=== PATIENT | female | born 1955 | race African-American/Black ===

== ENCOUNTER 2016-12-12 13:10 | Inpatient (IN) | payer OTHER ==
[~2016-12-12] VITALS: Ht 157.5 cm; Wt 73.3 kg
[2016-12-12] MEDS ORDERED: SODIUM CHLORIDE 0.9% 1,000 ML IV ONE (13:50)
[2016-12-12] MEDS ORDERED: MORPHINE SULFATE 10 MG/ML INJ 1ML SDV IV ONE (14:00)
[2016-12-12 14:17] LABS: Lymphocytes # (auto) 1.6 uL; Mean Platelet Volume 7.3 fL (6.9-10.8); Monocytes # (auto) 0.6 uL; Platelet Count (auto) 350 10^3/uL (140-450)
[2016-12-12 14:19] LABS: Basophils # (auto) 0.1 uL; Basophils % (auto) 0.8 % (0.0-2.0); Eosinophils # (auto) 0 uL; Eosinophils % (auto) 0.7 % (0.0-7.0); Hemoglobin 9.2 g/dL (12.2-16.2); Mean Corpuscular Hemoglobin 24.3 pg (28.0-32.0); Mean Corpuscular Hgb Conc. 30.8 g/dL (32.0-36.0); Monocytes % (auto) 8.6 % (0.0-12.0); Neutrophils # (auto) 4.6 uL; Neutrophils % (auto) 66.9 % (37.0-80.0); Nucleated Red Blood Cells % 0.1 %; White Blood Cell 6.9 10^3/uL (4.4-10.8)
[2016-12-12 14:30] LABS: Anisocytosis Slight; Hypochromia Slight; Microcytosis Slight; Platelet Estimate Adequate
[2016-12-12 14:43] LABS: Albumin 3.2 g/dL (3.4-5.0); Alkaline Phosphatase 102 U/L (45-117); Anion Gap 5 (5-15); Aspartate Aminotransferase 17 U/L (15-37); BUN/Creatinine Ratio 21.1; Bilirubin, Total 0.3 mg/dL (0.2-1.0); Blood Urea Nitrogen 20 mg/dL (7-18); Calcium 8.6 mg/dL (8.5-10.1); Carbon Dioxide 26 mmol/L (21-32); Chloride 109 mmol/L (98-107); GFR African American 77 mL/min; GFR Non-African American 64 mL/min; Glucose 114 mg/dL (74-106); Magnesium 2.4 mg/dL (1.6-2.6); Potassium 4.1 mmol/L (3.5-5.1); Sodium 140 mmol/L (136-145); Total Protein 7.2 g/dL (6.4-8.2)
[2016-12-12 14:45] LABS: B-Type Natriuretic Peptide 45.12 pg/mL (0-100)
[2016-12-12] MEDS ORDERED: ONDANSETRON HCL 4 MG/2 ML VIAL IV ONE (15:00)
[2016-12-12 15:14] LABS: Temperature: 21.9 C (20.0-25.0)
[2016-12-12] MEDS ORDERED: CYCLOBENZAPRINE HCL 10 MG TAB PO PRN (15:45)
[2016-12-12] MEDS ORDERED: LORazepam 0.5 MG TAB PO PRN (15:45)
[2016-12-12] MEDS ORDERED: MORPHINE SULFATE 10 MG/ML INJ 1ML SDV IV PRN (15:45)
[2016-12-12] MEDS ORDERED: NITROGLYCERIN 0.4 MG SL TAB SL PRN ×2 (15:45)
[2016-12-12] MEDS ORDERED: ACETAMINOPHEN 325 MG TAB PO PRN (15:45)
[2016-12-12] MEDS ORDERED: ALUM & MAG HYDROX-SIMETH LIQ(MAALOX) 30 ML PO ONE (15:45)
[2016-12-12] MEDS ORDERED: ZOLPIDEM TARTRATE 5 MG TAB PO PRN (15:45)
[2016-12-12] MEDS ORDERED: predniSONE 20 MG TAB PO ONE (16:00)
[2016-12-12] MEDS ORDERED: cloNIDine HCL 0.1 MG TAB PO PRN (16:00)
[2016-12-12] MEDS ORDERED: DEXTROSE (50%) 50ML SYRG IV PRN (16:00)
[2016-12-12 16:32] LABS: INR 0.95 (0.9-1.15); Prothrombin Time 10.4 sec (9.37-12.3)
[2016-12-12] MEDS: InsuLIN REG 1unit/0.01ml Soln (100units/ml) SC SCH ×2 (17:00→21:52)
[2016-12-12] MEDS: ACCU-CHEK COMFORT CURVE STRIP VI SCH ×2 (18:15→21:44)
[2016-12-12] MEDS: Boost Glucose Control 8 Ounces PO SCH (18:16)
[2016-12-12 18:30] VITALS: BP 113/83
[2016-12-12] MEDS: MORPHINE SULFATE 10 MG/ML INJ 1ML SDV IV PRN ×2 (18:33→23:34)
[2016-12-12] MEDS: ONDANSETRON HCL 4 MG/2 ML VIAL IV PRN ×2 (18:34→23:45)
[2016-12-12 18:52] VITALS: BP 113/83
[2016-12-12] MEDS: IPRATROPIUM BROM 0.5 MG/2.5ML INH SOL NEB SCH ×2 (19:11→20:25)
[2016-12-12] MEDS: ALBUTEROL SULF 2.5 MG/0.5ML(0.5%) NEB SOLN NEB SCH ×2 (19:11→20:26)
[2016-12-12 19:15] LABS: Urine Bilirubin Negative (Negative); Urine Blood Negative /uL (Negative); Urine Color Yellow (Yellow); Urine Glucose Normal (Normal); Urine Ketone Negative (Negative); Urine Nitrite Negative (Negative); Urine RBC <1 /hpf (0 - 4); Urine Squamous Epithelial Cell FEW /hpf (<5); Urine Urobilinogen Normal (Negative); Urine pH 5.5 (5.0-8.0)
[2016-12-12 21:19] VITALS: BP 113/83
[2016-12-12] MEDS ORDERED: diphenhdrAMINE HCL 25 MG CAP PO ONE (21:30)
[2016-12-12] MEDS: RANOLAZINE ER 500 MG TAB PO SCH (21:38)
[2016-12-12] MEDS: METOPROLOL TARTRATE 50 MG TAB PO SCH (21:40)
[2016-12-12] MEDS: GABAPENTIN 400 MG CAP PO SCH (21:40)
[2016-12-12] MEDS: SODIUM CHLOR 0.9% PF (SALINE LOCK) 10ML VIAL IV SCH (21:45)
[2016-12-12] MEDS: SYMBICORT 160/4.5 IN SCH (21:45)
[2016-12-12] MEDS: FLUTICASONE PROP NASAL SPR 0.05 % (50MCG) 16GM EACHNOSTRI SCH (21:52)
[2016-12-12 22:00] VITALS: BP 133/73
[2016-12-12] MEDS ORDERED: PRAVASTATIN SODIUM 20 MG TAB PO SCH (22:00)
[2016-12-13] MEDS ORDERED: ALBU2TAB4 INH (01:02)
[2016-12-13] MEDS ORDERED: CLOP75TA41 PO (01:05)
[2016-12-13] MEDS ORDERED: ZOLP10TA PO (01:05)
[2016-12-13] MEDS ORDERED: CYANPOW XX (01:05)
[2016-12-13] MEDS ORDERED: CYANCRY XX (01:05)
[2016-12-13] MEDS ORDERED: CYCL1TAB18 PO (01:08)
[2016-12-13] MEDS ORDERED: FLUT0.0535 NAS (01:09)
[2016-12-13] MEDS ORDERED: FURO20TA3 PO (01:10)
[2016-12-13] MEDS ORDERED: GABA-497 PO (01:10)
[2016-12-13] MEDS ORDERED: IPRA1SOL3 IN (01:11)
[2016-12-13] MEDS ORDERED: ISOS40TA6 PO (01:26)
[2016-12-13] MEDS ORDERED: LEVO100T8 PO (01:27)
[2016-12-13] MEDS ORDERED: LOSA100T27 PO (01:28)
[2016-12-13] MEDS ORDERED: MELO1TAB73 PO (01:40)
[2016-12-13] MEDS ORDERED: NITR0.4D10 TD (01:40)
[2016-12-13] MEDS ORDERED: METO1TAB9 PO (01:40)
[2016-12-13] MEDS ORDERED: METF-370 PO (01:40)
[2016-12-13] MEDS ORDERED: PERCOT PO (01:42)
[2016-12-13] MEDS ORDERED: PANT1INJ3 PO (01:44)
[2016-12-13] MEDS ORDERED: PRAV20TA3 PO (01:45)
[2016-12-13] MEDS ORDERED: RANO1000 PO (01:48)
[2016-12-13] MEDS ORDERED: ZOLP10TA6 PO (01:48)
[2016-12-13 05:00] VITALS: BP 138/67
[2016-12-13] MEDS: SODIUM CHLOR 0.9% PF (SALINE LOCK) 10ML VIAL IV SCH ×2 (05:41→14:00)
[2016-12-13] MEDS: GABAPENTIN 400 MG CAP PO SCH ×2 (05:42→15:42)
[2016-12-13] MEDS: ACCU-CHEK COMFORT CURVE STRIP VI SCH ×2 (06:21→11:30)
[2016-12-13] MEDS: InsuLIN REG 1unit/0.01ml Soln (100units/ml) SC SCH ×2 (06:22→11:30)
[2016-12-13 06:26] LABS: Basophils # (auto) 0.1 uL; Eosinophils # (auto) 0.1 uL; Lymphocytes # (auto) 2.3 uL; Mean Corpuscular Hemoglobin 24.3 pg (28.0-32.0); Neutrophils # (auto) 4.4 uL; Nucleated Red Blood Cells % 0.1 %; White Blood Cell 7.5 10^3/uL (4.4-10.8)
[2016-12-13 06:32] LABS: Basophils % (auto) 0.7 % (0.0-2.0); Eosinophils % (auto) 1.3 % (0.0-7.0); Hematocrit 31.5 % (36.0-46.0); Hemoglobin 9.8 g/dL (12.2-16.2); Lymphocytes % (auto) 29.9 % (10.0-50.0); Mean Corpuscular Hgb Conc. 31.1 g/dL (32.0-36.0); Mean Corpuscular Volume 78.2 fL (80.0-100.0); Mean Platelet Volume 7.6 fL (6.9-10.8); Monocytes # (auto) 0.7 uL; Monocytes % (auto) 9.2 % (0.0-12.0); Neutrophils % (auto) 58.9 % (37.0-80.0); Platelet Count (auto) 389 10^3/uL (140-450)
[2016-12-13 06:53] LABS: Albumin 3.2 g/dL (3.4-5.0); BUN/Creatinine Ratio 13.5; Bilirubin, Total 0.5 mg/dL (0.2-1.0); Calcium 8.8 mg/dL (8.5-10.1); Magnesium 2.3 mg/dL (1.6-2.6); Potassium 4.8 mmol/L (3.5-5.1); Total Protein 7.2 g/dL (6.4-8.2)
[2016-12-13 07:00] LABS: Red Cell Distribution Width 20.5 % (11.8-14.3)
[2016-12-13] MEDS ORDERED: LEVOTHYROXINE SODIUM 100 MCG TAB PO SCH (07:00)
[2016-12-13] MEDS: ONDANSETRON HCL 4 MG/2 ML VIAL IV PRN ×2 (07:10→10:34)
[2016-12-13] MEDS: ALBUTEROL SULF 2.5 MG/0.5ML(0.5%) NEB SOLN NEB SCH ×2 (07:21→13:09)
[2016-12-13] MEDS: IPRATROPIUM BROM 0.5 MG/2.5ML INH SOL NEB SCH ×2 (07:21→13:09)
[2016-12-13 07:51] LABS: Platelet Estimate Adequate
[2016-12-13 07:54] LABS: Anisocytosis Slight; Hypochromia Moderate; Microcytosis Slight; Stomatocytes Few
[2016-12-13] MEDS: Boost Glucose Control 8 Ounces PO SCH ×2 (08:00→12:00)
[2016-12-13 09:00] VITALS: BP 129/72
[2016-12-13] MEDS ORDERED: LIDOCAINE 5% TOPICAL PATCH TOP SCH (10:00)
[2016-12-13] MEDS: SYMBICORT 160/4.5 IN SCH (10:00)
[2016-12-13] MEDS ORDERED: LOSARTAN POTASSIUM 50 MG TAB PO SCH (10:00)
[2016-12-13] MEDS ORDERED: MELOXICAM 7.5MG PO SCH ×2 (10:00)
[2016-12-13] MEDS ORDERED: MAGNESIUM OXIDE 400 MG TAB PO SCH (10:00)
[2016-12-13] MEDS ORDERED: PANTOPRAZOLE 40 MG TAB PO SCH (10:00)
[2016-12-13] MEDS ORDERED: DOCUSATE SOD 100 MG CAP PO SCH (10:00)
[2016-12-13] MEDS ORDERED: ASPirin 81 mg TAB PO SCH (10:00)
[2016-12-13] MEDS ORDERED: ISOSORBIDE MONONITRATE 60 MG TAB PO SCH (10:00)
[2016-12-13] MEDS ORDERED: NITROGLYCERIN 0.4MG/HR TOPICAL PATCH TD SCH (10:00)
[2016-12-13] MEDS ORDERED: predniSONE 20 MG TAB PO SCH (10:00)
[2016-12-13] MEDS ORDERED: CLOPIDOGREL BISULFATE 75 MG TAB PO SCH (10:00)
[2016-12-13] MEDS: MORPHINE SULFATE 10 MG/ML INJ 1ML SDV IV PRN (10:24)
[2016-12-13] MEDS: METOPROLOL TARTRATE 50 MG TAB PO SCH (10:27)
[2016-12-13] MEDS: RANOLAZINE ER 500 MG TAB PO SCH (10:34)
[2016-12-13] MEDS: FLUTICASONE PROP NASAL SPR 0.05 % (50MCG) 16GM EACHNOSTRI SCH (10:34)
[2016-12-13 13:00] VITALS: BP 138/74
[2016-12-13 16:59] VITALS: BP 145/79
[2016-12-13 17:00] VITALS: BP 115/76
[2016-12-13] MEDS ORDERED: ALBUTEROL SULF 2.5 MG/0.5ML(0.5%) NEB SOLN ONE (19:26)
[2016-12-13] MEDS ORDERED: IPRATROPIUM BROM 0.5 MG/2.5ML INH SOL ONE (19:26)
[2016-12-14] MEDS ORDERED: FUROSEMIDE 20 MG TAB PO SCH (10:00)
== END 2016-12-13 17:38 | disposition home or self-care (01) | DRG 302 ==
LOC: ER 13:10 → TELE-WESTW 13:11
PROVIDERS: ADMIT Internal Medicine; ATTEND Nurse Practitioner Acute Care
DX: I25.110 Atherosclerotic heart disease of native coronary artery with unstable angina pectoris (principal); I50.43 Acute on chronic combined systolic (congestive) and diastolic (congestive) heart failure; E44.0 Moderate protein-calorie malnutrition; I13.0 Hypertensive heart and chronic kidney disease with heart failure and stage 1 through stage 4 chronic kidney disease, or unspecified chronic kidney disease; J98.11 Atelectasis; E11.21 Type 2 diabetes mellitus with diabetic nephropathy; E11.22 Type 2 diabetes mellitus with diabetic chronic kidney disease; N18.2 Chronic kidney disease, stage 2 (mild); E03.9 Hypothyroidism, unspecified; D63.8 Anemia in other chronic diseases classified elsewhere; J44.9 Chronic obstructive pulmonary disease, unspecified; E78.5 Hyperlipidemia, unspecified; E66.9 Obesity, unspecified; R55 Syncope and collapse; D50.9 Iron deficiency anemia, unspecified; I25.2 Old myocardial infarction; Z86.73 Personal history of transient ischemic attack (TIA), and cerebral infarction without residual deficits; Z87.891 Personal history of nicotine dependence; Z95.5 Presence of coronary angioplasty implant and graft; Z95.1 Presence of aortocoronary bypass graft; Z98.84 Bariatric surgery status; Z88.6 Allergy status to analgesic agent; Z91.018 Allergy to other foods; Z90.710 Acquired absence of both cervix and uterus; Z90.49 Acquired absence of other specified parts of digestive tract; Z68.29 Body mass index [BMI] 29.0-29.9, adult
CPT/HCPCS: 36415; 71010; 80053; 80061; 81001; 82962; 83036; 83540; 83735; 83880; 84443; 84484; 85025; 85379; 85610; 93005; 93306; 94640; 94761; 96361; 96374; 96375; J1815; J2405

== ENCOUNTER → 2016-12-15 | Outpatient (CLI) | payer OTHER ==
[~2016-12-15] MED LIST: ALBU2TAB4 INH; CLOP75TA41 PO; CYCL1TAB18 PO; FLUT0.0535 NAS; FURO20TA3 PO; GABA-497 PO; IPRA1SOL3 IN; ISOS40TA6 PO; LEVO100T8 PO; LOSA100T27 PO; MELO1TAB73 PO; METF-370 PO; METO1TAB9 PO; NITR0.4D10 TD; PANT1INJ3 PO; PERCOT PO; PRAV20TA3 PO; RANO1000 PO; ZOLP10TA PO; ZOLP10TA6 PO
== END | disposition home or self-care (01) ==
LOC: LAB 12:31
PROVIDERS: ATTEND Internal Medicine
DX: E11.9 Type 2 diabetes mellitus without complications (principal); G62.9 Polyneuropathy, unspecified; M54.9 Dorsalgia, unspecified; Z79.899 Other long term (current) drug therapy
CPT/HCPCS: 36415; 80307; 82043; 82607; 84207; 84439; 84443

== ENCOUNTER → 2016-12-25 | Outpatient (CLI) | payer OTHER | END | disposition home or self-care (01) | LOC: XY 07:52 | PROVIDERS: ATTEND Internal Medicine | DX: K30 Functional dyspepsia (principal) | CPT/HCPCS: 78264; A9541 ==

== ENCOUNTER → 2017-01-15 | Outpatient (CLI) | payer OTHER, MEDICAID ==
[~2017-01-15] MED LIST changes: -ZOLP10TA PO
== END | disposition home or self-care (01) ==
LOC: XY 09:33
PROVIDERS: ATTEND Internal Medicine
DX: M89.8X0 Other specified disorders of bone, multiple sites (principal)
CPT/HCPCS: 78306; A9503

== ENCOUNTER → 2017-01-16 | Outpatient (CLI) | payer OTHER ==
[2017-01-16 17:17] LABS: Eosinophils # (auto) 0.1 uL; Eosinophils % (auto) 0.8 % (0.0-7.0); Hematocrit 29.4 % (36.0-46.0); Hemoglobin 9.1 g/dL (12.2-16.2); Mean Corpuscular Hemoglobin 23.7 pg (28.0-32.0); Mean Corpuscular Hgb Conc. 30.8 g/dL (32.0-36.0); Monocytes # (auto) 0.5 uL
[2017-01-16 17:19] LABS: Basophils # (auto) 0.1 uL; Basophils % (auto) 0.8 % (0.0-2.0); Lymphocytes # (auto) 1.5 uL; Lymphocytes % (auto) 21.4 % (10.0-50.0); Mean Platelet Volume 7.4 fL (6.9-10.8); Monocytes % (auto) 6.8 % (0.0-12.0); Neutrophils % (auto) 70.2 % (37.0-80.0); Platelet Count (auto) 438 10^3/uL (140-450); Red Cell Distribution Width 18.8 % (11.8-14.3); White Blood Cell 7.1 10^3/uL (4.4-10.8)
[2017-01-16 17:50] LABS: Temperature: 22.1 C (20.0-25.0)
[2017-01-16 17:52] LABS: Albumin 3.2 g/dL (3.4-5.0); Bilirubin, Total 0.5 mg/dL (0.2-1.0); Calcium 8.7 mg/dL (8.5-10.1); Potassium 4.4 mmol/L (3.5-5.1); Total Protein 7.6 g/dL (6.4-8.2)
[2017-01-16 17:54] LABS: Hypochromia Moderate; Platelet Estimate Adequate
[2017-01-16 17:56] LABS: Tear Drop Cells FEW
[2017-01-16 17:57] LABS: Polychromasia Slight
[2017-01-16 17:59] LABS: Microcytosis Slight
[2017-01-16 18:00] LABS: Wright Stain Ready for Review
[2017-01-18 08:06] LABS: Erythropoietin 70.2 mIU/mL (2.6-18.5)
[2017-01-18 13:07] LABS: Thyroxine (T4) 7.5 ug/dL (4.5-12.0)
[2017-01-19 02:06] LABS: Haptoglobin 204 mg/dL (34-200)
== END | disposition home or self-care (01) ==
LOC: LAB 16:23
PROVIDERS: ATTEND Internal Medicine
DX: I25.10 Atherosclerotic heart disease of native coronary artery without angina pectoris (principal); J44.9 Chronic obstructive pulmonary disease, unspecified; Z95.1 Presence of aortocoronary bypass graft
CPT/HCPCS: 36415; 80053; 82607; 82728; 82746; 83010; 83540; 83550; 83615; 84439; 84443; 85025; 85045; 85652; 86880; 86885

== ENCOUNTER → 2017-01-29 | Outpatient (CLI) | payer OTHER ==
[~2017-01-29] MED LIST changes: +ALBUAER3 IN; +CYA100I IM; +FLUT0.05 NAS; -FLUT0.0535 NAS; -GABA-497 PO; +GABA300C10 PO; +HYDR-392 PO; +LEVO100C PO; +PANT40TA2 PO; +TRAZ50TA2 PO
== END | disposition home or self-care (01) ==
LOC: XY 08:10
PROVIDERS: ATTEND Internal Medicine
DX: M89.9 Disorder of bone, unspecified (principal)

== ENCOUNTER → 2017-02-27 | Outpatient (CLI) | payer OTHER | END | disposition home or self-care (01) | LOC: LAB 15:23 | PROVIDERS: ATTEND Internal Medicine | DX: D50.9 Iron deficiency anemia, unspecified (principal); I10 Essential (primary) hypertension; I25.10 Atherosclerotic heart disease of native coronary artery without angina pectoris; J44.9 Chronic obstructive pulmonary disease, unspecified; E11.9 Type 2 diabetes mellitus without complications | CPT/HCPCS: 86850; 86900; 86901; 86920 ==

== ENCOUNTER → 2017-03-08 | Outpatient (CLI) | payer OTHER | END | disposition home or self-care (01) | LOC: RT 09:57 | PROVIDERS: ATTEND Internal Medicine | DX: J44.9 Chronic obstructive pulmonary disease, unspecified (principal) | CPT/HCPCS: 36600; 82805 ==

== ENCOUNTER → 2017-04-30 | Outpatient (CLI) | payer MEDICARE, MEDICAID ==
[2017-04-30 10:53] LABS: Basophils # (auto) 0 uL; Basophils % (auto) 0.6 % (0.0-2.0); Eosinophils # (auto) 0.1 uL; Eosinophils % (auto) 1.6 % (0.0-7.0); Hematocrit 38.3 % (36.0-46.0); Hemoglobin 12.4 g/dL (12.2-16.2); Lymphocytes # (auto) 1.9 uL; Lymphocytes % (auto) 25.2 % (10.0-50.0); Mean Corpuscular Hemoglobin 28.1 pg (28.0-32.0); Mean Corpuscular Hgb Conc. 32.4 g/dL (32.0-36.0); Mean Corpuscular Volume 86.6 fL (80.0-100.0); Monocytes # (auto) 0.6 uL; Monocytes % (auto) 7.8 % (0.0-12.0); Neutrophils % (auto) 64.8 % (37.0-80.0); Nucleated Red Blood Cells % 0.1 %; Platelet Count (auto) 279 10^3/uL (140-450); Red Blood Cells 4.42 10^6/uL (4.0-5.20); White Blood Cell 7.6 10^3/uL (4.4-10.8)
[2017-04-30 11:01] LABS: Red Cell Distribution Width 24.5 % (11.8-14.3)
[2017-04-30 12:02] LABS: % Iron Saturation 39.4 % (15-50)
== END | disposition home or self-care (01) ==
LOC: LAB 09:55
PROVIDERS: ATTEND Internal Medicine
DX: D64.9 Anemia, unspecified (principal)
CPT/HCPCS: 36415; 83540; 83550; 85025

== ENCOUNTER 2017-05-02 07:21 | Day surgery (SDC) | payer MEDICARE, MEDICAID ==
[2017-04-30 10:54] LABS: Basophils # (auto) 0.1 uL; Basophils % (auto) 0.8 % (0.0-2.0); Eosinophils # (auto) 0.1 uL; Eosinophils % (auto) 1.5 % (0.0-7.0); Hematocrit 37.8 % (36.0-46.0); Hemoglobin 12.4 g/dL (12.2-16.2); Lymphocytes % (auto) 26.1 % (10.0-50.0); Mean Corpuscular Hemoglobin 28.3 pg (28.0-32.0); Mean Corpuscular Hgb Conc. 32.7 g/dL (32.0-36.0); Mean Corpuscular Volume 86.5 fL (80.0-100.0); Monocytes # (auto) 0.6 uL; Monocytes % (auto) 7.8 % (0.0-12.0); Neutrophils # (auto) 4.8 uL; Neutrophils % (auto) 63.8 % (37.0-80.0); Nucleated Red Blood Cells % 0.1 %; Platelet Count (auto) 280 10^3/uL (140-450); Red Blood Cells 4.37 10^6/uL (4.0-5.20); White Blood Cell 7.5 10^3/uL (4.4-10.8)
[2017-04-30 11:05] LABS: INR 0.94 (0.9-1.15); Partial Thromboplastin Time 22.3 sec (22.64-33.71); Prothrombin Time 10.2 sec (9.37-12.3)
[2017-04-30 11:24] LABS: Urine Bacteria FEW /hpf (None Seen); Urine Blood Negative /uL (Negative); Urine Mucus FEW (None Seen); Urine Specific Gravity 1.013 (1.001-1.035); Urine WBC 12 /hpf (0 - 5)
[2017-04-30 11:26] LABS: Red Cell Distribution Width 24.4 % (11.8-14.3)
[2017-04-30 11:45] LABS: Albumin 3.4 g/dL (3.4-5.0); BUN/Creatinine Ratio 19.3; Bilirubin, Total 0.4 mg/dL (0.2-1.0); Calcium 8.6 mg/dL (8.5-10.1); Potassium 4.4 mmol/L (3.5-5.1); Total Protein 7.1 g/dL (6.4-8.2)
[~2017-05-02] VITALS: Ht 157.5 cm; Wt 71.2 kg
[~2017-05-02 07:21] MED LIST changes: -CYCL1TAB18 PO; -FLUT0.05 NAS; -ISOS40TA6 PO; -LEVO100T8 PO; -MELO1TAB73 PO; -PANT1INJ3 PO; -PERCOT PO; -ZOLP10TA6 PO
[2017-05-02] MEDS ORDERED: ceFAZolin 1GM/50ML 50 ML IV ONE (07:35)
[2017-05-02] MEDS ORDERED: MIDAZOLAM HCL 1MG/1ML-2 ML VIAL ONE ×2 (09:20)
[2017-05-02] MEDS ORDERED: LIDOCAINE HCL 2 %PF INJ 10ML AMP IJ ONE (09:20)
[2017-05-02] MEDS ORDERED: PROPOFOL 10 MG/ML 20 ML IV ONE ×2 (09:20→09:21)
[2017-05-02] MEDS ORDERED: STERILE WATER 0 ML ONE (09:31)
[2017-05-02] MEDS ORDERED: ePHEDrine SULFATE 50 MG/ML AMP ONE (09:31)
[2017-05-02] MEDS ORDERED: ceFAZolin 1GM VL ONE (10:16)
[2017-05-02] MEDS ORDERED: HEPARIN 1,000 UNITS/ml 1ML VIAL ONE (10:16)
[2017-05-02] MEDS ORDERED: LIDOCAINE 1% HCL (LOCAL ANESTH.) INJ 20ML MDV ONE ×2 (10:16→10:17)
[2017-05-02] MEDS ORDERED: HEPARIN SODIUM (PORCINE) 5000 UNITS/ML 1ML VIAL ONE (10:17)
[2017-05-02] MEDS ORDERED: fentaNYL CITRATE 100 MCG/2 ML VL ONE (10:28)
[2017-05-02] MEDS ORDERED: NALOXONE HCL 0.4 MG/ML VIAL IV PRN (10:30)
[2017-05-02] MEDS ORDERED: MORPHINE SULFATE 4 MG/ML SYR/VIAL IV PRN (10:30)
[2017-05-02] MEDS ORDERED: ONDANSETRON HCL 4 MG/2 ML VIAL IV ONE (10:30)
[2017-05-02 12:09] VITALS: BP 120/74
== END 2017-05-02 12:15 | disposition home or self-care (01) ==
LOC: SUR 07:21
PROVIDERS: ATTEND Surgery
DX: Z45.2 Encounter for adjustment and management of vascular access device (principal); E66.9 Obesity, unspecified; Z88.6 Allergy status to analgesic agent; Z91.02 Food additives allergy status; Z88.8 Allergy status to other drugs, medicaments and biological substances; I25.119 Atherosclerotic heart disease of native coronary artery with unspecified angina pectoris; Z95.1 Presence of aortocoronary bypass graft; J44.9 Chronic obstructive pulmonary disease, unspecified; J45.909 Unspecified asthma, uncomplicated; E11.9 Type 2 diabetes mellitus without complications; Z87.891 Personal history of nicotine dependence; Z90.710 Acquired absence of both cervix and uterus; Z98.84 Bariatric surgery status; F09 Unspecified mental disorder due to known physiological condition; K21.9 Gastro-esophageal reflux disease without esophagitis; D64.9 Anemia, unspecified; I63.9 Cerebral infarction, unspecified
CPT/HCPCS: 36415; 36561; 71045; 80053; 81001; 82962; 85025; 85610; 85730; C1788; J0690; J1644; J2001; J2250; J2704; J3010; J7040

== ENCOUNTER 2017-05-22 20:15 | Emergency (ER) | payer MEDICARE, MEDICAID ==
[~2017-05-22] VITALS: Ht 157.5 cm; Wt 72.6 kg
[2017-05-22 20:17] VITALS: BP 163/82
[2017-05-22 21:42] LABS: Basophils # (auto) 0.1 uL; Basophils % (auto) 1.7 % (0.0-2.0); Eosinophils # (auto) 0.1 uL; Eosinophils % (auto) 1.4 % (0.0-7.0); Hematocrit 39.7 % (36.0-46.0); Hemoglobin 12.9 g/dL (12.2-16.2); Lymphocytes # (auto) 1.9 uL; Lymphocytes % (auto) 22.1 % (10.0-50.0); Mean Corpuscular Hemoglobin 29.4 pg (28.0-32.0); Mean Corpuscular Hgb Conc. 32.6 g/dL (32.0-36.0); Mean Corpuscular Volume 90.3 fL (80.0-100.0); Monocytes # (auto) 0.6 uL; Monocytes % (auto) 6.9 % (0.0-12.0); Neutrophils # (auto) 5.7 uL; Neutrophils % (auto) 67.9 % (37.0-80.0); Nucleated Red Blood Cells % 0.1 %; Platelet Count (auto) 276 10^3/uL (140-450); Red Cell Distribution Width 19.3 % (11.8-14.3); White Blood Cell 8.4 10^3/uL (4.4-10.8)
[2017-05-22 22:01] LABS: Alanine Aminotransferase 26 U/L (13-56); Albumin 3.5 g/dL (3.4-5.0); Anion Gap 7 (5-15); Aspartate Aminotransferase 22 U/L (15-37); BUN/Creatinine Ratio 17.4; Blood Urea Nitrogen 16 mg/dL (7-18); Calcium 8.7 mg/dL (8.5-10.1); Carbon Dioxide 22 mmol/L (21-32); Chloride 110 mmol/L (98-107); GFR African American 80 mL/min; GFR Non-African American 66 mL/min; Glucose 193 mg/dL (74-106); Magnesium 2.1 mg/dL (1.6-2.6); Sodium 139 mmol/L (136-145)
[2017-05-22 22:06] LABS: Alkaline Phosphatase 121 U/L (45-117); Bilirubin, Total 0.2 mg/dL (0.2-1.0); Total Protein 7.3 g/dL (6.4-8.2)
[2017-05-22 22:11] LABS: INR 0.95 (0.9-1.15); Partial Thromboplastin Time 25.2 sec (22.64-33.71); Prothrombin Time 10.3 sec (9.37-12.3)
[2017-05-23] MEDS ORDERED: MORPHINE SULFATE 4 MG/ML SYR/VIAL IV ONE (01:45)
[2017-05-23] MEDS ORDERED: ONDANSETRON HCL 4 MG/2 ML VIAL IV ONE (01:45)
[2017-05-23] MEDS ORDERED: ACETAMINOPHEN/CODEINE#3 (300/30mg) TAB PO ONE (04:15)
== END 2017-05-23 03:38 | disposition home or self-care (01) ==
LOC: ER 20:15
DX: R07.89 Other chest pain (principal); I10 Essential (primary) hypertension; J44.9 Chronic obstructive pulmonary disease, unspecified; K21.9 Gastro-esophageal reflux disease without esophagitis; I11.0 Hypertensive heart disease with heart failure; I50.9 Heart failure, unspecified; I25.2 Old myocardial infarction; E78.00 Pure hypercholesterolemia, unspecified; Z86.73 Personal history of transient ischemic attack (TIA), and cerebral infarction without residual deficits; Z86.2 Personal history of diseases of the blood and blood-forming organs and certain disorders involving the immune mechanism; Z95.1 Presence of aortocoronary bypass graft; Z95.5 Presence of coronary angioplasty implant and graft; Z88.6 Allergy status to analgesic agent; Z91.018 Allergy to other foods
CPT/HCPCS: 36415; 71045; 80053; 83735; 83880; 84484; 85025; 85610; 85730; 93005; 96374; 96375; 99285; J2270; J2405

== ENCOUNTER → 2017-06-05 | Outpatient (CLI) | payer MEDICARE, MEDICAID ==
[2017-06-05 10:58] LABS: Basophils # (auto) 0 uL; Basophils % (auto) 0.4 % (0.0-2.0); Eosinophils # (auto) 0.1 uL; Eosinophils % (auto) 0.7 % (0.0-7.0); Hematocrit 43.5 % (36.0-46.0); Lymphocytes # (auto) 1.7 uL; Lymphocytes % (auto) 23.7 % (10.0-50.0); Mean Corpuscular Hemoglobin 29.5 pg (28.0-32.0); Mean Corpuscular Hgb Conc. 32.1 g/dL (32.0-36.0); Mean Corpuscular Volume 91.8 fL (80.0-100.0); Monocytes # (auto) 0.6 uL; Monocytes % (auto) 7.9 % (0.0-12.0); Neutrophils # (auto) 4.8 uL; Neutrophils % (auto) 67.3 % (37.0-80.0); Platelet Count (auto) 323 10^3/uL (140-450); Red Blood Cells 4.74 10^6/uL (4.0-5.20); Red Cell Distribution Width 15.3 % (11.8-14.3); White Blood Cell 7.1 10^3/uL (4.4-10.8)
[2017-06-05 12:26] LABS: % Iron Saturation 38.2 % (15-50)
== END | disposition home or self-care (01) ==
LOC: LAB 10:35
PROVIDERS: ATTEND Internal Medicine
DX: D64.9 Anemia, unspecified (principal); E11.9 Type 2 diabetes mellitus without complications; J44.9 Chronic obstructive pulmonary disease, unspecified; I10 Essential (primary) hypertension; Z87.891 Personal history of nicotine dependence
CPT/HCPCS: 36415; 82728; 83540; 83550; 85025

== ENCOUNTER 2017-07-07 06:32 | Emergency (ER) | payer MEDICARE, MEDICAID ==
[~2017-07-07] VITALS: Ht 157.5 cm; Wt 71.2 kg
[~2017-07-07 06:32] MED LIST changes: -ALBU2TAB4 INH; +ISO60SRT PO; +ZOLP10TA PO
[2017-07-07] MEDS ORDERED: cloNIDine HCL 0.1 MG TAB ONE (06:40)
[2017-07-07] MEDS ORDERED: cloNIDine HCL 0.1 MG TAB PO ONE (07:00)
[2017-07-07 07:19] VITALS: BP 182/96
== END 2017-07-07 08:23 | disposition home or self-care (01) ==
LOC: ER 06:32
DX: S83.91XA Sprain of unspecified site of right knee, initial encounter (principal); S80.11XA Contusion of right lower leg, initial encounter; S90.31XA Contusion of right foot, initial encounter; I11.0 Hypertensive heart disease with heart failure; I50.9 Heart failure, unspecified; J44.9 Chronic obstructive pulmonary disease, unspecified; K21.9 Gastro-esophageal reflux disease without esophagitis; I25.2 Old myocardial infarction; E78.5 Hyperlipidemia, unspecified; W01.0XXA Fall on same level from slipping, tripping and stumbling without subsequent striking against object, initial encounter; Y93.89 Activity, other specified; Y92.89 Other specified places as the place of occurrence of the external cause; Y99.8 Other external cause status; Z86.73 Personal history of transient ischemic attack (TIA), and cerebral infarction without residual deficits; Z95.1 Presence of aortocoronary bypass graft
CPT/HCPCS: 73564; 73590; 73630

== ENCOUNTER 2017-07-15 16:29 | Observation (INO) | payer MEDICARE, MEDICAID ==
[~2017-07-15] VITALS: Ht 157.5 cm; Wt 69.9 kg
[2017-07-15] MEDS ORDERED: ONDANSETRON HCL 4 MG/2 ML VIAL IV ONE (17:30)
[2017-07-15] MEDS ORDERED: MORPHINE SULFATE 8mg/ml INJ SDV IV ONE (17:30)
[2017-07-15 17:47] LABS: Basophils # (auto) 0 uL; Basophils % (auto) 0.5 % (0.0-2.0); Eosinophils # (auto) 0.1 uL; Eosinophils % (auto) 0.9 % (0.0-7.0); Hemoglobin 11.6 g/dL (12.2-16.2); Lymphocytes # (auto) 1.9 uL; Lymphocytes % (auto) 24.6 % (10.0-50.0); Mean Corpuscular Hemoglobin 31.4 pg (28.0-32.0); Mean Corpuscular Volume 95.3 fL (80.0-100.0); Monocytes # (auto) 0.7 uL; Monocytes % (auto) 8.8 % (0.0-12.0); Neutrophils % (auto) 65.2 % (37.0-80.0); Platelet Count (auto) 254 10^3/uL (140-450); Red Blood Cells 3.67 10^6/uL (4.0-5.20); White Blood Cell 7.7 10^3/uL (4.4-10.8)
[2017-07-15 18:00] LABS: INR 0.92 (0.9-1.15); Partial Thromboplastin Time 23.3 sec (23.78-33.04); Prothrombin Time 9.9 sec (9.27-12.13)
[2017-07-15 18:08] LABS: Alanine Aminotransferase 21 U/L (13-56); Albumin 3.1 g/dL (3.4-5.0); Alkaline Phosphatase 125 U/L (45-117); Anion Gap 7 (5-15); Aspartate Aminotransferase 18 U/L (15-37); BUN/Creatinine Ratio 20.8; Bilirubin, Total 0.2 mg/dL (0.2-1.0); Blood Urea Nitrogen 15 mg/dL (7-18); Calcium 8.3 mg/dL (8.5-10.1); Carbon Dioxide 27 mmol/L (21-32); Chloride 105 mmol/L (98-107); GFR African American 106 mL/min; GFR Non-African American 88 mL/min; Glucose 130 mg/dL (74-106); Magnesium 2.2 mg/dL (1.6-2.6); Sodium 139 mmol/L (136-145); Total Protein 6.5 g/dL (6.4-8.2)
[2017-07-15 20:39] VITALS: BP 134/77
[2017-07-15] MEDS ORDERED: MORPHINE SULFATE 8mg/ml INJ SDV IV PRN (20:45)
[2017-07-15] MEDS ORDERED: ONDANSETRON HCL 4 MG/2 ML VIAL IV PRN (20:45)
[2017-07-15] MEDS ORDERED: HYDROcodone-ACET 5/325MG TAB PO PRN (20:45)
[2017-07-15] MEDS ORDERED: NITROGLYCERIN 0.4 MG SL TAB SL PRN (20:45)
[2017-07-15] MEDS ORDERED: ACETAMINOPHEN 325 MG TAB PO PRN (20:45)
[2017-07-15] MEDS ORDERED: TEMAZEPAM 15 MG CAP PO PRN (20:45)
[2017-07-15] MEDS ORDERED: RANEXA 1000 MG PO SCH (22:00)
[2017-07-15] MEDS ORDERED: PRAVASTATIN SODIUM 20 MG TAB PO SCH (22:00)
[2017-07-15] MEDS ORDERED: GABAPENTIN 300 MG CAP PO SCH (22:00)
[2017-07-16] MEDS ORDERED: LEVOTHYROXINE SODIUM 50 MCG TAB PO SCH (07:00)
[2017-07-16] MEDS ORDERED: PANTOPRAZOLE 40 MG TAB PO SCH (10:00)
[2017-07-16] MEDS ORDERED: ENOXAPARIN SOD 40 MG/0.4 ML SYRINGE SC SCH (10:00)
[2017-07-16] MEDS ORDERED: LOSARTAN POTASSIUM 50 MG TAB PO SCH (10:00)
[2017-07-16] MEDS ORDERED: FUROSEMIDE 20 MG TAB PO SCH (10:00)
[2017-07-16] MEDS ORDERED: CLOPIDOGREL BISULFATE 75 MG TAB PO SCH (10:00)
[2017-07-16] MEDS ORDERED: ISOSORBIDE MONONITRATE 60 MG TAB PO SCH (10:00)
[2017-07-16] MEDS ORDERED: METOPROLOL SUCCINATE XL 50 MG TAB PO SCH (10:00)
== END 2017-07-15 22:09 | disposition left against medical advice (07) | DRG 313 ==
LOC: ER 16:29 → OVERFLOW 16:30 → ER 22:09
PROVIDERS: ADMIT Family Medicine; ATTEND Family Medicine
DX: R07.89 Other chest pain (principal); I25.10 Atherosclerotic heart disease of native coronary artery without angina pectoris; I11.0 Hypertensive heart disease with heart failure; I50.9 Heart failure, unspecified; I25.2 Old myocardial infarction; D64.9 Anemia, unspecified; E11.9 Type 2 diabetes mellitus without complications; E78.5 Hyperlipidemia, unspecified; S80.11XD Contusion of right lower leg, subsequent encounter; J44.9 Chronic obstructive pulmonary disease, unspecified; Z95.1 Presence of aortocoronary bypass graft; K21.9 Gastro-esophageal reflux disease without esophagitis; Z90.49 Acquired absence of other specified parts of digestive tract; Z90.710 Acquired absence of both cervix and uterus; Z95.5 Presence of coronary angioplasty implant and graft; Z86.73 Personal history of transient ischemic attack (TIA), and cerebral infarction without residual deficits; Z88.6 Allergy status to analgesic agent; W10.9XXD Fall (on) (from) unspecified stairs and steps, subsequent encounter; Y93.89 Activity, other specified; Y92.89 Other specified places as the place of occurrence of the external cause; Y99.8 Other external cause status; Z79.899 Other long term (current) drug therapy
CPT/HCPCS: 36415; 71045; 80053; 83735; 83880; 84443; 84484; 85025; 85610; 85730; 93005; 96374; 96375; 99285; G0378; J2270; J2405

== ENCOUNTER → 2017-09-27 | Outpatient (CLI) | payer OTHER, MEDICAID ==
[2017-09-27 11:23] LABS: Basophils # (auto) 0 uL; Basophils % (auto) 0.8 % (0.0-2.0); Eosinophils # (auto) 0.1 uL; Eosinophils % (auto) 2.1 % (0.0-7.0); Hematocrit 34.6 % (36.0-46.0); Hemoglobin 11.3 g/dL (12.2-16.2); Lymphocytes # (auto) 1.3 uL; Lymphocytes % (auto) 24.6 % (10.0-50.0); Mean Corpuscular Hemoglobin 30.6 pg (28.0-32.0); Mean Corpuscular Hgb Conc. 32.6 g/dL (32.0-36.0); Monocytes # (auto) 0.4 uL; Monocytes % (auto) 7.9 % (0.0-12.0); Neutrophils # (auto) 3.5 uL; Neutrophils % (auto) 64.6 % (37.0-80.0); Nucleated Red Blood Cells % 0.1 %; Platelet Count (auto) 257 10^3/uL (140-450); Red Blood Cells 3.68 10^6/uL (4.0-5.20); Red Cell Distribution Width 13.7 % (11.8-14.3); White Blood Cell 5.4 10^3/uL (4.4-10.8)
[2017-09-27 11:47] LABS: % Iron Saturation 26.6 % (15-50)
== END | disposition home or self-care (01) ==
LOC: LAB 11:11
PROVIDERS: ATTEND Internal Medicine
DX: D64.9 Anemia, unspecified (principal); I11.0 Hypertensive heart disease with heart failure; I50.23 Acute on chronic systolic (congestive) heart failure; I25.10 Atherosclerotic heart disease of native coronary artery without angina pectoris; J44.9 Chronic obstructive pulmonary disease, unspecified; K21.9 Gastro-esophageal reflux disease without esophagitis; E78.5 Hyperlipidemia, unspecified; E03.9 Hypothyroidism, unspecified; Z79.899 Other long term (current) drug therapy
CPT/HCPCS: 36415; 82728; 83540; 83550; 85025

== ENCOUNTER → 2018-01-16 | Outpatient (CLI) | payer OTHER, MEDICAID ==
[~2018-01-16] MED LIST changes: +LOSA-49 PO; -LOSA100T27 PO
[2018-01-16 10:21] LABS: Basophils # (auto) 0 uL; Basophils % (auto) 0.7 % (0.0-2.0); Eosinophils # (auto) 0.1 uL; Eosinophils % (auto) 1.1 % (0.0-7.0); Hematocrit 38.6 % (36.0-46.0); Hemoglobin 12.4 g/dL (12.2-16.2); Lymphocytes # (auto) 1.3 uL; Lymphocytes % (auto) 20.6 % (10.0-50.0); Mean Corpuscular Hemoglobin 30.5 pg (28.0-32.0); Mean Corpuscular Volume 95.2 fL (80.0-100.0); Monocytes # (auto) 0.6 uL; Neutrophils # (auto) 4.4 uL; Neutrophils % (auto) 68.6 % (37.0-80.0); Nucleated Red Blood Cells % 0.1 %; Platelet Count (auto) 258 10^3/uL (140-450); Red Blood Cells 4.05 10^6/uL (4.0-5.20); Red Cell Distribution Width 13.2 % (11.8-14.3); White Blood Cell 6.5 10^3/uL (4.4-10.8)
[2018-01-16 11:10] LABS: Albumin 3.7 g/dL (3.4-5.0); Potassium 3.8 mmol/L (3.5-5.1)
[2018-01-16 11:13] LABS: BUN/Creatinine Ratio 11.9; Bilirubin, Total 0.5 mg/dL (0.2-1.0); Total Protein 7.5 g/dL (6.4-8.2)
== END | disposition home or self-care (01) ==
LOC: LAB 09:49
PROVIDERS: ATTEND Internal Medicine
DX: D64.9 Anemia, unspecified (principal)
CPT/HCPCS: 36415; 80053; 82728; 83540; 83615; 85025

== ENCOUNTER → 2018-04-09 | Outpatient (CLI) | payer MEDICARE, MEDICAID ==
[2018-04-09 12:04] LABS: Basophils # (auto) 0.1 uL; Basophils % (auto) 0.7 % (0.0-2.0); Eosinophils # (auto) 0.2 uL; Eosinophils % (auto) 1.6 % (0.0-7.0); Hematocrit 43.3 % (36.0-46.0); Hemoglobin 14.1 g/dL (12.2-16.2); Lymphocytes # (auto) 2.5 uL; Lymphocytes % (auto) 23.8 % (10.0-50.0); Mean Corpuscular Hemoglobin 30.5 pg (28.0-32.0); Mean Corpuscular Hgb Conc. 32.6 g/dL (32.0-36.0); Mean Corpuscular Volume 93.6 fL (80.0-100.0); Monocytes # (auto) 0.9 uL; Monocytes % (auto) 8.8 % (0.0-12.0); Neutrophils # (auto) 6.8 uL; Neutrophils % (auto) 65.1 % (37.0-80.0); Nucleated Red Blood Cells % 0.1 %; Platelet Count (auto) 222 10^3/uL (140-450); Red Blood Cells 4.62 10^6/uL (4.0-5.20); Red Cell Distribution Width 14.4 % (11.8-14.3); White Blood Cell 10.5 10^3/uL (4.4-10.8)
[2018-04-09 12:18] LABS: Albumin 3.5 g/dL (3.4-5.0); Calcium 8.8 mg/dL (8.5-10.1); Potassium 4.9 mmol/L (3.5-5.1)
[2018-04-09 12:21] LABS: BUN/Creatinine Ratio 21.8; Bilirubin, Total 0.3 mg/dL (0.2-1.0); Total Protein 7.1 g/dL (6.4-8.2)
[2018-04-09 12:37] LABS: % Iron Saturation 29.7 % (15-50)
== END | disposition home or self-care (01) ==
LOC: LAB 11:11
PROVIDERS: ATTEND Internal Medicine
DX: D64.9 Anemia, unspecified (principal)
CPT/HCPCS: 36415; 80053; 82728; 83540; 83550; 83615; 85025

== ENCOUNTER → 2018-05-08 | Day surgery (SDC) | payer MEDICARE, MEDICAID ==
[2018-05-06 12:51] LABS: Basophils # (auto) 0 uL; Basophils % (auto) 0.4 % (0.0-2.0); Eosinophils # (auto) 0.1 uL; Eosinophils % (auto) 1.3 % (0.0-7.0); Hematocrit 41.3 % (36.0-46.0); Hemoglobin 13.5 g/dL (12.2-16.2); Lymphocytes # (auto) 1.8 uL; Lymphocytes % (auto) 21.6 % (10.0-50.0); Mean Corpuscular Hemoglobin 31.2 pg (28.0-32.0); Mean Corpuscular Hgb Conc. 32.7 g/dL (32.0-36.0); Mean Corpuscular Volume 95.4 fL (80.0-100.0); Monocytes # (auto) 0.7 uL; Neutrophils # (auto) 5.8 uL; Neutrophils % (auto) 68.7 % (37.0-80.0); Nucleated Red Blood Cells % 0.1 %; Platelet Count (auto) 231 10^3/uL (140-450); Red Blood Cells 4.33 10^6/uL (4.0-5.20); Red Cell Distribution Width 14.4 % (11.8-14.3); White Blood Cell 8.4 10^3/uL (4.4-10.8)
[2018-05-06 13:02] LABS: INR 0.93 (0.9-1.15); Partial Thromboplastin Time 24.8 sec (23.78-33.04)
[2018-05-06 13:14] LABS: Potassium 4.2 mmol/L (3.5-5.1)
[2018-05-06 13:21] LABS: Albumin 3.4 g/dL (3.4-5.0); BUN/Creatinine Ratio 19.8; Bilirubin, Total 0.3 mg/dL (0.2-1.0); Calcium 9.1 mg/dL (8.5-10.1); Total Protein 7.3 g/dL (6.4-8.2)
[~2018-05-08] VITALS: Ht 157.5 cm; Wt 68.0 kg
[~2018-05-08] MED LIST changes: +CYCL1TAB18 PO; +FLUT50SP28; +HEPARIN 1,000 UNITS/ml 1ML VIAL ONE; +HEPARIN SODIUM (PORCINE) 5000 UNITS/ML 1ML VIAL ONE; -HYDR-392 PO; +LIDOCAINE 1% HCL (LOCAL ANESTH.) INJ 20ML MDV ONE; +MELO1TAB73 PO; +MIDAZOLAM HCL 1MG/1ML-2 ML VIAL ONE; +ONDANSETRON HCL 4 MG/2 ML VIAL ONE; +OXYC325T14 PO; +POVIDONE IODINE 10 % TOPICAL OINT 30GM TOP ONE; +PROPOFOL 10 MG/ML 20 ML IV ONE; +SODIUM CHLORIDE LOCK 10 ML ONE; -TRAZ50TA2 PO; +ceFAZolin 1GM VL ONE; +ceFAZolin 1GM/50ML 50 ML IV ONE; +fentaNYL CITRATE 100 MCG/2 ML VL ONE
[2018-05-08 20:42] VITALS: BP 118/86
== END | disposition home or self-care (01) ==
LOC: SUR 13:03
PROVIDERS: ATTEND Surgery
DX: Z45.2 Encounter for adjustment and management of vascular access device (principal); I50.9 Heart failure, unspecified; J43.9 Emphysema, unspecified; E11.9 Type 2 diabetes mellitus without complications; K21.9 Gastro-esophageal reflux disease without esophagitis; D64.9 Anemia, unspecified; I10 Essential (primary) hypertension; E07.9 Disorder of thyroid, unspecified; Z88.6 Allergy status to analgesic agent; Z91.018 Allergy to other foods; Z90.710 Acquired absence of both cervix and uterus; Z95.1 Presence of aortocoronary bypass graft; Z98.890 Other specified postprocedural states; Z79.899 Other long term (current) drug therapy
CPT/HCPCS: 36415; 36589; 80053; 82962; 85025; 85610; 85730; A6257; J0690; J2001; J2250; J2405; J2704; J3010

== ENCOUNTER 2018-06-17 11:13 | Inpatient (IN) | payer MEDICARE, MEDICAID ==
[~2018-06-17] VITALS: Ht 157.5 cm; Wt 76.2 kg
[~2018-06-17 11:13] MED LIST changes: -HEPARIN 1,000 UNITS/ml 1ML VIAL ONE; -HEPARIN SODIUM (PORCINE) 5000 UNITS/ML 1ML VIAL ONE; -LIDOCAINE 1% HCL (LOCAL ANESTH.) INJ 20ML MDV ONE; -MIDAZOLAM HCL 1MG/1ML-2 ML VIAL ONE; -ONDANSETRON HCL 4 MG/2 ML VIAL ONE; -POVIDONE IODINE 10 % TOPICAL OINT 30GM TOP ONE; -PROPOFOL 10 MG/ML 20 ML IV ONE; -SODIUM CHLORIDE LOCK 10 ML ONE; -ceFAZolin 1GM VL ONE; -ceFAZolin 1GM/50ML 50 ML IV ONE; -fentaNYL CITRATE 100 MCG/2 ML VL ONE
[2018-06-17 11:53] LABS: Basophils # (auto) 0.1 uL; Basophils % (auto) 1.4 % (0.0-2.0); Eosinophils # (auto) 0 uL; Eosinophils % (auto) 0.5 % (0.0-7.0); Hematocrit 38.9 % (36.0-46.0); Hemoglobin 12.9 g/dL (12.2-16.2); Lymphocytes # (auto) 1.8 uL; Lymphocytes % (auto) 24.4 % (10.0-50.0); Mean Corpuscular Hemoglobin 31.9 pg (28.0-32.0); Mean Corpuscular Hgb Conc. 33.1 g/dL (32.0-36.0); Mean Corpuscular Volume 96.3 fL (80.0-100.0); Monocytes # (auto) 0.5 uL; Monocytes % (auto) 7.3 % (0.0-12.0); Neutrophils % (auto) 66.4 % (37.0-80.0); Platelet Count (auto) 254 10^3/uL (140-450); Red Blood Cells 4.04 10^6/uL (4.0-5.20); Red Cell Distribution Width 13.9 % (11.8-14.3); White Blood Cell 7.6 10^3/uL (4.4-10.8)
[2018-06-17] MEDS ORDERED: MORPHINE SULFATE 4 MG/ML SYR/VIAL IV ONE (12:00)
[2018-06-17] MEDS ORDERED: ONDANSETRON HCL 4 MG/2 ML VIAL IV ONE (12:00)
[2018-06-17 12:07] LABS: Chloride 102 mmol/L (98-107); Potassium 4.2 mmol/L (3.5-5.1); Sodium 136 mmol/L (136-145)
[2018-06-17 12:11] LABS: Albumin 3.4 g/dL (3.4-5.0); Anion Gap 5 (5-15); Blood Urea Nitrogen 15 mg/dL (7-18); Calcium 8.7 mg/dL (8.5-10.1); Carbon Dioxide 29 mmol/L (21-32); Glucose 287 mg/dL (74-106); Magnesium 1.9 mg/dL (1.6-2.6)
[2018-06-17 12:16] LABS: Alanine Aminotransferase 42 U/L (13-56); Alkaline Phosphatase 98 U/L (45-117); Aspartate Aminotransferase 27 U/L (15-37); BUN/Creatinine Ratio 12.9; Bilirubin, Total 0.3 mg/dL (0.2-1.0); GFR African American 61 mL/min; GFR Non-African American 50 mL/min
[2018-06-17] MEDS ORDERED: CYCLOBENZAPRINE HCL 10 MG TAB PO PRN (13:30)
[2018-06-17] MEDS ORDERED: NITROGLYCERIN 0.4 MG SL TAB SL PRN (13:30)
[2018-06-17] MEDS ORDERED: DEXTROSE (50%) 50ML SYRG IV PRN (13:30)
[2018-06-17] MEDS ORDERED: MORPHINE SULF INJ 2 MG/ML SYRINGE 1ML IV PRN (13:30)
[2018-06-17] MEDS ORDERED: ACETAMINOPHEN 500 MG TAB PO PRN (13:30)
[2018-06-17] MEDS ORDERED: ISOSORBIDE MONONITRATE 60 MG TAB PO ONE (14:00)
[2018-06-17] MEDS: HYDROcodone-ACET 5/325MG TAB PO PRN (14:15)
[2018-06-17 15:35] VITALS: BP 119/67
[2018-06-17] MEDS ORDERED: ZOLP-158 PO (15:54)
[2018-06-17 16:00] VITALS: BP 121/67
[2018-06-17] MEDS: MORPHINE SULF INJ 2 MG/ML SYRINGE 1ML IV PRN ×2 (16:00→20:33)
[2018-06-17] MEDS ORDERED: CYAN100060 INJ (16:01)
[2018-06-17] MEDS: ACCU-CHEK COMFORT CURVE STRIP VI SCH ×2 (17:23→21:57)
[2018-06-17] MEDS: GABAPENTIN 400 MG CAP PO SCH ×2 (17:33→21:54)
[2018-06-17] MEDS: InsuLIN REG 1unit/0.01ml Soln (100units/ml) SC SCH ×2 (17:33→22:00)
[2018-06-17] MEDS: diphenhdrAMINE HCL 25 MG CAP PO PRN (17:34)
--- NOTE | 2018-06-17 19:50 | NUR ---
Opening Shift Note Assumed care of patient, awake and alert, oriented x 4. On oxygen at 2L via NC with even and unlabored respirations. No S/S of distress/SOB. Bed low locked position with side rails up x 2 and call light within reach. Instructed on POC and to call for assist PRN, will continue to monitor for changes Q1hr and PRN.
[2018-06-17] MEDS: DOCUSATE SOD 100 MG CAP PO SCH (21:53)
[2018-06-17] MEDS: RANOLAZINE ER 500 MG TAB PO SCH (21:54)
[2018-06-17] MEDS: FAMOTIDINE 20 MG TAB PO SCH (21:54)
[2018-06-17 22:00] VITALS: BP 131/65
--- NOTE | 2018-06-17 22:00 | NUR ---
Adelaida Aleman Np RE: sleeping pill patient takes Ambien at home, patient requesting sleeping pill. awaiting call back. will continue care.
[2018-06-17] MEDS ORDERED: ZOLPIDEM TARTRATE 5 MG TAB PO ONE (22:15)
--- NOTE | 2018-06-17 22:15 | NUR ---
Received call back from MIKE Aleman updated on patient status, new order received for Ambien 5mg PO once. Read back and verified. Will continue care.
[2018-06-17] MEDS: ALBUTEROL SULF 2.5 MG/0.5ML(0.5%) NEB SOLN NEB PRN (22:54)
[2018-06-17] MEDS: IPRATROPIUM BROM 0.5 MG/2.5ML INH SOL NEB PRN (22:55)
[2018-06-18] MEDS: MORPHINE SULF INJ 2 MG/ML SYRINGE 1ML IV PRN ×4 (04:19→20:55)
[2018-06-18] MEDS: diphenhdrAMINE HCL 25 MG CAP PO PRN ×3 (04:25→21:06)
[2018-06-18 04:30] VITALS: BP 117/72
[2018-06-18] MEDS: GABAPENTIN 400 MG CAP PO SCH ×4 (06:19→20:58)
[2018-06-18] MEDS: ALBUTEROL SULF 2.5 MG/0.5ML(0.5%) NEB SOLN NEB PRN ×4 (06:20→22:22)
[2018-06-18] MEDS: IPRATROPIUM BROM 0.5 MG/2.5ML INH SOL NEB PRN ×4 (06:20→22:22)
[2018-06-18] MEDS: HYDROcodone-ACET 5/325MG TAB PO PRN (06:20)
[2018-06-18] MEDS: ACCU-CHEK COMFORT CURVE STRIP VI SCH ×4 (06:25→21:12)
[2018-06-18] MEDS: InsuLIN REG 1unit/0.01ml Soln (100units/ml) SC SCH ×4 (06:25→21:13)
--- NOTE | 2018-06-18 07:00 | NUR ---
closing note patient resting in bed with oxygen on at 2L via Nc , even and unlabored respirations. no s/s of distress. Endorsed care to day shift Rn.
[2018-06-18 07:06] LABS: Basophils # (auto) 0 uL; Basophils % (auto) 0.5 % (0.0-2.0); Eosinophils # (auto) 0.1 uL; Eosinophils % (auto) 1.2 % (0.0-7.0); Hematocrit 35.9 % (36.0-46.0); Hemoglobin 11.7 g/dL (12.2-16.2); Lymphocytes # (auto) 1.7 uL; Lymphocytes % (auto) 25.6 % (10.0-50.0); Mean Corpuscular Hemoglobin 31.5 pg (28.0-32.0); Mean Corpuscular Hgb Conc. 32.7 g/dL (32.0-36.0); Mean Corpuscular Volume 96.3 fL (80.0-100.0); Monocytes # (auto) 0.5 uL; Monocytes % (auto) 6.6 % (0.0-12.0); Neutrophils # (auto) 4.5 uL; Neutrophils % (auto) 66.1 % (37.0-80.0); Platelet Count (auto) 229 10^3/uL (140-450); Red Blood Cells 3.73 10^6/uL (4.0-5.20); Red Cell Distribution Width 13.5 % (11.8-14.3); White Blood Cell 6.8 10^3/uL (4.4-10.8)
[2018-06-18 07:11] LABS: Potassium 4.4 mmol/L (3.5-5.1)
[2018-06-18 07:21] LABS: BUN/Creatinine Ratio 14.6; Calcium 8.9 mg/dL (8.5-10.1)
--- NOTE | 2018-06-18 08:00 | NUR ---
OPENING NOTE ASSUMED PT CARE FROM NOC SHIFT. PT WAS LYING QUIETLY IN ROOM. NO S/S OF SOB OF DISTRESS NOTED. DISCUSSED POC WITH PT. SAFETY MEASURES MAINTAINED WITH SIDE RAILS UP. WILL CONTINUE TO MONITOR Q1HR AND PRN.
[2018-06-18 08:39] VITALS: BP 141/74
[2018-06-18] MEDS: DOCUSATE SOD 100 MG CAP PO SCH ×2 (09:26→20:58)
[2018-06-18] MEDS: RANOLAZINE ER 500 MG TAB PO SCH ×2 (09:26→20:59)
[2018-06-18] MEDS: FAMOTIDINE 20 MG TAB PO SCH ×2 (09:26→20:59)
[2018-06-18] MEDS: CLOPIDOGREL BISULFATE 75 MG TAB PO SCH (09:27)
[2018-06-18] MEDS: ISOSORBIDE MONONITRATE 60 MG TAB PO SCH (09:28)
[2018-06-18] MEDS ORDERED: ISOSORBIDE MONONITRATE 60 MG TAB PO SCH (10:00)
[2018-06-18 11:45] VITALS: BP 111/70
[2018-06-18] MEDS: ONDANSETRON HCL 4 MG/2 ML VIAL IV PRN ×2 (14:16→21:07)
[2018-06-18 16:17] VITALS: BP 105/57
--- NOTE | 2018-06-18 18:46 | NUR ---
END OF SHIFT PATIENT RESTING IN BED. NO S/S OF DISTRESS. INSTRUCTED PATIENT TO CALL PRN. BED IN LOWEST LOCKED POSITION, CALL LIGHT WITHIN REACH. ENDORSED CARE TO BRITTANY MUNOZ.
--- NOTE | 2018-06-18 19:45 | NUR ---
Opening Shift Note Assumed care of patient, awake and alert, oriented x 4. On oxygen at 2L via NC with even and unlabored respirations. No S/S of distress/SOB.Patient ambulates with steady gait and turns in bed independently. Bed low locked position with side rails up x 2 and call light within reach. Instructed on POC for LHC tomorrow and NPO after midnight, patient verbalized understanding. Instructed to call for assist PRN, will continue to monitor for changes Q1hr and PRN
[2018-06-18 22:00] VITALS: BP 119/67
--- NOTE | 2018-06-18 22:15 | NUR ---
IV insertion IV access obtained, via clean sterile technique by inserting 20 gauge catheter at right hand after 2 attempt(s). IV secured properly. No trauma to site. Patient tolerated well. NOTE:
--- NOTE | 2018-06-18 22:20 | NUR ---
Adelaida Aleman NP RE: sleeping pill patient takes Ambien at home, patient requesting sleeping pill. awaiting call back. will continue car
--- NOTE | 2018-06-18 22:35 | NUR ---
Received call back from MIKE Aleman updated on patient status, new order received for Ambien 5mg PO once. Read back and verified. Will continue care.
[2018-06-18] MEDS ORDERED: ZOLPIDEM TARTRATE 5 MG TAB PO ONE (22:45)
[2018-06-19] MEDS: MORPHINE SULF INJ 2 MG/ML SYRINGE 1ML IV PRN ×4 (04:17→20:09)
[2018-06-19] MEDS: ONDANSETRON HCL 4 MG/2 ML VIAL IV PRN ×3 (04:18→17:01)
[2018-06-19 04:49] VITALS: BP 133/75
[2018-06-19] MEDS: IPRATROPIUM BROM 0.5 MG/2.5ML INH SOL NEB PRN ×3 (05:36→19:34)
[2018-06-19] MEDS: ALBUTEROL SULF 2.5 MG/0.5ML(0.5%) NEB SOLN NEB PRN ×3 (05:36→19:34)
[2018-06-19] MEDS: HYDROcodone-ACET 5/325MG TAB PO PRN ×2 (05:48→18:32)
[2018-06-19] MEDS: GABAPENTIN 400 MG CAP PO SCH ×4 (05:51→22:11)
[2018-06-19] MEDS: ACCU-CHEK COMFORT CURVE STRIP VI SCH ×4 (06:30→22:15)
[2018-06-19] MEDS: InsuLIN REG 1unit/0.01ml Soln (100units/ml) SC SCH ×4 (06:31→22:16)
[2018-06-19 06:57] LABS: INR 0.93 (0.9-1.15); Partial Thromboplastin Time 23.6 sec (23.78-33.04)
--- NOTE | 2018-06-19 07:00 | NUR ---
closing note patient resting in bed with oxygen on at 2L via NC , even and unlabored respirations. no s/s of distress. patient remains NPO. CHG wipes done. Endorsed care to day shift RN.
--- NOTE | 2018-06-19 07:10 | NUR ---
Opening Shift Note Assumed care of patient, awake, alert, and oriented x4. Patient has no complaints of pain at this time. Patient has IV in left upper arm 20g saline locked and flushing well, patient tolerating well. Patient has IV in right hand 20g saline locked and flushing well, patient tolerating well. Patient is on 2L NC with no S/S of distress/SOB. Instructed on POC and to call for assist PRN, will continue to monitor for changes Q1hr and PRN. Bed in lowest locked position, call light within reach.
--- NOTE | 2018-06-19 07:15 | NUR ---
OFF UNIT PATIENT TAKEN TO LIBRARY HELPER VIA BED. NO S/S OF DISTRESS NOTED AT TIME OF DEPARTURE.
[2018-06-19 08:00] VITALS: BP 129/79
[2018-06-19] MEDS ORDERED: IOHEXOL 350 MG/ML 100ML IJ ONE ×2 (08:00→09:34)
[2018-06-19] MEDS ORDERED: LIDOCAINE 2%HCL (LOCAL ANESTH.) INJ 20ML MDV ONE (08:00)
[2018-06-19] MEDS ORDERED: NITROGLYCERIN 5MG/ML 10ML VIAL IV ONE (08:45)
[2018-06-19] MEDS ORDERED: MIDAZOLAM HCL 1MG/1ML-2 ML VIAL ONE (08:55)
[2018-06-19] MEDS ORDERED: SODIUM CHL 0.9% 0 ML ONE (08:55)
[2018-06-19] MEDS ORDERED: ANGIOMAX 250 MG VIAL IV ONE (08:55)
[2018-06-19] MEDS ORDERED: fentaNYL CITRATE 100 MCG/2 ML VL ONE (08:55)
[2018-06-19 09:00] VITALS: BP 129/79
[2018-06-19] MEDS: RANOLAZINE ER 500 MG TAB PO SCH ×2 (10:00→22:11)
[2018-06-19] MEDS: DOCUSATE SOD 100 MG CAP PO SCH ×2 (10:00→22:10)
[2018-06-19] MEDS: CLOPIDOGREL BISULFATE 75 MG TAB PO SCH ×2 (10:00→11:27)
[2018-06-19] MEDS: FAMOTIDINE 20 MG TAB PO SCH ×2 (10:00→22:10)
[2018-06-19] MEDS: ISOSORBIDE MONONITRATE 60 MG TAB PO SCH ×2 (10:00→18:51)
[2018-06-19] MEDS ORDERED: ASPirin 81 mg TAB PO ONE (10:45)
--- NOTE | 2018-06-19 11:20 | NUR ---
ON UNIT PATIENT TRANSFERRED BACK TO UNIT FROM PRIVATE TUTOR. NO S/S OF DISTRESS NOTED AT TIME OF ARRIVAL. INCISION SITE TO RIGHT GROIN CDI, NO S/S OF BLEEDING. PULSES PRESENT TO RIGHT FOOT. WILL CONTINUE TO MONITOR.
--- NOTE | 2018-06-19 12:27 | NUR ---
AMBIEN PATIENT REQUESTING AMBIEN FOR NIGHT. PER DR. Mervat MILLER, PATIENT TO GET AMBIEN 10MG PO QHSPRN. ORDERS READ BACK AND VERIFIED.
[2018-06-19] MEDS ORDERED: ZOLPIDEM TARTRATE 5 MG TAB PO PRN ×2 (12:30→22:00)
[2018-06-19 13:02] VITALS: BP 163/81
[2018-06-19] MEDS: diphenhdrAMINE HCL 25 MG CAP PO PRN ×2 (13:58→20:10)
[2018-06-19 16:43] VITALS: BP 118/59
--- NOTE | 2018-06-19 18:41 | NUR ---
CHEST PAIN PATIENT COMPLAINING OF CHEST PAIN AND CRYING. MORPHINE GIVEN AT 1700 WITH NO RELIEF AND NORCO GIVEN AT 1832 BUT PATIENT IS REQUESTING A NITRO PATCH. PER JACKIE DURAN NP, PATIENT TO GET MORPHINE CHANGED FROM 1MG Q4H PRN TO 2MG Q3H PRN. ORDERS READ BACK AND VERIFIED.
--- NOTE | 2018-06-19 20:00 | NUR ---
Opening Shift Note Assumed care of patient, sitting in bed,calm, clear speech, awake and alert, oriented x 4. On oxygen at 2L via NC with even and unlabored respirations. No S/S of distress/SOB. Patient ambulates with steady gait and turns in bed independently. Patient is s/p C with dressing to right groin clean, dry, and intact, soft upon palpation, no s/s of hematoma or bleeding. Bilateral pedal pulses +3, even and regular with positive tissue perfusions. Bed low locked position with side rails up x 2 and call light within reach. Instructed on POC and to call for assist PRN, will continue to monitor for changes Q1hr and PRN
[2018-06-19 21:40] VITALS: BP 130/71
[2018-06-20] MEDS: IPRATROPIUM BROM 0.5 MG/2.5ML INH SOL NEB PRN ×2 (04:14→08:50)
[2018-06-20] MEDS: ALBUTEROL SULF 2.5 MG/0.5ML(0.5%) NEB SOLN NEB PRN ×2 (04:14→08:50)
[2018-06-20 05:07] VITALS: BP 95/56
[2018-06-20] MEDS: diphenhdrAMINE HCL 25 MG CAP PO PRN (06:27)
[2018-06-20] MEDS: GABAPENTIN 400 MG CAP PO SCH ×2 (06:27→11:49)
[2018-06-20] MEDS: ONDANSETRON HCL 4 MG/2 ML VIAL IV PRN (06:28)
[2018-06-20] MEDS: MORPHINE SULF INJ 2 MG/ML SYRINGE 1ML IV PRN ×2 (06:41→10:18)
[2018-06-20] MEDS: ACCU-CHEK COMFORT CURVE STRIP VI SCH ×2 (06:42→11:50)
[2018-06-20] MEDS: InsuLIN REG 1unit/0.01ml Soln (100units/ml) SC SCH ×2 (06:42→11:30)
--- NOTE | 2018-06-20 07:01 | NUR ---
closing note patient resting in bed with oxygen on at 2L via NC , even and unlabored respirations. no s/s of distress. Endorsed care to day shift RN.
--- NOTE | 2018-06-20 07:55 | NUR ---
Opening Shift Note Assumed care of patient, awake, alert, and oriented x4. Patient has no complaints of pain at this time. Patient has IV in right hand 20g saline locked and flushing well, patient tolerating well. Patient is on 2L NC with no S/S of distress/SOB. Instructed on POC and to call for assist PRN, will continue to monitor for changes Q1hr and PRN. Bed in lowest locked position, call light within reach.
--- NOTE | 2018-06-20 09:30 | NUR ---
AT BEDSIDE DR. Mervat MILLER AT BEDSIDE DISCUSSING POC WITH PATIENT.
[2018-06-20] MEDS ORDERED: ASPirin 81 mg TAB PO SCH (10:00)
[2018-06-20] MEDS: DOCUSATE SOD 100 MG CAP PO SCH (10:13)
[2018-06-20] MEDS: FAMOTIDINE 20 MG TAB PO SCH (10:14)
[2018-06-20] MEDS: CLOPIDOGREL BISULFATE 75 MG TAB PO SCH (10:14)
[2018-06-20] MEDS: RANOLAZINE ER 500 MG TAB PO SCH (10:15)
[2018-06-20] MEDS: ISOSORBIDE MONONITRATE 60 MG TAB PO SCH (10:16)
[2018-06-20 10:25] VITALS: BP 108/58
--- NOTE | 2018-06-20 12:13 | NUR ---
DISCHARGE Discharge instructions given as ordered. Encourage to follow up with PMD as instructed. All questions and concerns addressed. Patient verbalized understanding. Medication reconciliation form completed and copy given to patient. IV removed with catheter intact, pressure dressing applied. Telemetry unit returned to [facility]. Patient taken to vehicle via wheelchair with all personal belongings, accompanied by staff and family member. No distress noted at time of departure.
== END 2018-06-20 12:10 | disposition home or self-care (01) | DRG 287 ==
LOC: ER 11:13 → TELE 13:18 → TELE-CENTR 15:00
PROVIDERS: ADMIT Nurse Practitioner Acute Care; ATTEND Family Medicine
PROC: 4A023N7 Measurement of Cardiac Sampling and Pressure, Left Heart, Percutaneous Approach (ICD-10-PCS; principal; 2018-06-19)
PROC: B2111ZZ Fluoroscopy of Multiple Coronary Arteries using Low Osmolar Contrast (ICD-10-PCS; 2018-06-19)
PROC: B2151ZZ Fluoroscopy of Left Heart using Low Osmolar Contrast (ICD-10-PCS; 2018-06-19)
PROC: B2181ZZ Fluoroscopy of Left Internal Mammary Bypass Graft using Low Osmolar Contrast (ICD-10-PCS; 2018-06-19)
PROC: B2131ZZ Fluoroscopy of Multiple Coronary Artery Bypass Grafts using Low Osmolar Contrast (ICD-10-PCS; 2018-06-19)
DX: T82.855A Stenosis of coronary artery stent, initial encounter (principal); I25.110 Atherosclerotic heart disease of native coronary artery with unstable angina pectoris; I24.9 Acute ischemic heart disease, unspecified; I13.0 Hypertensive heart and chronic kidney disease with heart failure and stage 1 through stage 4 chronic kidney disease, or unspecified chronic kidney disease; Y84.0 Cardiac catheterization as the cause of abnormal reaction of the patient, or of later complication, without mention of misadventure at the time of the procedure; N18.3 Chronic kidney disease, stage 3 (moderate); E11.40 Type 2 diabetes mellitus with diabetic neuropathy, unspecified; E78.5 Hyperlipidemia, unspecified; I50.9 Heart failure, unspecified; K21.9 Gastro-esophageal reflux disease without esophagitis; J43.9 Emphysema, unspecified; E11.22 Type 2 diabetes mellitus with diabetic chronic kidney disease; I25.2 Old myocardial infarction; Z95.1 Presence of aortocoronary bypass graft; Z90.710 Acquired absence of both cervix and uterus; Z90.49 Acquired absence of other specified parts of digestive tract; Z95.5 Presence of coronary angioplasty implant and graft; Z99.81 Dependence on supplemental oxygen; Z79.899 Other long term (current) drug therapy; Z79.02 Long term (current) use of antithrombotics/antiplatelets; Z88.6 Allergy status to analgesic agent; Z86.73 Personal history of transient ischemic attack (TIA), and cerebral infarction without residual deficits; Z80.3 Family history of malignant neoplasm of breast; Z82.3 Family history of stroke; Z82.49 Family history of ischemic heart disease and other diseases of the circulatory system; Z83.3 Family history of diabetes mellitus; Y92.89 Other specified places as the place of occurrence of the external cause
CPT/HCPCS: 36415; 71046; 80048; 80053; 80061; 82962; 83036; 83735; 84484; 85025; 85610; 85730; 86850; 86900; 86901; 93005; 93459; 93886; 93926; 94640; 94761; 96374; 96375; 99152; A6257; G0378; J1815; J2250; J2405; J3490

== ENCOUNTER 2018-07-07 14:26 | Emergency (ER) | payer MEDICARE, MEDICAID ==
[~2018-07-07] VITALS: Ht 157.5 cm; Wt 70.3 kg
[~2018-07-07 14:26] MED LIST changes: +ZOLP-158 PO; -ZOLP10TA PO
[2018-07-07 14:55] VITALS: BP 158/68
== END 2018-07-07 16:50 | disposition left against medical advice (07) ==
LOC: ER 14:26
DX: S09.90XA Unspecified injury of head, initial encounter (principal); Z53.29 Procedure and treatment not carried out because of patient's decision for other reasons; W19.XXXA Unspecified fall, initial encounter; Y93.89 Activity, other specified; Y92.89 Other specified places as the place of occurrence of the external cause; Y99.8 Other external cause status
CPT/HCPCS: 70450; 72125

== ENCOUNTER 2018-07-09 06:55 | Inpatient (IN) | payer MEDICARE, MEDICAID | END 2018-07-12 21:00 | LOC: ER 06:55 → TELE 11:36 → TELE-EAST 13:57 | DX: I63.9 Cerebral infarction, unspecified (principal); I50.32 Chronic diastolic (congestive) heart failure; I13.0 Hypertensive heart and chronic kidney disease with heart failure and stage 1 through stage 4 chronic kidney disease, or unspecified chronic kidney disease; E44.1 Mild protein-calorie malnutrition; N18.3 Chronic kidney disease, stage 3 (moderate); J45.909 Unspecified asthma, uncomplicated; E11.22 Type 2 diabetes mellitus with diabetic chronic kidney disease ==

== ENCOUNTER → 2018-08-27 | Outpatient (CLI) | payer MEDICARE, MEDICAID ==
[2018-08-27 16:18] LABS: Basophils # (auto) 0 uL; Basophils % (auto) 0.5 % (0.0-2.0); Eosinophils # (auto) 0.1 uL; Eosinophils % (auto) 1.2 % (0.0-7.0); Hematocrit 40.8 % (36.0-46.0); Hemoglobin 13.5 g/dL (12.2-16.2); Lymphocytes # (auto) 2.2 uL; Lymphocytes % (auto) 25.3 % (10.0-50.0); Mean Corpuscular Hemoglobin 31.2 pg (28.0-32.0); Mean Corpuscular Hgb Conc. 33.1 g/dL (32.0-36.0); Mean Corpuscular Volume 94.3 fL (80.0-100.0); Monocytes # (auto) 0.7 uL; Monocytes % (auto) 7.7 % (0.0-12.0); Neutrophils # (auto) 5.7 uL; Neutrophils % (auto) 65.3 % (37.0-80.0); Nucleated Red Blood Cells % 0.2 %; Platelet Count (auto) 262 10^3/uL (140-450); Red Blood Cells 4.32 10^6/uL (4.0-5.20); Red Cell Distribution Width 12.7 % (11.8-14.3); White Blood Cell 8.7 10^3/uL (4.4-10.8)
[2018-08-27 17:08] LABS: Albumin 3.9 g/dL (3.4-5.0); Calcium 9.4 mg/dL (8.5-10.1); Potassium 4.5 mmol/L (3.5-5.1)
[2018-08-27 17:13] LABS: % Iron Saturation 22.5 % (15-50); BUN/Creatinine Ratio 15.5; Bilirubin, Total 0.3 mg/dL (0.2-1.0)
== END | disposition home or self-care (01) ==
LOC: LAB 15:26
PROVIDERS: ATTEND Internal Medicine
DX: D64.9 Anemia, unspecified (principal)
CPT/HCPCS: 36415; 80053; 82728; 83540; 83550; 83615; 85025

== ENCOUNTER → 2018-10-24 | Outpatient (CLI) | payer MEDICARE, MEDICAID ==
[~2018-10-24] MED LIST changes: -LEVO100C PO; +LEVO100C2 PO; +LOSA-39 PO; -LOSA-49 PO; -NITR0.4D10 TD; +NITR0.4D3 TD
== END | disposition home or self-care (01) ==
LOC: LAB 14:57
PROVIDERS: ATTEND Urology
DX: N31.9 Neuromuscular dysfunction of bladder, unspecified (principal); I25.10 Atherosclerotic heart disease of native coronary artery without angina pectoris; I10 Essential (primary) hypertension; E11.9 Type 2 diabetes mellitus without complications; I25.2 Old myocardial infarction; Z79.899 Other long term (current) drug therapy
CPT/HCPCS: 87086

== ENCOUNTER 2018-12-03 23:17 | Inpatient (IN) | payer MEDICARE, MEDICAID ==
[~2018-12-03] VITALS: Ht 157.5 cm; Wt 77.2 kg
[2018-12-03 23:59] LABS: Basophils # (auto) 0 uL; Basophils % (auto) 0.6 % (0.0-2.0); Eosinophils # (auto) 0.1 uL; Eosinophils % (auto) 1.1 % (0.0-7.0); Hematocrit 36.9 % (36.0-46.0); Hemoglobin 12.1 g/dL (12.2-16.2); Lymphocytes # (auto) 1.6 uL; Lymphocytes % (auto) 24.5 % (10.0-50.0); Mean Corpuscular Hemoglobin 30.8 pg (28.0-32.0); Mean Corpuscular Hgb Conc. 32.8 g/dL (32.0-36.0); Mean Corpuscular Volume 93.9 fL (80.0-100.0); Monocytes # (auto) 0.6 uL; Neutrophils # (auto) 4.2 uL; Neutrophils % (auto) 64.8 % (37.0-80.0); Platelet Count (auto) 257 10^3/uL (140-450); Red Blood Cells 3.93 10^6/uL (4.0-5.20); Red Cell Distribution Width 13.9 % (11.8-14.3); White Blood Cell 6.4 10^3/uL (4.4-10.8)
[2018-12-04 00:12] LABS: Albumin 3.6 g/dL (3.4-5.0); Anion Gap 7 (5-15); Blood Urea Nitrogen 14 mg/dL (7-18); Calcium 8.5 mg/dL (8.5-10.1); Carbon Dioxide 25 mmol/L (21-32); Chloride 106 mmol/L (98-107); Glucose 170 mg/dL (74-106); Magnesium 1.9 mg/dL (1.6-2.6); Potassium 3.7 mmol/L (3.5-5.1); Sodium 138 mmol/L (136-145)
[2018-12-04 00:13] LABS: INR 0.95 (0.9-1.15)
[2018-12-04 00:16] LABS: Alanine Aminotransferase 24 U/L (13-56); Aspartate Aminotransferase 24 U/L (15-37); BUN/Creatinine Ratio 13.3; GFR African American 68 mL/min; GFR Non-African American 56 mL/min
[2018-12-04 00:19] LABS: Alkaline Phosphatase 96 U/L (45-117); Bilirubin, Total 0.3 mg/dL (0.2-1.0); Total Protein 7.2 g/dL (6.4-8.2)
[2018-12-04] MEDS ORDERED: SODIUM CHLORIDE 0.9% 1,000 ML IV ONE (08:09)
[2018-12-04] MEDS ORDERED: ONDANSETRON HCL 4 MG/2 ML VIAL IV ONE (08:15)
[2018-12-04] MEDS: MORPHINE SULFATE 4 MG/ML SYR/VIAL IV PRN ×3 (08:45→17:25)
[2018-12-04 10:12] LABS: Urine Bacteria NONE SEEN /hpf (None Seen); Urine Blood Negative /uL (Negative); Urine Mucus FEW (None Seen); Urine Specific Gravity 1.007 (1.001-1.035); Urine WBC 4 /hpf (0 - 5)
[2018-12-04] MEDS ORDERED: LEVOTHYROXINE SODIUM 25 MCG TAB PO ONE (13:15)
[2018-12-04] MEDS ORDERED: MORPHINE SULF INJ 2 MG/ML SYRINGE 1ML IV PRN (13:30)
[2018-12-04] MEDS ORDERED: DEXTROSE (50%) 50ML SYRG IV PRN (13:30)
[2018-12-04] MEDS ORDERED: HYDROmorphone HCL 2 MG/ML VL IV PRN (13:30)
[2018-12-04] MEDS ORDERED: OXYCODONE W/ ACETAMINOPHEN 5/325MG TABLET PO PRN (13:30)
[2018-12-04] MEDS ORDERED: NITROGLYCERIN 0.4 MG SL TAB SL PRN (13:30)
[2018-12-04] MEDS ORDERED: PANTOPRAZOLE 40 MG TAB PO ONE (14:30)
[2018-12-04] MEDS ORDERED: GABAPENTIN 300 MG CAP PO ONE (14:30)
[2018-12-04] MEDS ORDERED: ISOSORBIDE MONONITRATE ER 60 MG TAB PO ONE (14:30)
[2018-12-04] MEDS ORDERED: CLOPIDOGREL BISULFATE 75 MG TAB PO ONE (14:30)
[2018-12-04] MEDS ORDERED: LEVOTHYROXINE SODIUM 100 MCG TAB PO ONE (14:30)
[2018-12-04] MEDS: CYCLOBENZAPRINE HCL 10 MG TAB PO SCH ×2 (14:37→22:00)
[2018-12-04 15:32] VITALS: BP 133/81
--- NOTE | 2018-12-04 15:32 | NUR ---
Telemetry admit from ER FRANK DIAZ admitted to Telemetry unit after SBAR received. Patient oriented to Azul Engle, primary RN, unit, room, bed, and unit policies regarding patient care and visiting hours. Patient now on continuous telemetry monitoring, tele box #28. Patient placed on bedside oxygen. Safety precautions in place. Bed set to lowest position/locked, bedside rails up x2, call light within reach. Instructed patient to call for assistance. Patient verbalized understanding. Will continue to monitor q1hr and PRN.
[2018-12-04 17:00] VITALS: BP 133/81
[2018-12-04] MEDS: ACCU-CHEK COMFORT CURVE STRIP VI SCH ×2 (17:00→21:34)
[2018-12-04] MEDS: InsuLIN REG 1unit/0.01ml Soln (100units/ml) SC SCH ×2 (17:00→21:57)
--- NOTE | 2018-12-04 19:24 | NUR ---
Opening Shift Note Received report from day shift nurse, Azul. Patient is awake, alert, and orientated x 4 with No S/S of distress/SOB or pain. Bed is in lowest position with side rails up x 2. Bed brakes are locked and call light is with in reach. HOB is 30 degrees. Instructed on POC and to call for assistance PRN, will continue to monitor for changes Q1hr and PRN.
[2018-12-04 19:33] VITALS: BP 133/81
[2018-12-04 20:00] VITALS: BP 139/66
--- NOTE | 2018-12-04 20:51 | NUR ---
ROUNDS PATIENT FOUND ASLEEP. UPON AWAKING BY NAME, PATIENT SEEMED SLEEPY AND FATIGUED. NOTED PATIENT SLEEPING RIGHT AFTER CONVERSING WITH PATIENT. RR 18 AND ALL OTHER VITALS WNL. Addendum: 12/05/18 at 0150 by JAY NGUYEN RN RN PATIENT ALERT AND ORIENTATED X 4
[2018-12-04] MEDS: ALBUTEROL SULF 2.5 MG/0.5ML(0.5%) NEB SOLN NEB PRN (20:53)
[2018-12-04] MEDS: IPRATROPIUM BROM 0.5 MG/2.5ML INH SOL NEB PRN (20:53)
[2018-12-04] MEDS: RANOLAZINE ER 500 MG TAB PO SCH (21:34)
[2018-12-04 22:00] VITALS: BP 103/62
[2018-12-04] MEDS: traZODone HCL 50 MG TAB PO SCH (22:00)
[2018-12-04] MEDS: ZOLPIDEM TARTRATE 5 MG TAB PO SCH (22:00)
--- NOTE | 2018-12-05 03:01 | NUR ---
ROUNDS PT A/O X 4. NO SIGNS OF SLEEPINESS FULL EYE CONTACT. DISCUSSED WITH PATIENT REGARDING EARLIER ASSESSMENT.
[2018-12-05] MEDS: MORPHINE SULFATE 4 MG/ML SYR/VIAL IV PRN ×4 (03:14→20:09)
[2018-12-05 05:00] VITALS: BP 102/56
[2018-12-05] MEDS: CYCLOBENZAPRINE HCL 10 MG TAB PO SCH ×3 (05:38→20:08)
[2018-12-05] MEDS: ACCU-CHEK COMFORT CURVE STRIP VI SCH ×4 (06:28→21:37)
[2018-12-05] MEDS: InsuLIN REG 1unit/0.01ml Soln (100units/ml) SC SCH ×4 (06:29→21:38)
[2018-12-05 06:52] LABS: Basophils # (auto) 0 uL; Basophils % (auto) 0.7 % (0.0-2.0); Eosinophils # (auto) 0.1 uL; Eosinophils % (auto) 1.9 % (0.0-7.0); Hematocrit 33.4 % (36.0-46.0); Hemoglobin 11.1 g/dL (12.2-16.2); Lymphocytes # (auto) 1.9 uL; Lymphocytes % (auto) 34.2 % (10.0-50.0); Mean Corpuscular Hemoglobin 31.7 pg (28.0-32.0); Mean Corpuscular Hgb Conc. 33.2 g/dL (32.0-36.0); Mean Corpuscular Volume 95.4 fL (80.0-100.0); Monocytes # (auto) 0.6 uL; Monocytes % (auto) 10.3 % (0.0-12.0); Neutrophils % (auto) 52.9 % (37.0-80.0); Nucleated Red Blood Cells % 0.1 %; Platelet Count (auto) 196 10^3/uL (140-450); Red Cell Distribution Width 14.2 % (11.8-14.3); White Blood Cell 5.6 10^3/uL (4.4-10.8)
[2018-12-05] MEDS ORDERED: LEVOTHYROXINE SODIUM 100 MCG TAB PO SCH (07:00)
[2018-12-05 07:03] LABS: Albumin 2.8 g/dL (3.4-5.0); Calcium 8.3 mg/dL (8.5-10.1); Potassium 4.3 mmol/L (3.5-5.1)
[2018-12-05 07:06] LABS: BUN/Creatinine Ratio 16.9; Bilirubin, Total 0.2 mg/dL (0.2-1.0); Total Protein 5.8 g/dL (6.4-8.2)
--- NOTE | 2018-12-05 07:08 | NUR ---
CLOSING NOTES ENDORSED CARE TO DAY SHIFT NURSESAUL.
--- NOTE | 2018-12-05 07:30 | NUR ---
Opening Shift Note Assumed care of patient, awake and alert. No S/S of distress/SOB or pain. Instructed on POC and to call for assist PRN, will continue to monitor for changes Q1hr and PRN.
[2018-12-05 09:00] VITALS: BP 124/70
[2018-12-05] MEDS ORDERED: GABAPENTIN 300 MG CAP PO SCH (10:00)
--- NOTE | 2018-12-05 10:00 | NUR ---
Dr. Guzman in to see patient as hospitalist.
[2018-12-05] MEDS: RANOLAZINE ER 500 MG TAB PO SCH ×2 (10:20→20:08)
[2018-12-05] MEDS: PANTOPRAZOLE 40 MG TAB PO SCH (10:21)
[2018-12-05] MEDS: CLOPIDOGREL BISULFATE 75 MG TAB PO SCH (10:21)
[2018-12-05] MEDS: LOSARTAN POTASSIUM 50 MG TAB PO SCH (10:21)
[2018-12-05] MEDS: PRAVASTATIN SODIUM 20 MG TAB PO SCH (10:22)
[2018-12-05] MEDS: ISOSORBIDE MONONITRATE ER 60 MG TAB PO SCH (10:24)
[2018-12-05] MEDS: ALBUTEROL SULF 2.5 MG/0.5ML(0.5%) NEB SOLN NEB PRN ×2 (10:39→18:53)
[2018-12-05] MEDS: IPRATROPIUM BROM 0.5 MG/2.5ML INH SOL NEB PRN ×2 (10:39→18:53)
[2018-12-05 13:00] VITALS: BP 133/64
[2018-12-05] MEDS: GABAPENTIN 400 MG CAP PO SCH (14:24)
[2018-12-05 17:56] VITALS: BP 127/53
--- NOTE | 2018-12-05 18:53 | NUR ---
RT NOTE PT WAS SEEN BY RT FOR PRN HHN TX. PT TOLERATES WELL VIA MASK. NO ADVERSE REACTION NOTED. CONT ORDERED. POX 97% Addendum: 12/05/18 at 1857 by Leigh Sandra RT Amended: Links added.
--- NOTE | 2018-12-05 18:53 | NUR ---
RT NOTE PT WAS SEEN BY RT FOR PRN HHN TX. PT TOLERATES WELL VIA MASK. NO ADVERSE REACTION NOTED. CONT ORDERED. POX 9
[2018-12-05] MEDS: ZOLPIDEM TARTRATE 5 MG TAB PO SCH (20:08)
[2018-12-05] MEDS: traZODone HCL 50 MG TAB PO SCH (20:08)
[2018-12-05 21:30] VITALS: BP 95/49
[2018-12-06 05:00] VITALS: BP 102/61
[2018-12-06] MEDS: MORPHINE SULFATE 4 MG/ML SYR/VIAL IV PRN ×3 (05:22→14:26)
[2018-12-06] MEDS: CYCLOBENZAPRINE HCL 10 MG TAB PO SCH ×2 (05:22→12:52)
[2018-12-06] MEDS: InsuLIN REG 1unit/0.01ml Soln (100units/ml) SC SCH ×3 (06:41→17:00)
[2018-12-06] MEDS: ACCU-CHEK COMFORT CURVE STRIP VI SCH ×3 (06:41→17:00)
[2018-12-06] MEDS ORDERED: LEVOTHYROXINE SODIUM 50 MCG TAB PO SCH (07:00)
[2018-12-06] MEDS: IPRATROPIUM BROM 0.5 MG/2.5ML INH SOL NEB PRN (07:12)
[2018-12-06] MEDS: ALBUTEROL SULF 2.5 MG/0.5ML(0.5%) NEB SOLN NEB PRN (07:12)
[2018-12-06 08:00] VITALS: BP 121/66
--- NOTE | 2018-12-06 08:00 | NUR ---
Opening Shift Note Patient is awake, alert, and orientated x 4 with No S/S of distress/SOB. Patient c/o pain at chest area that radiates to back. patient raates pain at 5/10. Bed is in lowest position with side rails up x 2. Bed brakes are locked and call light is with in reach. Instructed on POC and to call for assistance PRN, will continue to monitor for changes Q1hr and PRN. Addendum: 12/06/18 at 1305 by Elizabeth Wells RN wrong patient please disregard note.
[2018-12-06 09:00] VITALS: BP 121/66
[2018-12-06] MEDS: GABAPENTIN 400 MG CAP PO SCH (09:35)
[2018-12-06] MEDS: RANOLAZINE ER 500 MG TAB PO SCH (09:36)
[2018-12-06] MEDS: LOSARTAN POTASSIUM 50 MG TAB PO SCH (09:36)
[2018-12-06] MEDS: PANTOPRAZOLE 40 MG TAB PO SCH (09:36)
[2018-12-06] MEDS: CLOPIDOGREL BISULFATE 75 MG TAB PO SCH (09:36)
[2018-12-06] MEDS: ISOSORBIDE MONONITRATE ER 60 MG TAB PO SCH (09:36)
[2018-12-06] MEDS: PRAVASTATIN SODIUM 20 MG TAB PO SCH (09:37)
--- NOTE | 2018-12-06 12:07 | NUR ---
Nutrition Assessment Notes please see attached link for complete assessment Est. Needs ABW [id number] kcal (23-25 kcal/kgBW), 63-69 gms pro (1.0-1.1 gms/kgBW). Will continue to monitor pertinent labs and reassess nutrient need prn Addendum: 12/06/18 at [address] Amended: Links added.
[2018-12-06 13:00] VITALS: BP 95/55
--- NOTE | 2018-12-06 14:08 | NUR ---
assessment Patient is a 63 year old female who is alert and oriented. Patients cognitive abilities are intact. Prior to admission patient lived home with family and functioned with assistance. Per patient she has a rollator, cane, and 02 for home use. Patient is on service with [facility]. Patient will need a resumption order on discharge. Patients PCP is Dr Guzman. Patient feels safe returning home on discharge. I informed patient she has a right to speak to a social service coordinator regarding all care. I informed patient she has a right to participate in any and all discharge planning. Patient is aware of visiting hours on the hospital floor. I informed patient she has a right to privacy. Patient does not have a POA and advanced directive. I have offered patient information on POA and advanced directives. I informed the patient the advantages and benefits of having an Advanced Directive. Patient verbalized understanding and agreed to discharge plan. Addendum: 12/06/18 at 1410 by Leana JARVIS Amended: Links added.
--- NOTE | 2018-12-06 16:31 | NUR ---
D/C planning Per consult for [facility] for physical therapy and nebulizer. Information and choice letter was given to pt. Pt stated she has [facility] and would like to resume service with agency. Pt verbalize understanding. Contacted [facility] Ph:) Fax:) faxed medical records. Per Phuc from [facility] they will resume service within 48 hrs upon d/c day. Contacted [facility] Ph:) Fax:) faxed medical records. Per Cristal from [facility] order has been received and nebulizer will be deliver to bedside at 18:00. Addendum: 12/06/18 at 1636 by TIMA MEDEIROS Amended: Links added.
[2018-12-06 17:07] VITALS: BP 121/66
== END 2018-12-06 18:10 | disposition home health service (06) | DRG 311 ==
LOC: ER 23:20 → TELE-CENTR 23:21
PROVIDERS: ADMIT Nurse Practitioner Acute Care; ATTEND Internal Medicine
DX: I24.9 Acute ischemic heart disease, unspecified (principal); I13.0 Hypertensive heart and chronic kidney disease with heart failure and stage 1 through stage 4 chronic kidney disease, or unspecified chronic kidney disease; I69.351 Hemiplegia and hemiparesis following cerebral infarction affecting right dominant side; I25.110 Atherosclerotic heart disease of native coronary artery with unstable angina pectoris; N18.3 Chronic kidney disease, stage 3 (moderate); E11.22 Type 2 diabetes mellitus with diabetic chronic kidney disease; D64.9 Anemia, unspecified; E03.9 Hypothyroidism, unspecified; G89.29 Other chronic pain; J44.9 Chronic obstructive pulmonary disease, unspecified; I50.9 Heart failure, unspecified; E78.5 Hyperlipidemia, unspecified; K21.9 Gastro-esophageal reflux disease without esophagitis; Z79.02 Long term (current) use of antithrombotics/antiplatelets; Z79.891 Long term (current) use of opiate analgesic; Z79.84 Long term (current) use of oral hypoglycemic drugs; Z79.899 Other long term (current) drug therapy; Z80.3 Family history of malignant neoplasm of breast; Z82.3 Family history of stroke; Z82.49 Family history of ischemic heart disease and other diseases of the circulatory system; Z90.710 Acquired absence of both cervix and uterus; Z95.1 Presence of aortocoronary bypass graft; Z95.5 Presence of coronary angioplasty implant and graft; Z98.84 Bariatric surgery status; Z83.3 Family history of diabetes mellitus; Z88.6 Allergy status to analgesic agent; Z90.49 Acquired absence of other specified parts of digestive tract
CPT/HCPCS: 36415; 71046; 80053; 80061; 81001; 82962; 83036; 83735; 83880; 84439; 84443; 84484; 85025; 85610; 85730; 93005; 93306; 94640; 94761; 96361; 96374; G0378; J1815; J2405

== ENCOUNTER 2019-01-05 20:59 | Inpatient (IN) | payer MEDICARE, MEDICAID ==
[~2019-01-05] VITALS: Ht 157.5 cm; Wt 76.9 kg
[~2019-01-05 20:59] MED LIST changes: -CYA100I IM
[2019-01-05 22:12] LABS: Basophils # (auto) 0.1 uL; Basophils % (auto) 0.7 % (0.0-2.0); Eosinophils # (auto) 0.1 uL; Eosinophils % (auto) 1.1 % (0.0-7.0); Hematocrit 35.9 % (36.0-46.0); Hemoglobin 11.9 g/dL (12.2-16.2); Lymphocytes # (auto) 2.2 uL; Lymphocytes % (auto) 27.3 % (10.0-50.0); Mean Corpuscular Hemoglobin 30.9 pg (28.0-32.0); Mean Corpuscular Volume 93.6 fL (80.0-100.0); Monocytes # (auto) 0.6 uL; Monocytes % (auto) 7.5 % (0.0-12.0); Neutrophils % (auto) 63.4 % (37.0-80.0); Nucleated Red Blood Cells % 0.1 %; Platelet Count (auto) 251 10^3/uL (140-450); Red Blood Cells 3.84 10^6/uL (4.0-5.20); Red Cell Distribution Width 12.9 % (11.8-14.3); White Blood Cell 7.9 10^3/uL (4.4-10.8)
[2019-01-05 22:19] LABS: Albumin 3.2 g/dL (3.4-5.0); Anion Gap 7 (5-15); Blood Urea Nitrogen 18 mg/dL (7-18); Calcium 8.3 mg/dL (8.5-10.1); Carbon Dioxide 25 mmol/L (21-32); Chloride 105 mmol/L (98-107); Glucose 145 mg/dL (74-106); Potassium 4.1 mmol/L (3.5-5.1); Sodium 137 mmol/L (136-145)
[2019-01-05 22:21] LABS: Alanine Aminotransferase 25 U/L (13-56); Aspartate Aminotransferase 24 U/L (15-37); BUN/Creatinine Ratio 15.1; GFR African American 59 mL/min; GFR Non-African American 49 mL/min
[2019-01-05 22:26] LABS: Alkaline Phosphatase 123 U/L (45-117); Bilirubin, Total 0.4 mg/dL (0.2-1.0); Total Protein 6.7 g/dL (6.4-8.2)
[2019-01-05] MEDS ORDERED: MORPHINE SULFATE 4 MG/ML SYR/VIAL IV ONE (22:30)
[2019-01-05] MEDS ORDERED: ONDANSETRON HCL 4 MG/2 ML VIAL IV ONE (22:30)
[2019-01-05 22:31] LABS: Partial Thromboplastin Time 25.2 sec (23.64-32.05)
[2019-01-06] MEDS ORDERED: HYDROcodone-ACET 5/325MG TAB PO PRN (04:00)
[2019-01-06] MEDS ORDERED: ACETAMINOPHEN 325 MG TAB PO PRN (04:00)
[2019-01-06] MEDS ORDERED: MORPHINE SULF INJ 2 MG/ML SYRINGE 1ML IV PRN (04:00)
[2019-01-06] MEDS ORDERED: DOCUSATE SOD 100 MG CAP PO PRN (04:00)
[2019-01-06] MEDS ORDERED: NITROGLYCERIN 0.4 MG SL TAB SL PRN (04:00)
[2019-01-06] MEDS ORDERED: FUROSEMIDE 20 MG TAB PO PRN (04:15)
[2019-01-06] MEDS: SODIUM CHLORIDE 0.9% 1,000 ML IV SCH ×2 (05:07→20:38)
[2019-01-06] MEDS: MORPHINE SULFATE 4 MG/ML SYR/VIAL IV PRN ×3 (05:20→20:39)
[2019-01-06] MEDS: ONDANSETRON HCL 4 MG/2 ML VIAL IV PRN ×3 (05:20→20:39)
[2019-01-06] MEDS ORDERED: LEVOTHYROXINE SODIUM 100 MCG TAB PO SCH (07:00)
[2019-01-06] MEDS: CLOPIDOGREL BISULFATE 75 MG TAB PO SCH (09:54)
[2019-01-06] MEDS ORDERED: LEVOTHYROXINE SODIUM 100 MCG/5 ML INJ IV ONE (10:30)
[2019-01-06] MEDS: LORazepam 0.5 MG TAB PO PRN ×2 (13:37→21:35)
--- NOTE | 2019-01-06 14:19 | NUR ---
PATIENT ADMITTED FROM ER: BROUGHT UP VIA STRETCHER, ORIENTED TO TELE UNIT, THIS RN, ROOM 284 BED A. TELE BOX 72, HEART RATE 77 NSR. PATIENT A/OX4, ABLE TO AMBULATE WITH STANDBY ASSIST. NC 2L IN PLACE, RESPIRATIONS EVEN AND UNLABORED. CALL LIGHT PLACED WITHIN REACH. WILL CONTINUE TO MONITOR.
[2019-01-06 15:00] VITALS: BP 122/67
--- NOTE | 2019-01-06 15:14 | NUR ---
PATIENT MEDICATION LIST PUT INTO HARD CHART.
--- NOTE | 2019-01-06 18:55 | NUR ---
CLOSING SHIFT NOTE: PATIENT RESTING IN BED. IV PATENT AND RUNNING. RESPIRATIONS EVEN AND UNLABORED. CALL LIGHT WITHIN REACH, FAMILY AT BEDSIDE. WILL ENDORSE CARE TO NOC RN.
--- NOTE | 2019-01-06 19:24 | NUR ---
CARE ENDORSED TO CHRISTA SOTO.
--- NOTE | 2019-01-06 19:30 | NUR ---
RECEIVED PATIENT IN BED, AAOX4. NO DISTRESS NOTED. AFEBRILE. INTRODUCED MYSELF TO THE PATIENT. ORIENTATION DONE. MILD BLE WEAKNESS NOTED. COMPLAINED OF CHEST PAIN. WILL MEDICATE PATIENT. REQUESTED FOR A SLEEPING PILL. MARIANA DOLAN AND AWAITING CALL BACK. POCS DISCUSSED WITH PATIENT AND SHOWED UNDERSTANDING. BED KEPT ON LOWEST POSITION. SIDE RAILS UP. CALL LIGHT/TABLE IN REACH. KEPT COMFORTABLE.
[2019-01-06] MEDS ORDERED: ZOLPIDEM TARTRATE 5 MG TAB PO ONE ×5 (20:30→22:30)
[2019-01-06] MEDS: RANOLAZINE ER 500 MG TAB PO SCH (20:38)
--- NOTE | 2019-01-06 21:51 | NUR ---
BEEN CALLING PHARMACY MULTIPLE TIMES TO RELEASE AMBIEN, BUT MEDICINE IS STILL NOT IN THE PYXIS.
[2019-01-06 22:00] VITALS: BP 145/74
[2019-01-06] MEDS ORDERED: ATORVASTATIN 20 MG TAB PO SCH (22:00)
[2019-01-07 05:00] VITALS: BP 129/79
--- NOTE | 2019-01-07 06:30 | NUR ---
ON BED, ASLEEP. STABLE. NO DISTRESS NOTED. FOR MORE CARE AND MANAGEMENT.
[2019-01-07] MEDS: MORPHINE SULFATE 4 MG/ML SYR/VIAL IV PRN ×2 (06:49→11:47)
--- NOTE | 2019-01-07 08:30 | NUR ---
OPENING SHIFT NOTE: PATIENT ASLEEP RESTING IN BED, RESPIRATIONS EVEN AND UNLABORED. BED IN LOWEST LOCKED POSITION, CALL LIGHT WITHIN REACH, WILL CONTINUE TO MONITOR.
[2019-01-07 09:00] VITALS: BP 121/69
[2019-01-07] MEDS: RANOLAZINE ER 500 MG TAB PO SCH (09:31)
[2019-01-07] MEDS: CLOPIDOGREL BISULFATE 75 MG TAB PO SCH (09:31)
[2019-01-07] MEDS ORDERED: LEVOTHYROXINE SODIUM 100 MCG/5 ML INJ IV SCH (10:00)
[2019-01-07 13:00] VITALS: BP 139/70
[2019-01-07] MEDS: SODIUM CHLORIDE 0.9% 1,000 ML IV SCH (13:19)
--- NOTE | 2019-01-07 14:11 | NUR ---
PATIENT DISCHARGED HOME WITH ALL BELONGINGS. ALL EDUCATION MATERIALS GIVEN. TELE BOX RETURNED TO CARDIO UNIT, IV REMOVED CATHETER INTACT. TAKEN TO PRIVATE AUTO VIA WHEELCHAIR WITHOUT INCIDENCE.
== END 2019-01-07 14:04 | disposition home or self-care (01) | DRG 313 ==
LOC: EDBD 20:59 → ER 21:02 → TELE 21:03 → TELE-WESTW 01-06 14:20
PROVIDERS: ADMIT Hospitalist; ATTEND Internal Medicine
DX: R07.89 Other chest pain (principal); E03.8 Other specified hypothyroidism; Z95.1 Presence of aortocoronary bypass graft; Z99.81 Dependence on supplemental oxygen; Z88.6 Allergy status to analgesic agent; Z91.018 Allergy to other foods; D64.9 Anemia, unspecified; G89.29 Other chronic pain; M54.9 Dorsalgia, unspecified; Z79.84 Long term (current) use of oral hypoglycemic drugs; Z79.891 Long term (current) use of opiate analgesic; Z79.899 Other long term (current) drug therapy; Z80.3 Family history of malignant neoplasm of breast; Z82.3 Family history of stroke; Z83.3 Family history of diabetes mellitus; Z95.5 Presence of coronary angioplasty implant and graft; Z86.73 Personal history of transient ischemic attack (TIA), and cerebral infarction without residual deficits; I25.10 Atherosclerotic heart disease of native coronary artery without angina pectoris
CPT/HCPCS: 36415; 71045; 80053; 83880; 84439; 84443; 84484; 85025; 85610; 85730; 93005; 96374; 96375; 96376; G0378; J2405; J3490

== ENCOUNTER → 2019-02-17 | Outpatient (CLI) | payer MEDICARE, MEDICAID ==
[~2019-02-17] MED LIST changes: +IPRA0.00 IN; -IPRA1SOL3 IN
[2019-02-17 13:40] LABS: Basophils # (auto) 0.1 uL; Basophils % (auto) 0.6 % (0.0-2.0); Eosinophils # (auto) 0.1 uL; Eosinophils % (auto) 0.8 % (0.0-7.0); Hematocrit 37.2 % (36.0-46.0); Hemoglobin 12.4 g/dL (12.2-16.2); Lymphocytes # (auto) 1.5 uL; Lymphocytes % (auto) 18.3 % (10.0-50.0); Mean Corpuscular Hemoglobin 31.4 pg (28.0-32.0); Mean Corpuscular Hgb Conc. 33.4 g/dL (32.0-36.0); Monocytes # (auto) 0.6 uL; Monocytes % (auto) 7.3 % (0.0-12.0); Neutrophils # (auto) 5.9 uL; Platelet Count (auto) 264 10^3/uL (140-450); Red Blood Cells 3.95 10^6/uL (4.0-5.20); Red Cell Distribution Width 13.3 % (11.8-14.3); White Blood Cell 8.1 10^3/uL (4.4-10.8)
[2019-02-17 14:01] LABS: Albumin 3.7 g/dL (3.4-5.0); Calcium 8.9 mg/dL (8.5-10.1)
[2019-02-17 14:04] LABS: % Iron Saturation 31.2 % (15-50); BUN/Creatinine Ratio 16.1; Bilirubin, Total 0.3 mg/dL (0.2-1.0); Total Protein 7.6 g/dL (6.4-8.2)
[2019-02-17 14:11] LABS: Folate (Folic Acid) 17.04 ng/mL (5.38-24)
== END | disposition home or self-care (01) ==
LOC: LAB 13:19
PROVIDERS: ATTEND Internal Medicine Hematology & Oncology
DX: D64.9 Anemia, unspecified (principal)
CPT/HCPCS: 36415; 80053; 82607; 82746; 83540; 83550; 85025

== ENCOUNTER 2019-06-04 10:48 | Emergency (ER) | payer MEDICARE, MEDICAID ==
[~2019-06-04] VITALS: Ht 157.5 cm; Wt 70.3 kg
[2019-06-04] MEDS ORDERED: SODIUM CHLORIDE 0.9% 1,000 ML IV ONE (11:12)
[2019-06-04 11:47] LABS: Basophils # (auto) 0.1 10 ^3/uL (0-0.2); Basophils % (auto) 0.8 % (0.0-2.0); Eosinophils # (auto) 0.1 10 ^3/uL (0-0.8); Eosinophils % (auto) 0.9 % (0.0-7.0); Hematocrit 40.1 % (36.0-46.0); Lymphocytes # (auto) 1.8 10 ^3/uL (0.4-5.4); Lymphocytes % (auto) 21.9 % (10.0-50.0); Mean Corpuscular Hemoglobin 30.2 pg (28.0-32.0); Mean Corpuscular Hgb Conc. 32.4 g/dL (32.0-36.0); Mean Corpuscular Volume 93.3 fL (80.0-100.0); Monocytes # (auto) 0.6 10 ^3/uL (0-1.3); Monocytes % (auto) 7.1 % (0.0-12.0); Neutrophils # (auto) 5.5 10 ^3/uL (1.6-8.6); Neutrophils % (auto) 69.3 % (37.0-80.0); Platelet Count (auto) 266 10^3/uL (140-450); Red Cell Distribution Width 13.2 % (11.8-14.3)
[2019-06-04 11:58] LABS: Urine Bacteria FEW /hpf (None Seen); Urine Blood TRACE /uL (Negative); Urine Mucus FEW (None Seen); Urine Specific Gravity 1.016 (1.001-1.035); Urine WBC 99 /hpf (0 - 5); Urine WBC Clumps PRESENT /hpf (None Seen)
[2019-06-04] MEDS ORDERED: ONDANSETRON HCL 4 MG/2 ML VIAL IV ONE (12:00)
[2019-06-04] MEDS ORDERED: MORPHINE SULF INJ 2 MG/ML SYRINGE 1ML IV ONE (12:00)
[2019-06-04 12:04] LABS: Albumin 3.5 g/dL (3.4-5.0); Anion Gap 8 (5-15); Blood Urea Nitrogen 19 mg/dL (7-18); Calcium 8.9 mg/dL (8.5-10.1); Carbon Dioxide 26 mmol/L (21-32); Chloride 105 mmol/L (98-107); Glucose 143 mg/dL (74-106); Potassium 4.3 mmol/L (3.5-5.1); Sodium 139 mmol/L (136-145)
[2019-06-04 12:12] LABS: Alanine Aminotransferase 28 U/L (13-56); Alkaline Phosphatase 114 U/L (45-117); Aspartate Aminotransferase 28 U/L (15-37); BUN/Creatinine Ratio 17.6; Bilirubin, Total 0.3 mg/dL (0.2-1.0); GFR African American 66 mL/min; GFR Non-African American 55 mL/min; Total Protein 7.8 g/dL (6.4-8.2)
[2019-06-04] MEDS ORDERED: cefTRIAXone 1GM/50ML D5W 50 ML IV ONE (13:00)
[2019-06-04 14:00] VITALS: BP 148/72
== END 2019-06-04 15:43 | disposition home or self-care (01) ==
LOC: ER 10:48
DX: R07.89 Other chest pain (principal); E11.9 Type 2 diabetes mellitus without complications; E03.9 Hypothyroidism, unspecified; I25.10 Atherosclerotic heart disease of native coronary artery without angina pectoris; G89.4 Chronic pain syndrome; N39.0 Urinary tract infection, site not specified; J44.9 Chronic obstructive pulmonary disease, unspecified; I11.0 Hypertensive heart disease with heart failure; I50.9 Heart failure, unspecified; K21.9 Gastro-esophageal reflux disease without esophagitis; E78.5 Hyperlipidemia, unspecified; Z90.49 Acquired absence of other specified parts of digestive tract; Z82.3 Family history of stroke; Z90.710 Acquired absence of both cervix and uterus; Z98.51 Tubal ligation status
CPT/HCPCS: 36415; 71046; 80053; 81001; 83735; 83880; 84443; 84484; 85025; 93005; 96361; 96365; 96375; 99285; J0696; J2270; J2405; J7030; J7040

== ENCOUNTER → 2019-06-04 | Outpatient (CLI) | payer MEDICARE, MEDICAID ==
[2019-06-04 10:55] LABS: Basophils # (auto) 0.1 10 ^3/uL (0-0.2); Basophils % (auto) 0.7 % (0.0-2.0); Eosinophils # (auto) 0.1 10 ^3/uL (0-0.8); Eosinophils % (auto) 1.1 % (0.0-7.0); Hematocrit 38.6 % (36.0-46.0); Hemoglobin 12.7 g/dL (12.2-16.2); Lymphocytes # (auto) 1.5 10 ^3/uL (0.4-5.4); Lymphocytes % (auto) 20.6 % (10.0-50.0); Mean Corpuscular Hemoglobin 30.6 pg (28.0-32.0); Mean Corpuscular Volume 92.8 fL (80.0-100.0); Monocytes # (auto) 0.6 10 ^3/uL (0-1.3); Monocytes % (auto) 8.2 % (0.0-12.0); Neutrophils # (auto) 5.2 10 ^3/uL (1.6-8.6); Neutrophils % (auto) 69.4 % (37.0-80.0); Platelet Count (auto) 249 10^3/uL (140-450); Red Blood Cells 4.16 10^6/uL (4.0-5.20); Red Cell Distribution Width 13.1 % (11.8-14.3); White Blood Cell 7.5 10^3/uL (4.4-10.8)
[2019-06-04 11:39] LABS: % Iron Saturation 31.1 % (15-50)
[2019-06-04 11:44] LABS: Albumin 3.4 g/dL (3.4-5.0); Calcium 8.9 mg/dL (8.5-10.1); Potassium 4.5 mmol/L (3.5-5.1)
[2019-06-04 11:48] LABS: Ferritin 26.2 ng/mL (10-322)
[2019-06-04 11:49] LABS: Bilirubin, Total 0.3 mg/dL (0.2-1.0); Total Protein 7.3 g/dL (6.4-8.2)
== END | disposition home or self-care (01) ==
LOC: LAB 10:18
PROVIDERS: ATTEND Internal Medicine
DX: D64.9 Anemia, unspecified (principal)
CPT/HCPCS: 36415; 80053; 82607; 82728; 83540; 83550; 85025

== ENCOUNTER 2019-06-16 12:41 | Inpatient (IN) | payer MEDICARE, MEDICAID ==
[~2019-06-16] VITALS: Ht 157.5 cm; Wt 76.0 kg
[~2019-06-16 12:41] MED LIST changes: +CYCL10TA6 PO; -CYCL1TAB18 PO; -IPRA0.00 IN; +IPRA0.00 NEB
[2019-06-16] MEDS ORDERED: ONDANSETRON HCL 4 MG/2 ML VIAL IV ONE (12:45)
[2019-06-16] MEDS ORDERED: MORPHINE SULFATE 4 MG/ML SYR/VIAL IV ONE (12:45)
[2019-06-16 13:11] LABS: Basophils # (auto) 0 10 ^3/uL (0-0.2); Basophils % (auto) 0.5 % (0.0-2.0); Eosinophils # (auto) 0.1 10 ^3/uL (0-0.8); Eosinophils % (auto) 1.3 % (0.0-7.0); Hemoglobin 11.2 g/dL (12.2-16.2); Lymphocytes # (auto) 1.3 10 ^3/uL (0.4-5.4); Lymphocytes % (auto) 22.9 % (10.0-50.0); Mean Corpuscular Hemoglobin 29.3 pg (28.0-32.0); Mean Corpuscular Hgb Conc. 32.1 g/dL (32.0-36.0); Mean Corpuscular Volume 91.3 fL (80.0-100.0); Monocytes # (auto) 0.5 10 ^3/uL (0-1.3); Monocytes % (auto) 7.7 % (0.0-12.0); Neutrophils % (auto) 67.6 % (37.0-80.0); Nucleated Red Blood Cells % 0.1 %; Platelet Count (auto) 252 10^3/uL (140-450); Red Blood Cells 3.83 10^6/uL (4.0-5.20); Red Cell Distribution Width 13.1 % (11.8-14.3); White Blood Cell 5.9 10^3/uL (4.4-10.8)
[2019-06-16 13:25] LABS: INR 1.03 (0.9-1.15); Partial Thromboplastin Time 26.2 sec (23.64-32.05)
[2019-06-16 13:31] LABS: Alanine Aminotransferase 21 U/L (13-56); Anion Gap 4 (5-15); Aspartate Aminotransferase 19 U/L (15-37); BUN/Creatinine Ratio 12.6; Blood Urea Nitrogen 12 mg/dL (7-18); Calcium 8.7 mg/dL (8.5-10.1); Carbon Dioxide 29 mmol/L (21-32); Chloride 106 mmol/L (98-107); GFR African American 77 mL/min; GFR Non-African American 63 mL/min; Glucose 121 mg/dL (74-106); Potassium 3.8 mmol/L (3.5-5.1); Sodium 139 mmol/L (136-145)
[2019-06-16 13:36] LABS: Alkaline Phosphatase 109 U/L (45-117); Bilirubin, Total 0.3 mg/dL (0.2-1.0); Total Protein 6.6 g/dL (6.4-8.2)
[2019-06-16] MEDS ORDERED: NITROGLYCERIN 0.4 MG SL TAB SL ONE (14:30)
[2019-06-16] MEDS ORDERED: NITROGLYCERIN 0.4 MG SL TAB SL PRN (14:45)
[2019-06-16] MEDS ORDERED: IPRATROPIUM BROM 0.5 MG/2.5ML INH SOL NEB ONE (15:00)
[2019-06-16] MEDS ORDERED: ALBUTEROL SULF 2.5 MG/0.5ML(0.5%) NEB SOLN NEB ONE (15:00)
[2019-06-16] MEDS ORDERED: FUROSEMIDE 100 MG/10ML VIAL IV ONE (15:00)
[2019-06-16] MEDS ORDERED: LORazepam 0.5 MG TAB PO PRN (15:00)
[2019-06-16] MEDS ORDERED: ALUM & MAG HYDROX-SIMETH LIQ(MAALOX) 30 ML PO ONE (15:00)
[2019-06-16] MEDS ORDERED: MORPHINE SULFATE 4 MG/ML SYR/VIAL IV PRN (15:00)
[2019-06-16 15:05] VITALS: BP 173/75
[2019-06-16] MEDS ORDERED: DEXTROSE (50%) 50ML SYRG IV PRN (15:15)
[2019-06-16] MEDS ORDERED: hydrALAZINE HCL 20 MG/ML VL IV PRN (15:15)
[2019-06-16] MEDS: DOXYCYCLINE 100MG/250ML 250 ML IV SCH (16:16)
[2019-06-16] MEDS: HYDROcodone-ACET 5/325MG TAB PO PRN (16:45)
[2019-06-16 16:58] VITALS: BP 167/85
[2019-06-16] MEDS: FUROSEMIDE 100 MG/10ML VIAL IV SCH (18:00)
[2019-06-16] MEDS ORDERED: MORPHINE SULF INJ 2 MG/ML SYRINGE 1ML IV ONE (18:00)
--- NOTE | 2019-06-16 18:00 | NUR ---
Pain Patient is complaining of pain all over. Called hospitalist and got a one time order for morphine.
[2019-06-16] MEDS: ACCU-CHEK COMFORT CURVE STRIP VI SCH ×2 (18:15→22:19)
[2019-06-16] MEDS: InsuLIN REG 1unit/0.01ml Soln (100units/ml) SC SCH ×2 (18:17→22:00)
[2019-06-16] MEDS ORDERED: SODIUM BICARBONATE 50ML VIAL 50 ML in SOD CHL 0.45% 1,000 ML IV ONE (19:30)
[2019-06-16 19:40] VITALS: BP 167/85
--- NOTE | 2019-06-16 19:50 | NUR ---
Opening Shift Note Assumed care of patient, awake, AAOx4. No S/S of distress/SOB. On room air and ambulatory to bedside commode. Bed in lowest locked position, side rails up x2, call light within reach. Instructed on POC and to call for assist PRN, will continue to monitor for changes Q1hr and PRN.
--- NOTE | 2019-06-16 19:59 | NUR ---
MELITA When the patient arrived to the floor, she was A & O x4. Patient asked for pain medication. I received a one time order for morphine and administered to the patient. I went back a little later to do the admission on the patient and I found her to be confused and not able to answer questions correctly. I asked the patient if she had any medications in her personal belongings. The patient then called her son Samy on her cell phone. I asked to speak to the son and he informed me that "she is notorious for being home medications in the hospital". I then looked through the patient's belongings and found a bottle of Benadryl, Trazodone, and a can of Altoids that had Percocet and other medications in it. I took the patient's vitals BP 194/109 HR 80 O2 100%, called the hospitalist, and informed the charge nurse. Dr Goldsmith called back and I received new orders.
[2019-06-16 20:00] VITALS: BP 119/65
--- NOTE | 2019-06-16 21:05 | NUR ---
Respiratory note: ASSESSED PT FOR PRN TX PT WAS AWAKE AND ALERT, NO RESP DISTRESS NOTED. HR 60, RR 16, SPO2 99% ON 2L N/C. BS ARE CLEAR DIMINISHED. NO INDICATION FOR TX AT THIS TIME. PT KNOWS TO HAVE RT PAGED IF TX IS NEEDED.
[2019-06-16 22:00] VITALS: BP 119/65
[2019-06-16] MEDS ORDERED: CYCLOBENZAPRINE HCL 10 MG TAB PO SCH (22:00)
[2019-06-16] MEDS: METOPROLOL TARTRATE 50 MG TAB PO SCH (22:00)
--- NOTE | 2019-06-16 22:00 | NUR ---
IV INFILTRATED IV DC'd with clean sterile technique, catheter fully intact. Pressure dressing applied to site. Patient tolerated well.
--- NOTE | 2019-06-16 22:15 | NUR ---
IV insertion IV access obtained, via clean sterile technique by inserting 22 gauge catheter at RIGHT WRIST after 1 attempt. IV secured properly. No trauma to site. Patient tolerated well.
[2019-06-16] MEDS: ATORVASTATIN 20 MG TAB PO SCH (22:16)
[2019-06-16] MEDS: RANOLAZINE ER 500 MG TAB PO SCH (22:18)
[2019-06-16] MEDS: ZOLPIDEM TARTRATE 5 MG TAB PO PRN (23:29)
[2019-06-17] MEDS: HYDROcodone-ACET 5/325MG TAB PO PRN (00:19)
[2019-06-17] MEDS: ALBUTEROL SULF 2.5 MG/0.5ML(0.5%) NEB SOLN NEB PRN ×3 (00:58→12:33)
[2019-06-17] MEDS: DOXYCYCLINE 100MG/250ML 250 ML IV SCH (04:28)
[2019-06-17 05:05] VITALS: BP 126/69
[2019-06-17] MEDS: ACCU-CHEK COMFORT CURVE STRIP VI SCH ×4 (06:20→22:22)
[2019-06-17] MEDS: InsuLIN REG 1unit/0.01ml Soln (100units/ml) SC SCH ×4 (06:20→22:00)
[2019-06-17] MEDS: FUROSEMIDE 100 MG/10ML VIAL IV SCH ×2 (06:20→18:00)
[2019-06-17 06:55] LABS: Basophils # (auto) 0 10 ^3/uL (0-0.2); Basophils % (auto) 0.5 % (0.0-2.0); Eosinophils # (auto) 0.1 10 ^3/uL (0-0.8); Eosinophils % (auto) 1.6 % (0.0-7.0); Hematocrit 35.7 % (36.0-46.0); Hemoglobin 11.6 g/dL (12.2-16.2); Lymphocytes # (auto) 1.3 10 ^3/uL (0.4-5.4); Lymphocytes % (auto) 23.7 % (10.0-50.0); Mean Corpuscular Hemoglobin 29.9 pg (28.0-32.0); Mean Corpuscular Hgb Conc. 32.4 g/dL (32.0-36.0); Mean Corpuscular Volume 92.3 fL (80.0-100.0); Monocytes # (auto) 0.5 10 ^3/uL (0-1.3); Neutrophils # (auto) 3.6 10 ^3/uL (1.6-8.6); Neutrophils % (auto) 65.2 % (37.0-80.0); Platelet Count (auto) 242 10^3/uL (140-450); Red Blood Cells 3.86 10^6/uL (4.0-5.20); Red Cell Distribution Width 13.2 % (11.8-14.3); White Blood Cell 5.5 10^3/uL (4.4-10.8)
[2019-06-17] MEDS ORDERED: LEVOTHYROXINE SODIUM 100 MCG TAB PO SCH (07:00)
[2019-06-17 07:10] LABS: INR 1.03 (0.9-1.15); Partial Thromboplastin Time 26.8 sec (23.64-32.05)
[2019-06-17 07:33] LABS: Potassium 3.9 mmol/L (3.5-5.1)
--- NOTE | 2019-06-17 07:33 | NUR ---
OPENING SHIFT NOTE: PATIENT RESTING IN BED. A/OX4 RESPIRATIONS EVEN AND UNLABORED. PATIENT UPDATED ON PLAN OF CARE, CALL LIGHT PLACED WITHIN REACH. FALL PRECAUTIONS IN PLACE. WILL CONTINUE TO MONITOR.
[2019-06-17 07:46] LABS: Albumin 2.8 g/dL (3.4-5.0); BUN/Creatinine Ratio 11.5; Bilirubin, Total 0.2 mg/dL (0.2-1.0); Calcium 8.6 mg/dL (8.5-10.1); Magnesium 1.9 mg/dL (1.6-2.6); Phosphorus 3.4 mg/dL (2.5-4.90); Total Protein 6.6 g/dL (6.4-8.2)
[2019-06-17] MEDS: MORPHINE SULF INJ 2 MG/ML SYRINGE 1ML IV PRN ×2 (08:06→22:23)
--- NOTE | 2019-06-17 08:07 | NUR ---
CHEST PAIN: PATIENT C/O RADIATING HEAVINESS AND CHEST PRESSURE 7/10 OFF AND ON. PER PROTOCOL, MORPHINE GIVEN EKG DONE AND PLACED IN THE HARD CHART SHOWING NORMAL SINUS RHYTHM. PAGE MADE TO MD ANGELES. RESPIRATIONS EVEN AND UNLABORED HR 60. WILL CONTINUE TO MONITOR.
[2019-06-17] MEDS: IPRATROPIUM BROM 0.5 MG/2.5ML INH SOL NEB PRN ×2 (08:15→12:33)
[2019-06-17 09:00] VITALS: BP 136/73
--- NOTE | 2019-06-17 09:06 | NUR ---
PATIENT C/O ITCHING: PATIENT REQUESTING SOMETHING FOR ITCHING. PATIENT REPORTS, "I AM ALWAYS ITCHY." NO REDNESS OR ANY VISIBLE SIGN OF RASH OR SCRATCHING. WILL CONTINUE TO MONITOR AND INFORM MD.
[2019-06-17] MEDS: DOCUSATE SOD 100 MG CAP PO SCH (09:41)
[2019-06-17] MEDS: FLUTICASONE PROP NASAL SPR 0.05 % (50MCG) 16GM SCH (09:41)
[2019-06-17] MEDS: CLOPIDOGREL BISULFATE 75 MG TAB PO SCH (09:42)
[2019-06-17] MEDS: ISOSORBIDE MONONITRATE ER 60 MG TAB PO SCH (09:42)
[2019-06-17] MEDS: GABAPENTIN 100 MG CAP PO SCH (09:42)
[2019-06-17] MEDS: METOPROLOL TARTRATE 50 MG TAB PO SCH ×2 (09:42→22:00)
[2019-06-17] MEDS: ONDANSETRON HCL 4 MG/2 ML VIAL IV PRN ×3 (09:43→22:24)
[2019-06-17] MEDS: PANTOPRAZOLE 40 MG TAB PO SCH (09:43)
[2019-06-17] MEDS: NTG 0.1MG/HR TOPICAL PATCH TD SCH (09:44)
[2019-06-17] MEDS: RANOLAZINE ER 500 MG TAB PO SCH ×2 (09:45→22:22)
[2019-06-17] MEDS ORDERED: NITROGLYCERIN 0.4MG/HR TOPICAL PATCH TD SCH (10:00)
[2019-06-17] MEDS ORDERED: ENOXAPARIN SOD 40 MG/0.4 ML SYRINGE SC SCH (10:00)
--- NOTE | 2019-06-17 12:14 | NUR ---
PATIENT STATUS: MD ADKINS MADE AWARE OF LOW BP, MOST RECENT TROPONIN LEVEL, AND PATIENT COMPLAINTS. ORDERS RECEIVED AND CONSULT TO HEAD WRESTLING COACH MD THOMPSON COMPLETED. NEXT TROP LEVEL TO FOLLOW AT 1500.
[2019-06-17] MEDS ORDERED: SODIUM CHLORIDE 0.9% 500 ML IV ONE (12:15)
[2019-06-17] MEDS ORDERED: ENOXAPARIN SOD 40 MG/0.4 ML SYRINGE SC ONE (12:30)
[2019-06-17 13:00] VITALS: BP 84/51
--- NOTE | 2019-06-17 14:01 | NUR ---
DISCHARGE: PATIENT DISCHARGED WITH ALL BELONGINGS, ALL EDUCATION MATERIALS GIVEN AND REVIEWED WITH PATIENT. IV REMOVED MANUAL PRESSURE APPLIED, TELE BOX RETURNED TO CARDIO UNIT. PATIENT AMBULATED OUT TO PRIVATE AUTO WITHOUT INCIDENCE. Addendum: 06/17/19 at 1403 by ROSARIO ROONEY RN RN MISTAKEN ENTRY
--- NOTE | 2019-06-17 14:03 | NUR ---
MD THOMPSON MADE AWARE OF SECOND STAT TROPONIN LABS, ORDERS RECEIVED. PATIENT TO BE TRANSFERRED TO [facility].
[2019-06-17] MEDS: diphenhdrAMINE HCL 50 MG/1 ML VL IV PRN ×2 (15:39→22:23)
--- NOTE | 2019-06-17 15:39 | NUR ---
I called the [facility] Transfer Center [phone] and spoke with Alaina-provided her with contact information for Dr. Guzman-I let her know that our records manager Dr. Nolen spoke with her records manager there Dr. Chiki Reid. I provided Alaina with contact information for the nurse's station. Faxed requested clinical information to [phone].
--- NOTE | 2019-06-17 16:11 | NUR ---
I called [facility] ([phone]) and spoke with Soraya, placed them on will call pending transfer to [facility]. Faxed Medicare PCS form to [facility].
--- NOTE | 2019-06-17 16:45 | NUR ---
I called [facility] transfer center and spoke with Mackenzie, they have no beds available at this time. I called [facility] transfer center and spoke with Zahraa-they have no beds available at this time. I re-faxed updated Medicare PCS form to [facility].
[2019-06-17 17:00] VITALS: BP 99/55
--- NOTE | 2019-06-17 19:20 | NUR ---
OPENING SHIFT NOTE Assumed care of patient who is A&O x4. Currently on 3L NC with no s/s of distress. Reports 10/10 chest heaviness that has been intermittent since admission. Pain management options discussed. PIV in right wrist is intact and patent. Flushed with 10ml NS. POC discussed with patient who verbalizes understanding. Bed is in low locked position with side rails up x2. Call light is within reach and patient encouraged to call for assistance when needed. Will continue to monitor for changes PRN.
--- NOTE | 2019-06-17 19:22 | NUR ---
CARE ENDORSED TO VIRGEN SOTO.
[2019-06-17] MEDS: IPRATROPIUM BROM 0.5 MG/2.5ML INH SOL NEB SCH ×2 (19:23→23:09)
[2019-06-17] MEDS: ALBUTEROL SULF 2.5 MG/0.5ML(0.5%) NEB SOLN NEB SCH ×2 (19:23→23:09)
[2019-06-17 20:00] VITALS: BP 115/61
--- NOTE | 2019-06-17 20:54 | NUR ---
[facility] Received call from Alaina at [facility] transfer center. Requesting that patient be swab to R/O COVID-19 prior to transfer. Will request order.
[2019-06-17 22:00] VITALS: BP 115/61
--- NOTE | 2019-06-17 22:19 | NUR ---
Received call from lab reporting critical troponin of 8.110. Hospitalist paged to notify.
[2019-06-17] MEDS: ATORVASTATIN 20 MG TAB PO SCH (22:21)
[2019-06-17] MEDS: ENOXAPARIN SOD 80 MG/0.8ML SYRINGE SC SCH (22:22)
--- NOTE | 2019-06-17 22:23 | NUR ---
Patient refused 2200 dose of Lopressor. Stating, "It causes my blood pressure to drop too low". Patient educated on the indication and importance of this medication. Will continue to monitor.
[2019-06-17] MEDS: ZOLPIDEM TARTRATE 5 MG TAB PO PRN (22:30)
--- NOTE | 2019-06-18 00:10 | NUR ---
Received call from Hospitalist, Rubens Yee NP. New orders received. Will follow through.
[2019-06-18 05:30] VITALS: BP 147/66
[2019-06-18 06:11] LABS: Basophils # (auto) 0 10 ^3/uL (0-0.2); Basophils % (auto) 0.4 % (0.0-2.0); Eosinophils # (auto) 0.1 10 ^3/uL (0-0.8); Eosinophils % (auto) 1.2 % (0.0-7.0); Hematocrit 34.4 % (36.0-46.0); Hemoglobin 11.3 g/dL (12.2-16.2); Lymphocytes # (auto) 1.5 10 ^3/uL (0.4-5.4); Lymphocytes % (auto) 23.4 % (10.0-50.0); Mean Corpuscular Hemoglobin 30.1 pg (28.0-32.0); Mean Corpuscular Hgb Conc. 32.8 g/dL (32.0-36.0); Mean Corpuscular Volume 91.8 fL (80.0-100.0); Monocytes # (auto) 0.7 10 ^3/uL (0-1.3); Monocytes % (auto) 10.7 % (0.0-12.0); Neutrophils # (auto) 4.2 10 ^3/uL (1.6-8.6); Neutrophils % (auto) 64.3 % (37.0-80.0); Platelet Count (auto) 246 10^3/uL (140-450); Red Blood Cells 3.74 10^6/uL (4.0-5.20); Red Cell Distribution Width 12.7 % (11.8-14.3); White Blood Cell 6.5 10^3/uL (4.4-10.8)
[2019-06-18] MEDS: IPRATROPIUM BROM 0.5 MG/2.5ML INH SOL NEB SCH ×5 (06:11→22:00)
[2019-06-18] MEDS: ALBUTEROL SULF 2.5 MG/0.5ML(0.5%) NEB SOLN NEB SCH ×5 (06:11→22:00)
[2019-06-18 06:23] LABS: Calcium 8.3 mg/dL (8.5-10.1); Potassium 3.8 mmol/L (3.5-5.1)
[2019-06-18 06:30] LABS: BUN/Creatinine Ratio 12.5
[2019-06-18] MEDS: FUROSEMIDE 100 MG/10ML VIAL IV SCH ×2 (06:38→17:58)
[2019-06-18] MEDS: InsuLIN REG 1unit/0.01ml Soln (100units/ml) SC SCH ×4 (06:39→22:25)
[2019-06-18] MEDS: ACCU-CHEK COMFORT CURVE STRIP VI SCH ×4 (06:39→22:08)
[2019-06-18] MEDS: LEVOTHYROXINE SODIUM 50 MCG TAB PO SCH (06:40)
[2019-06-18] MEDS: ONDANSETRON HCL 4 MG/2 ML VIAL IV PRN ×3 (06:55→17:59)
[2019-06-18] MEDS: MORPHINE SULF INJ 2 MG/ML SYRINGE 1ML IV PRN ×4 (06:56→22:15)
--- NOTE | 2019-06-18 06:56 | NUR ---
CRITICAL LAB Received call from Salome in lab, reporting critical Troponin of 6.31. Hospitalist and Manager [employer], Dr. Nolen are aware of elevated trops. Patient will transfer to [facility] for higher level of care, under the treatment of previous electric truck crane operator, Dr. Chiki Reid.
--- NOTE | 2019-06-18 07:48 | NUR ---
RECEIVED PATIENT RESTING AND SLEEPING, NOT IN DISTRESS, HEAD OF BED ELEVATED, BED ON LOW POSITION, RAILS UP, CALL LIGHT ON REACH, WILL CONTINUE MONITORING.
[2019-06-18] MEDS: diphenhdrAMINE HCL 50 MG/1 ML VL IV PRN ×2 (08:16→17:59)
[2019-06-18 09:00] VITALS: BP 100/62
[2019-06-18] MEDS: NTG 0.1MG/HR TOPICAL PATCH TD SCH (10:00)
[2019-06-18] MEDS: FLUTICASONE PROP NASAL SPR 0.05 % (50MCG) 16GM SCH (10:26)
[2019-06-18] MEDS: CLOPIDOGREL BISULFATE 75 MG TAB PO SCH (10:27)
[2019-06-18] MEDS: ISOSORBIDE MONONITRATE ER 60 MG TAB PO SCH (10:27)
[2019-06-18] MEDS: DOCUSATE SOD 100 MG CAP PO SCH (10:27)
[2019-06-18] MEDS: PANTOPRAZOLE 40 MG TAB PO SCH (10:27)
[2019-06-18] MEDS: ENOXAPARIN SOD 80 MG/0.8ML SYRINGE SC SCH ×2 (10:28→22:08)
[2019-06-18] MEDS: GABAPENTIN 100 MG CAP PO SCH (10:28)
[2019-06-18] MEDS: METOPROLOL TARTRATE 50 MG TAB PO SCH ×2 (10:28→22:16)
[2019-06-18] MEDS: RANOLAZINE ER 500 MG TAB PO SCH ×2 (10:28→22:08)
--- NOTE | 2019-06-18 12:47 | NUR ---
I faxed negative COVID-19 result to [facility] transfer center.
[2019-06-18 12:48] VITALS: BP 103/60
--- NOTE | 2019-06-18 13:16 | NUR ---
[facility] WAS CALLED FOR PENDING TRANSFER TO HIGHER LEVEL OF CARE AND LEFT A MESSAGE, WAITING FOR CALL BACK, WILL CONTINUE MONITORING.
--- NOTE | 2019-06-18 16:36 | NUR ---
ALERT AND ORIENTED, NOT IN DISTRESS, CLEAR SOUND IN BILATERAL LUNG LOBES RR=18 SAT=97%, DEEP BREATHING AND COUGHING ENCOURAGED, DEMONSTRATED AND VERBALIZED UNDERSTANDING, DENIED CHEST PAIN AND SOB, SR R=64 ON TELE MONITOR, ABDOMEN SOFT WITH ACTIVE BS, LAST BM=06/16/19 REPORTED, SKIN DRY AND INTACT, RT. SIDE UPPER AND LOWER EXTREMITIES WEAKNESS NOTED, HEAD OF BED ELEVATED, BED ON LOW POSITION, RAILS UP X2, CALL LIGHTS ON REACH, PENDING SS FOR TRANSFER PROCESS, WILL CONTINUE MONITORING.
[2019-06-18 17:00] VITALS: BP 99/56
--- NOTE | 2019-06-18 17:16 | NUR ---
I spoke with Alaina at [facility] transfer center. I re-faxed her the COVID-19 negative result as requested. I also provided her with fax number to [facility] Nurse's station [phone] to fax transfer back agreement to. I spoke with nurse Wayne to update her on the status of the transfer-I let her know that [facility] would be faxing her a transfer back agreement that would have to be signed by and warehouse production worker, I also let her know that [facility] is on will call.
--- NOTE | 2019-06-18 19:15 | NUR ---
Opening Shift Note Assumed care of patient, awake and alert. No S/S of distress/SOB or pain. Instructed on POC and to call for assist PRN, will continue to monitor for changes Q1hr and PRN. Bed placed in lowest position, bed alarm turned on and call light within reach.
[2019-06-18 20:00] VITALS: BP 136/64
--- NOTE | 2019-06-18 20:01 | NUR ---
PENDING TRANSFER TO [facility], REPORT WAS GIVEN TO THE ORNAMENT STITCHER RN, HEAD OF BED ELEVATED, BED ON LOW POSITION, RAILS UP X2, CALL LIGHT ON REACH.
[2019-06-18 21:53] VITALS: BP 136/64
[2019-06-18] MEDS: ATORVASTATIN 20 MG TAB PO SCH (22:08)
[2019-06-18] MEDS: ZOLPIDEM TARTRATE 5 MG TAB PO PRN (22:14)
--- NOTE | 2019-06-18 23:23 | NUR ---
Report given to BRITTANY Rogers. Patient is resting in bed with eyes closed, no distress noted and patient just received morphine for pain.
--- NOTE | 2019-06-18 23:30 | NUR ---
Assumed care from BRITTANY Mae, patient sleeping at this time. Respirations even and unlabored, will continue to monitor
[2019-06-19] VITALS (8 sets, daily range): BP systolic 88–150; BP diastolic 46–71
[2019-06-19] MEDS: MORPHINE SULF INJ 2 MG/ML SYRINGE 1ML IV PRN ×3 (04:09→21:12)
--- NOTE | 2019-06-19 04:18 | NUR ---
Complained of chest pain radiating to neck and back. V/S taken and EKG done. Maintained on O2 at 2 Lpm/NC. Morphine IV given. Will continue to monitor
--- NOTE | 2019-06-19 05:20 | NUR ---
IV on right wrist infiltrated, removed with catheter intact, patient tolerated well IV insertion IV access obtained, via clean sterile technique by inserting 22 gauge catheter at RADHA after [2] attempt(s). IV secured properly. No trauma to site. Patient tolerated well. NOTE: []
[2019-06-19] MEDS: ONDANSETRON HCL 4 MG/2 ML VIAL IV PRN ×3 (05:42→21:12)
[2019-06-19] MEDS: diphenhdrAMINE HCL 50 MG/1 ML VL IV PRN (05:43)
[2019-06-19] MEDS: ACCU-CHEK COMFORT CURVE STRIP VI SCH ×4 (05:43→23:14)
[2019-06-19] MEDS: FUROSEMIDE 100 MG/10ML VIAL IV SCH ×2 (05:43→18:00)
[2019-06-19] MEDS: LEVOTHYROXINE SODIUM 50 MCG TAB PO SCH (05:51)
[2019-06-19] MEDS: InsuLIN REG 1unit/0.01ml Soln (100units/ml) SC SCH ×4 (05:52→23:14)
[2019-06-19] MEDS: IPRATROPIUM BROM 0.5 MG/2.5ML INH SOL NEB SCH ×5 (06:03→23:20)
[2019-06-19] MEDS: ALBUTEROL SULF 2.5 MG/0.5ML(0.5%) NEB SOLN NEB SCH ×5 (06:03→23:20)
--- NOTE | 2019-06-19 07:55 | NUR ---
Opening Shift Note Assumed care of patient from night RN. Patient sitting on side of bed, A&Ox4. Respirations even and non-labored, no S/S of distress or SOB noted, denies any pain or discomfort at the moment. Instructed on POC and to call for assistance as needed, call light within reach. Safety measures in place, bed set to lowest locked position x 2 rails up. Will continue to monitor for changes Q1hr and PRN.
--- NOTE | 2019-06-19 08:20 | NUR ---
Call to Case Management Call to Nadine in case management. Per manager night, fax was never received from [facility]. Awaiting callback.
[2019-06-19] MEDS: DOCUSATE SOD 100 MG CAP PO SCH (10:00)
[2019-06-19] MEDS: PANTOPRAZOLE 40 MG TAB PO SCH (10:08)
[2019-06-19] MEDS: FLUTICASONE PROP NASAL SPR 0.05 % (50MCG) 16GM SCH (10:08)
[2019-06-19] MEDS: METOPROLOL TARTRATE 50 MG TAB PO SCH ×2 (10:13→21:56)
[2019-06-19] MEDS: ISOSORBIDE MONONITRATE ER 60 MG TAB PO SCH (10:13)
[2019-06-19] MEDS: RANOLAZINE ER 500 MG TAB PO SCH ×2 (10:13→21:10)
[2019-06-19] MEDS: CLOPIDOGREL BISULFATE 75 MG TAB PO SCH (10:13)
[2019-06-19] MEDS: GABAPENTIN 100 MG CAP PO SCH (10:13)
[2019-06-19] MEDS: ENOXAPARIN SOD 80 MG/0.8ML SYRINGE SC SCH ×2 (10:13→21:11)
[2019-06-19] MEDS: NTG 0.1MG/HR TOPICAL PATCH TD SCH (10:34)
--- NOTE | 2019-06-19 10:37 | NUR ---
Pain Patient is complaining of chest pain. Will administer morphine according to patient's EMAR.
--- NOTE | 2019-06-19 11:07 | NUR ---
Pain Reassessment Patient's pain is now 4/10. Patient appears comfortable. No distress noted.
--- NOTE | 2019-06-19 11:25 | NUR ---
Call to Case Management Call to Nadine in case management at this time. Left a message regarding patient's transfer. Awaiting call back.
--- NOTE | 2019-06-19 11:36 | NUR ---
Faxed transfer back agreement to [facility].
--- NOTE | 2019-06-19 11:47 | NUR ---
I called the [facility] Transfer Center [phone] and spoke with Freda regarding the status of the transfer. Per Freda she is requesting updated MD progress notes to be faxed to her. She has to speak with her medical nurse and will give me a call back. I also spoke with nurse Mann and updated her on the status of the transfer.
--- NOTE | 2019-06-19 11:48 | NUR ---
Call back from Case Management Call back from Nadine in case management. Paperwork was re-faxed to [facility]. Awaiting notification of acceptance.
--- NOTE | 2019-06-19 14:14 | NUR ---
assessment Patient is a 63 year old female who is alert and oriented. Patients cognitive abilities are intact. Prior to admission patient lived home with family and functioned with assistance. Per patient she has a fww, cane, wheelchair, and oxygen for home use. Patients PCP is Dr Guzman. [facility] Patient is aware of her consult for transfer to [facility]. Patient agrees to transfer. I informed patient she has a right to speak to a dye worker regarding all care. I informed patient she has a right to participate in any and all discharge planning. Patient does not have a POA and advanced directive. I have offered patient information on POA and advanced directives. I informed the patient the advantages and benefits of having an Advanced Directive. Patient verbalized understanding and agreed to discharge plan. Addendum: 06/19/19 at 1417 by Leana JARVIS Amended: Links added.
--- NOTE | 2019-06-19 14:50 | NUR ---
I called [facility] Transfer Center [phone] and spoke with Micky-requested an update on the status of the transfer. Per Micky they are having trouble with their computer systems-that is why I have had to re-fax items more than once. Per Micky they have all the documents they need and are just waiting for a bed to open up-I relayed this information to nurse Mann.
[2019-06-19] MEDS ORDERED: SODIUM CHLORIDE 0.9% 1,000 ML IV ONE (18:15)
--- NOTE | 2019-06-19 18:15 | NUR ---
Re: Patient's blood pressure Patient's blood pressure has decreased to 88/46. Patient is asymptomatic. Removed patient's nitro patch. Received orders to give 1L bolus.
--- NOTE | 2019-06-19 18:35 | NUR ---
RT NOTE PT WAS SEEN BY RT FOR HHN TX. PT TOLERATES WELL VIA MASK. NO ADVERSE REACTION NOTED. CONT ORDERED Addendum: 06/19/19 at 1838 by Leigh Sandra RT Amended: Links added.
--- NOTE | 2019-06-19 18:45 | NUR ---
Reassessed Blood Pressure Patient's blood pressure is 106/50. Patient up in bed eating dinner. No distress noted.
--- NOTE | 2019-06-19 19:45 | NUR ---
Closing Shift Note Patient resting in bed. No distress noted. Report given. Will endorse care to the material handler 1st shift RN.
[2019-06-19] MEDS: ATORVASTATIN 20 MG TAB PO SCH (21:10)
[2019-06-19] MEDS: ZOLPIDEM TARTRATE 5 MG TAB PO PRN (21:12)
--- NOTE | 2019-06-19 23:14 | NUR ---
RT NOTE PT WAS SEEN BY RT FOR HHN TX. PT WAS SLEEPING BU EASILY AWAKENED. HR 57, RR 16, BS CLEAR/DIM ,POX 99% ON 3L NASAL CANNULA. PT REQUESTS TO SLEEP INSTEAD OF TAKING TX. NO SOB OR DISTRESS NOTED. TREATMENT HELD PER PT REQUEST. CONT ORDERED Addendum: 06/20/19 at 0026 by Leigh Sandra RT Amended: Links added.
[2019-06-20 05:19] VITALS: BP 121/70
[2019-06-20] MEDS: LEVOTHYROXINE SODIUM 50 MCG TAB PO SCH (05:46)
[2019-06-20] MEDS: FUROSEMIDE 100 MG/10ML VIAL IV SCH ×2 (05:46→18:25)
[2019-06-20] MEDS: MORPHINE SULF INJ 2 MG/ML SYRINGE 1ML IV PRN ×3 (05:47→22:27)
[2019-06-20] MEDS: ONDANSETRON HCL 4 MG/2 ML VIAL IV PRN ×3 (05:48→22:27)
[2019-06-20] MEDS: ALBUTEROL SULF 2.5 MG/0.5ML(0.5%) NEB SOLN NEB SCH ×5 (05:56→23:10)
[2019-06-20] MEDS: IPRATROPIUM BROM 0.5 MG/2.5ML INH SOL NEB SCH ×5 (05:56→23:10)
[2019-06-20] MEDS: ACCU-CHEK COMFORT CURVE STRIP VI SCH ×4 (06:00→22:25)
[2019-06-20] MEDS: InsuLIN REG 1unit/0.01ml Soln (100units/ml) SC SCH ×4 (06:00→22:24)
[2019-06-20] MEDS: diphenhdrAMINE HCL 50 MG/1 ML VL IV PRN ×2 (08:46→22:41)
[2019-06-20 09:00] VITALS: BP 124/57
--- NOTE | 2019-06-20 09:29 | NUR ---
I called the [facility] transfer center [phone] and spoke with Freda, she said they are still waiting for a bed to open up for this patient.
[2019-06-20] MEDS: METOPROLOL TARTRATE 50 MG TAB PO SCH ×2 (10:38→22:23)
[2019-06-20] MEDS: GABAPENTIN 100 MG CAP PO SCH (10:38)
[2019-06-20] MEDS: DOCUSATE SOD 100 MG CAP PO SCH (10:38)
[2019-06-20] MEDS: ISOSORBIDE MONONITRATE ER 60 MG TAB PO SCH (10:38)
[2019-06-20] MEDS: FLUTICASONE PROP NASAL SPR 0.05 % (50MCG) 16GM SCH (10:38)
[2019-06-20] MEDS: RANOLAZINE ER 500 MG TAB PO SCH ×2 (10:39→22:41)
[2019-06-20] MEDS: ENOXAPARIN SOD 80 MG/0.8ML SYRINGE SC SCH (10:39)
[2019-06-20] MEDS: PANTOPRAZOLE 40 MG TAB PO SCH (10:39)
[2019-06-20] MEDS: CLOPIDOGREL BISULFATE 75 MG TAB PO SCH (10:39)
[2019-06-20] MEDS: NTG 0.1MG/HR TOPICAL PATCH TD SCH (10:40)
--- NOTE | 2019-06-20 11:35 | NUR ---
I spoke with Dr. Guzman and updated him on the status of the transfer-letting him know that [facility] still has no beds available.
[2019-06-20 13:00] VITALS: BP 95/65
--- NOTE | 2019-06-20 13:02 | NUR ---
I called the [facility] Transfer Center [phone] and left message asking for update on bed status for this patient-letting them know that our newspaper reporter Dr. Nolen spoke with Dr. Reid ([facility] newspaper reporter) who is asking why patient has not been transferred yet.
[2019-06-20] MEDS: GABAPENTIN 400 MG CAP PO SCH ×2 (14:02→22:23)
[2019-06-20 17:00] VITALS: BP 112/63
[2019-06-20 22:00] VITALS: BP 122/66
[2019-06-20] MEDS: ATORVASTATIN 20 MG TAB PO SCH (22:22)
[2019-06-20] MEDS: ZOLPIDEM TARTRATE 5 MG TAB PO PRN (22:26)
--- NOTE | 2019-06-20 23:36 | NUR ---
Endorsed care of pt to Senthil SOTO at this time.
--- NOTE | 2019-06-20 23:59 | NUR ---
RECEIVED REPORT ON PATIENT FROM KAYKAY CARTER. PATIENT SEEN. SLEEPING BUT AROUSABLE. DENIED CHEST PAIN. MONITORING CONTINUES.
[2019-06-21 05:00] VITALS: BP 122/74
[2019-06-21] MEDS: MORPHINE SULF INJ 2 MG/ML SYRINGE 1ML IV PRN ×3 (05:14→22:04)
[2019-06-21] MEDS: GABAPENTIN 400 MG CAP PO SCH ×3 (05:15→22:04)
[2019-06-21] MEDS: FUROSEMIDE 100 MG/10ML VIAL IV SCH ×2 (05:21→18:00)
[2019-06-21] MEDS: ONDANSETRON HCL 4 MG/2 ML VIAL IV PRN ×2 (05:33→22:10)
[2019-06-21] MEDS: LEVOTHYROXINE SODIUM 50 MCG TAB PO SCH (05:34)
[2019-06-21] MEDS: IPRATROPIUM BROM 0.5 MG/2.5ML INH SOL NEB SCH ×5 (06:15→22:21)
[2019-06-21] MEDS: ALBUTEROL SULF 2.5 MG/0.5ML(0.5%) NEB SOLN NEB SCH ×5 (06:15→22:21)
[2019-06-21] MEDS: ACCU-CHEK COMFORT CURVE STRIP VI SCH ×4 (06:39→22:21)
[2019-06-21] MEDS: InsuLIN REG 1unit/0.01ml Soln (100units/ml) SC SCH ×4 (06:39→22:25)
--- NOTE | 2019-06-21 07:21 | NUR ---
PATIENT SLEPT ALL NIGHT. WAS MEDICATED FOR CHEST PAIN ABOUT 0600
--- NOTE | 2019-06-21 07:30 | NUR ---
Opening Shift Note Assuming care of patient at this time. Patient is awake and alert. Patient denies pain at this time. Patient shows no signs or symptoms of distress or shortness of breath. Informed patient on the plan of care for today and to call for assistance as needed. Call light within reach. Will continue to round hourly and as needed.
[2019-06-21 08:30] VITALS: BP 126/64
[2019-06-21] MEDS: FLUTICASONE PROP NASAL SPR 0.05 % (50MCG) 16GM SCH (09:03)
[2019-06-21] MEDS: DOCUSATE SOD 100 MG CAP PO SCH (09:04)
[2019-06-21] MEDS: CLOPIDOGREL BISULFATE 75 MG TAB PO SCH (09:04)
[2019-06-21] MEDS: RANOLAZINE ER 500 MG TAB PO SCH ×2 (09:04→22:03)
[2019-06-21] MEDS: METOPROLOL TARTRATE 50 MG TAB PO SCH ×2 (09:05→22:00)
[2019-06-21] MEDS: ISOSORBIDE MONONITRATE ER 60 MG TAB PO SCH (09:06)
[2019-06-21] MEDS: PANTOPRAZOLE 40 MG TAB PO SCH (09:06)
--- NOTE | 2019-06-21 09:33 | NUR ---
Pain Patient is complaining of chest pain similar to "heartburn" that is 9/10. Will administer morphine according to patient's EMAR per patient's request.
[2019-06-21] MEDS: diphenhdrAMINE HCL 50 MG/1 ML VL IV PRN ×2 (09:34→22:09)
[2019-06-21] MEDS ORDERED: ENOXAPARIN SOD 40 MG/0.4 ML SYRINGE SC SCH (10:00)
--- NOTE | 2019-06-21 10:03 | NUR ---
Pain Reassessment Patient's pain is now 2/10. Patient appears comfortable. No distress noted.
[2019-06-21] MEDS: NTG 0.1MG/HR TOPICAL PATCH TD SCH (11:21)
--- NOTE | 2019-06-21 11:32 | NUR ---
Re: Patient's blood pressure Patient's blood pressure has decreased to 88/56. Removed patient's nitro patch. Informed Dr. Guzman. Received orders to give 500mL bolus.
[2019-06-21] MEDS ORDERED: ALUM & MAG HYDROX-SIMETH LIQ(MAALOX) 30 ML PO PRN (12:00)
[2019-06-21] MEDS ORDERED: SODIUM CHLORIDE 0.9% 500 ML IV ONE (12:00)
[2019-06-21 12:30] VITALS: BP 80/56
--- NOTE | 2019-06-21 13:52 | NUR ---
Reassessment of Blood Pressure Patient blood pressure is 92/53 at this time after bolus. aware.
[2019-06-21 17:00] VITALS: BP 107/72
--- NOTE | 2019-06-21 18:32 | NUR ---
Call to [facility] Call [facility] at this [facility]. [facility] transport arranged to picking tech patient at 0900 on 06/22/19.
--- NOTE | 2019-06-21 18:44 | NUR ---
Transfer Information [address], [facility] room #[address] [place] [address] (number for report) Accepting MD: Dr. Reid Transfer after morning shift tomorrow. Patient to arrive to [facility] at approximately 1000 per facility's request. Transport team to call 30 minutes before arrival and upon arrival. Transport team: Please call this number: [phone]. [facility] will pick[facility]up patient at 0900. Any questions about transfer: Conchis at [facility] Transfer Center,
--- NOTE | 2019-06-21 19:00 | NUR ---
Opening Shift Note Assumed care of patient, awake and alert. No S/S of distress/SOB or pain. Instructed on POC and to call for assist PRN, will continue to monitor for changes Q1hr and PRN.
--- NOTE | 2019-06-21 19:31 | NUR ---
Closing Shift Note Patient resting in bed. No distress noted. Report given. Will endorse care to the maintenance technician 2nd shift RN.
[2019-06-21 22:00] VITALS: BP 95/54
[2019-06-21] MEDS: ATORVASTATIN 20 MG TAB PO SCH (22:04)
[2019-06-21] MEDS: ZOLPIDEM TARTRATE 5 MG TAB PO PRN (23:32)
[2019-06-22 05:00] VITALS: BP 119/73
[2019-06-22] MEDS: MORPHINE SULF INJ 2 MG/ML SYRINGE 1ML IV PRN ×2 (06:28→09:16)
[2019-06-22] MEDS: GABAPENTIN 400 MG CAP PO SCH (06:28)
[2019-06-22] MEDS: FUROSEMIDE 100 MG/10ML VIAL IV SCH (06:28)
[2019-06-22] MEDS: diphenhdrAMINE HCL 50 MG/1 ML VL IV PRN ×2 (06:29→09:17)
[2019-06-22] MEDS: LEVOTHYROXINE SODIUM 50 MCG TAB PO SCH (06:30)
[2019-06-22] MEDS: ACCU-CHEK COMFORT CURVE STRIP VI SCH (07:00)
[2019-06-22] MEDS: InsuLIN REG 1unit/0.01ml Soln (100units/ml) SC SCH (07:00)
[2019-06-22] MEDS: IPRATROPIUM BROM 0.5 MG/2.5ML INH SOL NEB SCH (07:08)
[2019-06-22] MEDS: ALBUTEROL SULF 2.5 MG/0.5ML(0.5%) NEB SOLN NEB SCH (07:08)
--- NOTE | 2019-06-22 09:15 | NUR ---
MORNING MEDICATIONS GIVEN ORDERED. PATIENT REFUSED COLACE.
[2019-06-22] MEDS: NTG 0.1MG/HR TOPICAL PATCH TD SCH (09:24)
[2019-06-22] MEDS: ISOSORBIDE MONONITRATE ER 60 MG TAB PO SCH (09:24)
[2019-06-22] MEDS: PANTOPRAZOLE 40 MG TAB PO SCH (09:25)
[2019-06-22] MEDS: CLOPIDOGREL BISULFATE 75 MG TAB PO SCH (09:25)
[2019-06-22] MEDS: RANOLAZINE ER 500 MG TAB PO SCH (09:25)
--- NOTE | 2019-06-22 09:30 | NUR ---
PATIENT TRANSFERED TO [facility]IA [facility]; NO DISTRESS OR SOB, 3L N/C PATIENT SAT 98%. REPORT CALLED TO BRITTANY GARCAI AT [facility].
[2019-06-22] MEDS: METOPROLOL TARTRATE 50 MG TAB PO SCH (10:00)
[2019-06-22] MEDS: DOCUSATE SOD 100 MG CAP PO SCH (10:00)
[2019-06-22] MEDS: FLUTICASONE PROP NASAL SPR 0.05 % (50MCG) 16GM SCH (10:00)
== END 2019-06-22 09:30 | disposition short-term general hospital (02) | DRG 281 ==
LOC: ER 12:41 → EDBD 12:41 → TELE 12:42 → TELE-CENTR 15:35
PROVIDERS: ADMIT Hospitalist; ATTEND Internal Medicine
DX: I21.4 Non-ST elevation (NSTEMI) myocardial infarction (principal); I16.9 Hypertensive crisis, unspecified; E44.0 Moderate protein-calorie malnutrition; J44.1 Chronic obstructive pulmonary disease with (acute) exacerbation; I25.110 Atherosclerotic heart disease of native coronary artery with unstable angina pectoris; M79.18 Myalgia, other site; E66.9 Obesity, unspecified; D63.8 Anemia in other chronic diseases classified elsewhere; Z95.1 Presence of aortocoronary bypass graft; I11.0 Hypertensive heart disease with heart failure; E03.9 Hypothyroidism, unspecified; D63.1 Anemia in chronic kidney disease; G89.29 Other chronic pain; E78.5 Hyperlipidemia, unspecified; K21.9 Gastro-esophageal reflux disease without esophagitis; I50.9 Heart failure, unspecified; E11.9 Type 2 diabetes mellitus without complications; D50.9 Iron deficiency anemia, unspecified; Z79.84 Long term (current) use of oral hypoglycemic drugs; Z86.73 Personal history of transient ischemic attack (TIA), and cerebral infarction without residual deficits; Z79.02 Long term (current) use of antithrombotics/antiplatelets; Z79.899 Other long term (current) drug therapy; Z85.3 Personal history of malignant neoplasm of breast; Z88.6 Allergy status to analgesic agent; Z90.710 Acquired absence of both cervix and uterus; Z90.49 Acquired absence of other specified parts of digestive tract; Z98.51 Tubal ligation status; Z98.61 Coronary angioplasty status; Z68.30 Body mass index [BMI] 30.0-30.9, adult; Z91.018 Allergy to other foods; Z88.8 Allergy status to other drugs, medicaments and biological substances
CPT/HCPCS: 36415; 71045; 80048; 80053; 80061; 82550; 82962; 83036; 83735; 84100; 84484; 85025; 85610; 85730; 93005; 94640; 96374; 96375; G0378; J1815; J2405; J3490

== ENCOUNTER 2019-08-12 15:13 | Inpatient (IN) | payer MEDICARE, MEDICAID ==
[~2019-08-12] VITALS: Ht 157.5 cm; Wt 77.5 kg
[2019-08-12] MEDS ORDERED: ONDANSETRON HCL 4 MG/2 ML VIAL IV ONE (15:45)
[2019-08-12] MEDS ORDERED: MORPHINE SULFATE 4 MG/ML SYR/VIAL IV ONE (15:45)
[2019-08-12 16:16] LABS: Basophils # (auto) 0 10 ^3/uL (0-0.2); Basophils % (auto) 0.8 % (0.0-2.0); Eosinophils # (auto) 0.1 10 ^3/uL (0-0.8); Eosinophils % (auto) 2.2 % (0.0-7.0); Hematocrit 35.4 % (36.0-46.0); Hemoglobin 11.3 g/dL (12.2-16.2); Lymphocytes # (auto) 1.5 10 ^3/uL (0.4-5.4); Lymphocytes % (auto) 25.1 % (10.0-50.0); Mean Corpuscular Hemoglobin 28.7 pg (28.0-32.0); Mean Corpuscular Volume 89.7 fL (80.0-100.0); Monocytes # (auto) 0.6 10 ^3/uL (0-1.3); Monocytes % (auto) 10.1 % (0.0-12.0); Neutrophils # (auto) 3.7 10 ^3/uL (1.6-8.6); Neutrophils % (auto) 61.8 % (37.0-80.0); Platelet Count (auto) 254 10^3/uL (140-450); Red Blood Cells 3.95 10^6/uL (4.0-5.20); Red Cell Distribution Width 13.2 % (11.8-14.3); White Blood Cell 5.9 10^3/uL (4.4-10.8)
[2019-08-12 16:37] LABS: Albumin 3.5 g/dL (3.4-5.0); Anion Gap 7 (5-15); Blood Urea Nitrogen 20 mg/dL (7-18); Calcium 8.7 mg/dL (8.5-10.1); Carbon Dioxide 25 mmol/L (21-32); Chloride 109 mmol/L (98-107); Glucose 83 mg/dL (74-106); Magnesium 2.2 mg/dL (1.6-2.6); Potassium 4.2 mmol/L (3.5-5.1); Sodium 141 mmol/L (136-145)
[2019-08-12 16:43] LABS: Alanine Aminotransferase 23 U/L (13-56); Alkaline Phosphatase 108 U/L (45-117); Aspartate Aminotransferase 19 U/L (15-37); BUN/Creatinine Ratio 16.5; Bilirubin, Total 0.2 mg/dL (0.2-1.0); GFR African American 58 mL/min; GFR Non-African American 48 mL/min; Total Protein 7.1 g/dL (6.4-8.2)
[2019-08-12 18:58] VITALS: BP 144/81
[2019-08-12] MEDS: diphenhdrAMINE HCL 25 MG CAP PO SCH ×2 (19:39→22:13)
--- NOTE | 2019-08-12 20:29 | NUR ---
MS admit from ER FRANK DIAZ admitted to tele/MS. Patient oriented to CORNELIO RAI RN primary RN, unit, room, bed, and unit policies regarding patient care and visiting hours. Patient weighed by bed scale and encouraged to call if they need something. All questions and concerns addressed, patient verbalized understanding. Note: IV at L. Forearm 22g, Tele box 50.
[2019-08-12 22:00] VITALS: BP 141/85
[2019-08-12] MEDS: ZOLPIDEM TARTRATE 5 MG TAB PO SCH (22:12)
[2019-08-12] MEDS: CYCLOBENZAPRINE HCL 10 MG TAB PO SCH (22:13)
[2019-08-12] MEDS: NITROGLYCERIN 0.4 MG SL TAB SL PRN ×3 (22:17→22:30)
[2019-08-12] MEDS: MORPHINE SULF INJ 2 MG/ML SYRINGE 1ML IV PRN (22:38)
--- NOTE | 2019-08-12 23:30 | NUR ---
Chest pain Patient reported chest pain in 20 min after arrival. Pain 9 out of 10. Patient was placed on oxygen 2 lpm via NC. That did not change the patient condition. Per hospital protocol ECG was done and vital signs were taken BP 153/71 mmHg HR 60 bpm. First dose of nitro was given at 8. At 4 patient was assessed for chest pain and reported no changes. ECG was done and vital taken BP 135/71 mmHg HR 64 bpm. Second dose of Nitro was given. Patient assessed for pain at 2219. No changes in pain reported. Pain 9 out of 10. ECG done, vital taken. BP 140/77 mmHg, HR 70 bpm. Third dose was given at 2221. Next chest pain assessment was done, patient reported the same level of pain. Following hospital protocol 2 mg of Morphine was given IV at 2237. Reassessment was done in 30 min. Patient reported decrease in chest pain to 2 out of 10 and new onset of neck pain 8 out of 10. Will page to hospitalist to get prescription for analgetics. Patient is asleep right now. No S/S of respiratory distress or pain is noted. Will continue to monitor Q1H and/or PRN.
[2019-08-13] VITALS (7 sets, daily range): BP systolic 105–156; BP diastolic 66–88
[2019-08-13] MEDS ORDERED: ACETAMINOPHEN 325 MG TAB PO PRN (01:00)
[2019-08-13] MEDS ORDERED: DEXTROSE (50%) 50ML SYRG IV PRN (01:00)
[2019-08-13] MEDS: CYCLOBENZAPRINE HCL 10 MG TAB PO SCH ×3 (06:46→21:47)
[2019-08-13] MEDS: ACCU-CHEK COMFORT CURVE STRIP VI SCH ×4 (06:47→21:47)
[2019-08-13] MEDS: InsuLIN REG 1unit/0.01ml Soln (100units/ml) SC SCH ×4 (06:47→21:50)
[2019-08-13] MEDS ORDERED: LEVOTHYROXINE SODIUM 100 MCG TAB PO SCH (07:00)
[2019-08-13] MEDS: PANTOPRAZOLE 40 MG TAB PO SCH (09:54)
[2019-08-13] MEDS: CLOPIDOGREL BISULFATE 75 MG TAB PO SCH (09:54)
[2019-08-13] MEDS: GABAPENTIN 400 MG CAP PO SCH (09:56)
[2019-08-13] MEDS: ISOSORBIDE MONONITRATE ER 60 MG TAB PO SCH (09:56)
[2019-08-13] MEDS: NITROGLYCERIN 0.4MG/HR TOPICAL PATCH TD SCH (09:57)
[2019-08-13] MEDS: MORPHINE SULF INJ 2 MG/ML SYRINGE 1ML IV PRN ×3 (11:32→19:51)
[2019-08-13] MEDS: diphenhdrAMINE HCL 25 MG CAP PO SCH ×2 (11:32→21:46)
--- NOTE | 2019-08-13 16:52 | NUR ---
[id number] 08/13/19 - Faxed to [phone] [facility] transfer center,face sheet, transfer order for higher level of care, H/P, labs, meds. Contacted transfer center at [phone] and left message with contact information. Placed patient on [facility] will call list. Accepting provider is Dr Reid, awaiting bed assignment.
[2019-08-13 17:25] LABS: Urine Bacteria NONE SEEN /hpf (None Seen); Urine Blood Negative /uL (Negative); Urine Mucus FEW (None Seen); Urine Specific Gravity 1.008 (1.001-1.035); Urine WBC 1 /hpf (0 - 5)
[2019-08-13] MEDS ORDERED: LEVO125T7 PO (20:11)
[2019-08-13] MEDS ORDERED: GABA400C11 PO (20:11)
[2019-08-13] MEDS ORDERED: CYA100I IM (20:12)
--- NOTE | 2019-08-13 20:30 | NUR ---
Call from [facility]. Got transfer information for patient. Waiting to get the okay from [facility] doctor. Accepting MD is Dr. Reid. Waiting for bed and an answer to finalize transfer. If no bed is available, [facility] will be in contact with for more information on patient and transfer status. Will continue to monitor patient.
[2019-08-13] MEDS: IPRATROPIUM BROM 0.5 MG/2.5ML INH SOL NEB PRN (21:45)
[2019-08-13] MEDS: ALBUTEROL SULF 2.5 MG/0.5ML(0.5%) NEB SOLN NEB PRN (21:45)
[2019-08-13] MEDS: ZOLPIDEM TARTRATE 5 MG TAB PO SCH (21:46)
[2019-08-13] MEDS: RANOLAZINE ER 500 MG TAB PO SCH (21:47)
--- NOTE | 2019-08-13 22:53 | NUR ---
Opening Shift Note Assumed care of patient, awake and alert. No S/S of distress/SOB. patient complains of pain 7/10 in her generalized chest region. Patient in the lowest possible position with bed rails up x2 and call light within reach. Instructed on POC and to call for assist PRN, will continue to monitor for changes Q1hr and PRN. Addendum: 08/13/19 at 0537 by Quin Wall RN 1899
[2019-08-14] MEDS: MORPHINE SULF INJ 2 MG/ML SYRINGE 1ML IV PRN ×3 (03:16→17:01)
[2019-08-14] MEDS: ALBUTEROL SULF 2.5 MG/0.5ML(0.5%) NEB SOLN NEB PRN ×2 (03:20→15:51)
[2019-08-14] MEDS: IPRATROPIUM BROM 0.5 MG/2.5ML INH SOL NEB PRN ×2 (03:20→15:51)
[2019-08-14 05:00] VITALS: BP 113/64
[2019-08-14] MEDS: CYCLOBENZAPRINE HCL 10 MG TAB PO SCH ×2 (06:13→14:29)
[2019-08-14] MEDS: ACCU-CHEK COMFORT CURVE STRIP VI SCH ×3 (06:14→18:00)
[2019-08-14] MEDS: InsuLIN REG 1unit/0.01ml Soln (100units/ml) SC SCH ×3 (06:14→17:00)
[2019-08-14] MEDS ORDERED: LEVOTHYROXINE SODIUM 50 MCG TAB PO SCH (07:00)
[2019-08-14 08:00] VITALS: BP 151/73
[2019-08-14] MEDS: diphenhdrAMINE HCL 25 MG CAP PO SCH (09:34)
[2019-08-14] MEDS: CLOPIDOGREL BISULFATE 75 MG TAB PO SCH (09:34)
[2019-08-14] MEDS: GABAPENTIN 400 MG CAP PO SCH (09:34)
[2019-08-14] MEDS: PANTOPRAZOLE 40 MG TAB PO SCH (09:34)
[2019-08-14] MEDS: RANOLAZINE ER 500 MG TAB PO SCH (09:35)
[2019-08-14] MEDS: ISOSORBIDE MONONITRATE ER 60 MG TAB PO SCH (09:36)
[2019-08-14] MEDS: NITROGLYCERIN 0.4MG/HR TOPICAL PATCH TD SCH (09:37)
[2019-08-14 12:00] VITALS: BP 135/78
--- NOTE | 2019-08-14 14:21 | NUR ---
1420 08/14/19 Contacted by [facility] accounts receivable coordinator Conchis who provide the following information, patient has been assigned bed 5[address], please send CD with patient, please call [phone] to give report. Due to COVID the ambulance can only enter through [facility] the address is [address] [place] [id number]. Ambulance team needs to call [phone] 30 mins before arrival. Must stay in ambulance until given further instructions. Conchis did confirmed receipt of Transfer Back Agreement. Provided all of the above information with nurse caring for patient as well as [facility] transport service.
--- NOTE | 2019-08-14 16:30 | NUR ---
CALLED REPORT TO LEXA Fermin AT [facility]
[2019-08-14 17:00] VITALS: BP 123/66
--- NOTE | 2019-08-14 19:50 | NUR ---
Spoke to Jennifer ([facility] Staff) and confirmed that its OK to do Covid test in their facility
[2019-08-14 20:00] VITALS: BP 141/75
--- NOTE | 2019-08-14 20:10 | NUR ---
Pt being trans to another hosp Order obtained for transfer of FRANK DIAZ to [facility]. Report called/given to Clau by day shift RN. Report given to EMS transport team. Medication reconciliation form completed and copy given to patient. Telebox returned to ICU. Transported via gurney along with copied chart and imaging films/disk and all personal belongings. No distress noted on time of departure. Denver Pablo notified of destination and room number, verbalized understanding.
== END 2019-08-14 20:10 | disposition short-term general hospital (02) | DRG 303 ==
LOC: ER 15:13 → TELE 15:14 → TELE-WESTW 20:21
PROVIDERS: ADMIT Nurse Practitioner Acute Care; ATTEND Internal Medicine
DX: I25.119 Atherosclerotic heart disease of native coronary artery with unspecified angina pectoris (principal); E11.40 Type 2 diabetes mellitus with diabetic neuropathy, unspecified; G89.29 Other chronic pain; I11.0 Hypertensive heart disease with heart failure; E03.9 Hypothyroidism, unspecified; J44.9 Chronic obstructive pulmonary disease, unspecified; K21.9 Gastro-esophageal reflux disease without esophagitis; M54.9 Dorsalgia, unspecified; E78.5 Hyperlipidemia, unspecified; Z95.1 Presence of aortocoronary bypass graft; Z95.5 Presence of coronary angioplasty implant and graft; Z86.73 Personal history of transient ischemic attack (TIA), and cerebral infarction without residual deficits; Z90.710 Acquired absence of both cervix and uterus; Z79.84 Long term (current) use of oral hypoglycemic drugs; Z79.899 Other long term (current) drug therapy; Z80.3 Family history of malignant neoplasm of breast; Z82.3 Family history of stroke; Z82.49 Family history of ischemic heart disease and other diseases of the circulatory system; Z83.3 Family history of diabetes mellitus; Z88.6 Allergy status to analgesic agent; Z91.018 Allergy to other foods; Z98.51 Tubal ligation status; I50.9 Heart failure, unspecified
CPT/HCPCS: 36415; 71046; 80053; 81001; 82962; 83735; 83880; 84439; 84443; 84484; 85025; 85379; 87081; 87086; 93005; 94640; 99291; G0378; J1815; J2405

== ENCOUNTER 2019-08-31 13:38 | Inpatient (IN) | payer MEDICARE, MEDICAID ==
[~2019-08-31] VITALS: Ht 157.5 cm; Wt 64.8 kg
[~2019-08-31 13:38] MED LIST changes: +CYA100I IM; -GABA300C10 PO; +GABA400C11 PO; -LEVO100C2 PO; +LEVO125T7 PO
[2019-08-31 14:49] LABS: Basophils # (auto) 0.1 10 ^3/uL (0-0.2); Basophils % (auto) 0.8 % (0.0-2.0); Eosinophils # (auto) 0.2 10 ^3/uL (0-0.8); Eosinophils % (auto) 2.3 % (0.0-7.0); Hematocrit 38.1 % (36.0-46.0); Hemoglobin 12.4 g/dL (12.2-16.2); Lymphocytes # (auto) 1.7 10 ^3/uL (0.4-5.4); Lymphocytes % (auto) 23.9 % (10.0-50.0); Mean Corpuscular Hemoglobin 29.3 pg (28.0-32.0); Mean Corpuscular Hgb Conc. 32.5 g/dL (32.0-36.0); Mean Corpuscular Volume 90.2 fL (80.0-100.0); Monocytes # (auto) 0.7 10 ^3/uL (0-1.3); Monocytes % (auto) 9.7 % (0.0-12.0); Neutrophils # (auto) 4.5 10 ^3/uL (1.6-8.6); Neutrophils % (auto) 63.3 % (37.0-80.0); Nucleated Red Blood Cells % 0.1 %; Platelet Count (auto) 333 10^3/uL (140-450); Red Blood Cells 4.23 10^6/uL (4.0-5.20); Red Cell Distribution Width 13.7 % (11.8-14.3); White Blood Cell 7.1 10^3/uL (4.4-10.8)
[2019-08-31 15:12] LABS: Albumin 3.2 g/dL (3.4-5.0); Anion Gap 4 (5-15); Blood Urea Nitrogen 18 mg/dL (7-18); Calcium 9.1 mg/dL (8.5-10.1); Carbon Dioxide 26 mmol/L (21-32); Chloride 108 mmol/L (98-107); Glucose 93 mg/dL (74-106); Potassium 4.1 mmol/L (3.5-5.1); Sodium 138 mmol/L (136-145)
[2019-08-31 15:17] LABS: Alanine Aminotransferase 18 U/L (13-56); Alkaline Phosphatase 117 U/L (45-117); Aspartate Aminotransferase 20 U/L (15-37); BUN/Creatinine Ratio 17.3; Bilirubin, Total 0.2 mg/dL (0.2-1.0); GFR African American 69 mL/min; GFR Non-African American 57 mL/min; Total Protein 7.4 g/dL (6.4-8.2)
[2019-08-31] MEDS ORDERED: MORPHINE SULFATE 4 MG/ML SYR/VIAL IV ONE (17:15)
[2019-08-31] MEDS ORDERED: ONDANSETRON HCL 4 MG/2 ML VIAL IV ONE (17:15)
[2019-08-31] MEDS ORDERED: ACETAMINOPHEN 325 MG TAB PO PRN (21:15)
[2019-08-31] MEDS ORDERED: DOCUSATE SOD 100 MG CAP PO PRN (21:15)
[2019-08-31] MEDS ORDERED: ONDANSETRON HCL 4 MG/2 ML VIAL IV PRN (21:15)
[2019-08-31] MEDS ORDERED: FUROSEMIDE 20 MG TAB PO PRN (21:15)
[2019-08-31] MEDS ORDERED: DEXTROSE (50%) 50ML SYRG IV PRN (21:15)
[2019-08-31] MEDS ORDERED: LORazepam 0.5 MG TAB PO PRN (21:15)
[2019-08-31] MEDS ORDERED: TEMAZEPAM 15 MG CAP PO PRN (21:15)
[2019-08-31] MEDS ORDERED: MORPHINE SULF INJ 2 MG/ML SYRINGE 1ML IV PRN (21:15)
[2019-08-31] MEDS ORDERED: ZOLPIDEM TARTRATE 5 MG TAB PO SCH (22:00)
[2019-09-01] VITALS (8 sets, daily range): BP systolic 95–195; BP diastolic 57–79
--- NOTE | 2019-09-01 00:05 | NUR ---
Patient arrived to unit from the emergency department via wheelchair. She is AO x4 and ambulatory without assistance. She does have her own cane that she brought from home. She does not complain of any chest pain or shortness of breath at the moment. She is currently on 3L NC as she stated she uses this at home. Upon assessing her I found that the IV she had to her left axillary was dislodged completely. Will reestablish IV access. Bed is locked in lowest position with side rails up x2. Will continue to monitor.
[2019-09-01] MEDS: CYCLOBENZAPRINE HCL 10 MG TAB PO SCH ×3 (00:20→14:50)
[2019-09-01] MEDS: GABAPENTIN 400 MG CAP PO SCH ×3 (00:20→14:50)
[2019-09-01] MEDS: ACCU-CHEK COMFORT CURVE STRIP VI SCH ×4 (00:21→19:06)
[2019-09-01] MEDS: RANOLAZINE ER 500 MG TAB PO SCH ×2 (00:21→10:00)
[2019-09-01] MEDS: InsuLIN REG 1unit/0.01ml Soln (100units/ml) SC SCH ×4 (00:22→19:07)
[2019-09-01] MEDS ORDERED: cloNIDine HCL 0.1 MG TAB PO PRN (00:30)
--- NOTE | 2019-09-01 00:35 | NUR ---
Received callback from MD Durant regarding patient elevated blood pressure of 195/79 with a heart rate of 62. Orders received for 0.2 clonidine TID PRN SBP 160+.
[2019-09-01] MEDS ORDERED: cloNIDine HCL 0.1 MG TAB ONE (00:38)
--- NOTE | 2019-09-01 01:40 | NUR ---
IV insertion IV access obtained, via clean sterile technique by inserting 22 gauge catheter at left forearm after 3 attempts. IV secured properly. No trauma to site. Patient tolerated procedure well.
[2019-09-01] MEDS ORDERED: OXYCODONE W/ ACETAMINOPHEN 5/325MG TABLET PO PRN (04:15)
[2019-09-01] MEDS ORDERED: LEVOTHYROXINE SODIUM 50 MCG TAB PO SCH (06:00)
[2019-09-01 06:02] LABS: Basophils # (auto) 0.1 10 ^3/uL (0-0.2); Basophils % (auto) 0.9 % (0.0-2.0); Eosinophils # (auto) 0.1 10 ^3/uL (0-0.8); Eosinophils % (auto) 2.1 % (0.0-7.0); Hematocrit 32.9 % (36.0-46.0); Hemoglobin 10.6 g/dL (12.2-16.2); Lymphocytes # (auto) 1.7 10 ^3/uL (0.4-5.4); Lymphocytes % (auto) 29.4 % (10.0-50.0); Mean Corpuscular Hgb Conc. 32.3 g/dL (32.0-36.0); Mean Corpuscular Volume 89.8 fL (80.0-100.0); Monocytes # (auto) 0.6 10 ^3/uL (0-1.3); Monocytes % (auto) 10.2 % (0.0-12.0); Neutrophils # (auto) 3.4 10 ^3/uL (1.6-8.6); Neutrophils % (auto) 57.4 % (37.0-80.0); Platelet Count (auto) 281 10^3/uL (140-450); Red Blood Cells 3.66 10^6/uL (4.0-5.20); Red Cell Distribution Width 13.9 % (11.8-14.3); White Blood Cell 5.9 10^3/uL (4.4-10.8)
[2019-09-01 06:37] LABS: BUN/Creatinine Ratio 20.5; Calcium 8.5 mg/dL (8.5-10.1)
[2019-09-01] MEDS: MORPHINE SULF INJ 2 MG/ML SYRINGE 1ML IV PRN ×3 (07:06→19:06)
--- NOTE | 2019-09-01 07:30 | NUR ---
Opening Note Assumed patient care from TAMMY RN.
--- NOTE | 2019-09-01 09:00 | NUR ---
Chest Pain Chest pain protocol initiated.
[2019-09-01] MEDS: NITROGLYCERIN 0.4 MG SL TAB SL PRN ×2 (09:06→09:15)
[2019-09-01] MEDS ORDERED: LOSARTAN POTASSIUM 50 MG TAB PO SCH (10:00)
[2019-09-01] MEDS ORDERED: PRAVASTATIN SODIUM 20 MG TAB PO SCH (10:00)
[2019-09-01] MEDS ORDERED: METOPROLOL SUCCINATE XL 50 MG TAB PO SCH (10:00)
[2019-09-01] MEDS ORDERED: CLOPIDOGREL BISULFATE 75 MG TAB PO SCH (10:00)
[2019-09-01] MEDS ORDERED: ISOSORBIDE MONONITRATE ER 60 MG TAB PO SCH (10:00)
[2019-09-01] MEDS ORDERED: PANTOPRAZOLE 40 MG TAB PO SCH (10:00)
[2019-09-01] MEDS ORDERED: MOBIC 7.5 MG PO SCH (10:00)
--- NOTE | 2019-09-01 11:31 | NUR ---
at Bedside Dr. Messer at bedside discussing plan of care with patient. Per MD, continue ACS protocol, new orders received.
--- NOTE | 2019-09-01 12:05 | NUR ---
assessment Patient is a 63 year old female who is alert and oriented. Patients cognitive abilities are intact. Prior to admission patient lived home with family and functioned with assistance. Per patient she has a rollator, cane, wheelchair, and oxygen for home use. Patients PCP is Dr Guzman. Patient informed me she has a [facility] caregiver Nereyda Sands for 4 hours per day. Patient is aware of her consult for needing a new rollator. Patient informed me her rollator is old and she needs a new one. I have informed bedside Rn of the need for an order for rollator. I informed patient she has a right to speak to a vp digital marketing social media and crm regarding all care. I informed patient she has a right to participate in any and all discharge planning. Patient does not have a POA and advanced directive. I have offered patient information on POA and advanced directives. I informed the patient the advantages and benefits of having an Advanced Directive. Patient verbalized understanding and agreed to discharge plan. Addendum: 09/01/19 at 1207 by Leana JARVIS Amended: Links added.
--- NOTE | 2019-09-01 16:08 | NUR ---
D/C planning Regarding social service consult for walker. Faxed clinical information to Abiel. Per Domi with [facility] [phone] walker will be deliver to bed side or front lobby at 16:30. Informed BRITTANY Shaffer.
--- NOTE | 2019-09-01 16:30 | NUR ---
Called Per Dr. Guzman, hold discharge at this time. Addendum: 09/01/19 at 2015 by BOLIVAR LOREDO RN RN Pending Troponin levels.
--- NOTE | 2019-09-01 19:20 | NUR ---
Opening Shift Note Assumed care of patient, awake and alert. No S/S of distress/SOB or pain. Instructed on POC and to call for assist PRN, will continue to monitor for changes Q1hr and PRN. Bed locked in lowest position with two side rails up and call light in reach.
--- NOTE | 2019-09-01 19:30 | NUR ---
Closing Note Report given to TAMMY SOTO.
--- NOTE | 2019-09-01 20:40 | NUR ---
Discharge instructions given as ordered. Encourage to follow up with PMD as instructed. All questions and concerns addressed. Patient verbalized understanding. Medication reconciliation form completed and copy given to patient. . IV removed with catheter intact, pressure dressing applied. Telemetry unit returned to ICU. Patient taken to vehicle via wheelchair with all personal belongings, accompanied by staff. No distress noted at time of departure.
== END 2019-09-01 20:40 | disposition home or self-care (01) | DRG 303 ==
LOC: ER 13:38 → TELE-WESTW 13:39 → TELE 13:39 → UNDOADMIN 13:39
PROVIDERS: ADMIT Hospitalist; ATTEND Internal Medicine
DX: I25.119 Atherosclerotic heart disease of native coronary artery with unspecified angina pectoris (principal); E11.51 Type 2 diabetes mellitus with diabetic peripheral angiopathy without gangrene; E78.5 Hyperlipidemia, unspecified; I11.0 Hypertensive heart disease with heart failure; K21.9 Gastro-esophageal reflux disease without esophagitis; I50.9 Heart failure, unspecified; E03.9 Hypothyroidism, unspecified; J44.9 Chronic obstructive pulmonary disease, unspecified; Z80.3 Family history of malignant neoplasm of breast; Z82.49 Family history of ischemic heart disease and other diseases of the circulatory system; Z83.3 Family history of diabetes mellitus; Z82.3 Family history of stroke; Z86.73 Personal history of transient ischemic attack (TIA), and cerebral infarction without residual deficits; Z90.710 Acquired absence of both cervix and uterus; Z95.1 Presence of aortocoronary bypass graft; Z95.5 Presence of coronary angioplasty implant and graft; Z88.6 Allergy status to analgesic agent; Z91.018 Allergy to other foods; Z90.49 Acquired absence of other specified parts of digestive tract; Z98.51 Tubal ligation status
CPT/HCPCS: 36415; 71046; 80048; 80053; 80061; 82962; 83036; 84484; 85025; 87081; 93005; G0378; J1815; J2405

== ENCOUNTER 2019-11-02 21:51 | Emergency (ER) | payer MEDICARE, MEDICAID ==
[~2019-11-02] VITALS: Ht 157.5 cm; Wt 70.3 kg
[2019-11-02 23:17] LABS: Basophils # (auto) 0 10 ^3/uL (0-0.2); Basophils % (auto) 0.5 % (0.0-2.0); Eosinophils # (auto) 0.1 10 ^3/uL (0-0.8); Eosinophils % (auto) 1.5 % (0.0-7.0); Hemoglobin 11.4 g/dL (12.2-16.2); Lymphocytes # (auto) 1.7 10 ^3/uL (0.4-5.4); Lymphocytes % (auto) 27.3 % (10.0-50.0); Mean Corpuscular Hemoglobin 27.8 pg (28.0-32.0); Mean Corpuscular Hgb Conc. 31.6 g/dL (32.0-36.0); Monocytes # (auto) 0.5 10 ^3/uL (0-1.3); Monocytes % (auto) 8.6 % (0.0-12.0); Neutrophils # (auto) 3.9 10 ^3/uL (1.6-8.6); Neutrophils % (auto) 62.1 % (37.0-80.0); Nucleated Red Blood Cells % 0.1 %; Platelet Count (auto) 324 10^3/uL (140-450); Red Blood Cells 4.09 10^6/uL (4.0-5.20); Red Cell Distribution Width 14.9 % (11.8-14.3); White Blood Cell 6.3 10^3/uL (4.4-10.8)
[2019-11-02 23:34] LABS: Albumin 3.6 g/dL (3.4-5.0); Anion Gap 5 (5-15); Blood Urea Nitrogen 12 mg/dL (7-18); Carbon Dioxide 27 mmol/L (21-32); Chloride 107 mmol/L (98-107); Glucose 104 mg/dL (74-106); Potassium 3.7 mmol/L (3.5-5.1); Sodium 139 mmol/L (136-145)
[2019-11-02 23:39] LABS: Alanine Aminotransferase 15 U/L (13-56); Alkaline Phosphatase 116 U/L (45-117); Aspartate Aminotransferase 16 U/L (15-37); BUN/Creatinine Ratio 12.9; Bilirubin, Total 0.3 mg/dL (0.2-1.0); GFR African American 78 mL/min; GFR Non-African American 65 mL/min; Total Protein 7.5 g/dL (6.4-8.2)
[2019-11-02 23:46] LABS: INR 0.98 (0.9-1.15); Partial Thromboplastin Time 24.2 sec (23.0-31.2)
[2019-11-03] MEDS ORDERED: IOHEXOL 350 MG/ML 100ML IJ ONE (00:21)
[2019-11-03 02:55] VITALS: BP 145/66
== END 2019-11-03 04:32 | disposition home or self-care (01) ==
LOC: ER 21:52
DX: M79.662 Pain in left lower leg (principal); R07.89 Other chest pain; G89.29 Other chronic pain; J44.9 Chronic obstructive pulmonary disease, unspecified; I11.0 Hypertensive heart disease with heart failure; I50.9 Heart failure, unspecified; I25.10 Atherosclerotic heart disease of native coronary artery without angina pectoris; E11.9 Type 2 diabetes mellitus without complications; K21.9 Gastro-esophageal reflux disease without esophagitis; E78.5 Hyperlipidemia, unspecified; I25.2 Old myocardial infarction; E07.9 Disorder of thyroid, unspecified
CPT/HCPCS: 36415; 71045; 71275; 80053; 84484; 85025; 85379; 85610; 85730; 93005; 93971; 99285; Q9967

== ENCOUNTER → 2019-12-31 | Outpatient (CLI) | payer MEDICARE, MEDICAID ==
[2019-12-31 10:42] LABS: Urine Bacteria NONE SEEN /hpf (None Seen); Urine Blood Negative /uL (Negative); Urine Specific Gravity 1.016 (1.001-1.035); Urine WBC 135 /hpf (0 - 5)
[2019-12-31 10:51] LABS: Basophils # (auto) 0.1 10 ^3/uL (0-0.2); Basophils % (auto) 0.9 % (0.0-2.0); Eosinophils # (auto) 0.1 10 ^3/uL (0-0.8); Eosinophils % (auto) 0.8 % (0.0-7.0); Hematocrit 43.5 % (36.0-46.0); Hemoglobin 13.8 g/dL (12.2-16.2); Lymphocytes # (auto) 1.8 10 ^3/uL (0.4-5.4); Lymphocytes % (auto) 19.3 % (10.0-50.0); Mean Corpuscular Hemoglobin 27.9 pg (28.0-32.0); Mean Corpuscular Hgb Conc. 31.8 g/dL (32.0-36.0); Mean Corpuscular Volume 87.7 fL (80.0-100.0); Monocytes # (auto) 0.6 10 ^3/uL (0-1.3); Monocytes % (auto) 6.9 % (0.0-12.0); Neutrophils # (auto) 6.5 10 ^3/uL (1.6-8.6); Neutrophils % (auto) 72.1 % (37.0-80.0); Nucleated Red Blood Cells % 0.2 %; Platelet Count (auto) 334 10^3/uL (140-450); Red Blood Cells 4.96 10^6/uL (4.0-5.20); Red Cell Distribution Width 15.8 % (11.8-14.3); White Blood Cell 9.1 10^3/uL (4.4-10.8)
[2019-12-31 11:04] LABS: Albumin 4.1 g/dL (3.4-5.0); Calcium 9.6 mg/dL (8.5-10.1); Potassium 4.3 mmol/L (3.5-5.1)
[2019-12-31 11:08] LABS: BUN/Creatinine Ratio 15.9; Bilirubin, Total 0.5 mg/dL (0.2-1.0); Total Protein 8.5 g/dL (6.4-8.2)
== END | disposition home or self-care (01) ==
LOC: LAB 09:58
PROVIDERS: ATTEND Internal Medicine
DX: I25.10 Atherosclerotic heart disease of native coronary artery without angina pectoris (principal); E11.40 Type 2 diabetes mellitus with diabetic neuropathy, unspecified; I10 Essential (primary) hypertension; E03.9 Hypothyroidism, unspecified
CPT/HCPCS: 36415; 80053; 80061; 81001; 82043; 83036; 84439; 84443; 85025

== ENCOUNTER → 2020-03-24 | Outpatient (CLI) | payer MEDICARE, MEDICAID ==
[~2020-03-24] MED LIST changes: -CLOP75TA41 PO; +CLOP75TA70 PO; -NITR0.4D3 TD; +NITR0.4D5 TD; -ZOLP-158 PO; +ZOLP5TAB PO
[2020-03-24 14:16] LABS: Basophils # (auto) 0.1 10 ^3/uL (0-0.2); Basophils % (auto) 0.8 % (0.0-2.0); Eosinophils # (auto) 0.1 10 ^3/uL (0-0.8); Eosinophils % (auto) 1.6 % (0.0-7.0); Hematocrit 34.7 % (36.0-46.0); Hemoglobin 11.2 g/dL (12.2-16.2); Lymphocytes # (auto) 1.7 10 ^3/uL (0.4-5.4); Lymphocytes % (auto) 27.5 % (10.0-50.0); Mean Corpuscular Hemoglobin 28.1 pg (28.0-32.0); Mean Corpuscular Hgb Conc. 32.1 g/dL (32.0-36.0); Mean Corpuscular Volume 87.3 fL (80.0-100.0); Monocytes # (auto) 0.6 10 ^3/uL (0-1.3); Monocytes % (auto) 9.7 % (0.0-12.0); Neutrophils # (auto) 3.7 10 ^3/uL (1.6-8.6); Neutrophils % (auto) 60.4 % (37.0-80.0); Nucleated Red Blood Cells % 0.1 %; Platelet Count (auto) 331 10^3/uL (140-450); Red Blood Cells 3.97 10^6/uL (4.0-5.20); Red Cell Distribution Width 14.3 % (11.8-14.3); White Blood Cell 6.1 10^3/uL (4.4-10.8)
[2020-03-24 14:23] LABS: Urine Bacteria NONE SEEN /hpf (None Seen); Urine Blood Negative /uL (Negative); Urine Specific Gravity 1.014 (1.001-1.035); Urine WBC 14 /hpf (0 - 5)
[2020-03-24 14:41] LABS: Albumin 3.7 g/dL (3.4-5.0)
[2020-03-24 14:47] LABS: BUN/Creatinine Ratio 18.8; Bilirubin, Total 0.4 mg/dL (0.2-1.0); Total Protein 8.1 g/dL (6.4-8.2)
== END | disposition home or self-care (01) ==
LOC: LAB 13:58
PROVIDERS: ATTEND Internal Medicine
DX: E11.42 Type 2 diabetes mellitus with diabetic polyneuropathy (principal); E03.9 Hypothyroidism, unspecified; E78.00 Pure hypercholesterolemia, unspecified; E55.9 Vitamin D deficiency, unspecified
CPT/HCPCS: 36415; 80053; 80061; 81001; 83036; 84443; 85025

== ENCOUNTER 2020-04-01 19:52 | Inpatient (IN) | payer MEDICARE, MEDICAID ==
[~2020-04-01] VITALS: Ht 157.5 cm; Wt 74.3 kg
[~2020-04-01 19:52] MED LIST changes: +CYCL-839 PO; -CYCL10TA6 PO
[2020-04-01] MEDS ORDERED: ONDANSETRON HCL 4 MG/2 ML VIAL IV ONE (20:15)
[2020-04-01] MEDS ORDERED: MORPHINE SULFATE 4 MG/ML SYR/VIAL IV ONE (20:15)
[2020-04-01 22:03] LABS: Urine Bacteria NONE SEEN /hpf (None Seen); Urine Blood Negative /uL (Negative); Urine Specific Gravity 1.009 (1.001-1.035); Urine WBC 2 /hpf (0 - 5)
[2020-04-01 23:10] LABS: Basophils # (auto) 0 10 ^3/uL (0-0.2); Basophils % (auto) 0.8 % (0.0-2.0); Eosinophils # (auto) 0.1 10 ^3/uL (0-0.8); Eosinophils % (auto) 1.6 % (0.0-7.0); Hematocrit 28.4 % (36.0-46.0); Hemoglobin 9.4 g/dL (12.2-16.2); Lymphocytes # (auto) 1.5 10 ^3/uL (0.4-5.4); Lymphocytes % (auto) 25.7 % (10.0-50.0); Mean Corpuscular Hemoglobin 28.2 pg (28.0-32.0); Mean Corpuscular Hgb Conc. 33.1 g/dL (32.0-36.0); Mean Corpuscular Volume 85.2 fL (80.0-100.0); Monocytes # (auto) 0.5 10 ^3/uL (0-1.3); Monocytes % (auto) 9.2 % (0.0-12.0); Neutrophils # (auto) 3.6 10 ^3/uL (1.6-8.6); Neutrophils % (auto) 62.7 % (37.0-80.0); Red Blood Cells 3.33 10^6/uL (4.0-5.20); Red Cell Distribution Width 14.3 % (11.8-14.3); White Blood Cell 5.7 10^3/uL (4.4-10.8)
[2020-04-01 23:31] LABS: Chloride 108 mmol/L (98-107); Potassium 4.4 mmol/L (3.5-5.1); Sodium 139 mmol/L (136-145)
[2020-04-01 23:35] LABS: Anion Gap 6 (5-15); BUN/Creatinine Ratio 25.3; Blood Urea Nitrogen 25 mg/dL (7-18); Calcium 8.5 mg/dL (8.5-10.1); Carbon Dioxide 25 mmol/L (21-32); GFR African American 73 mL/min; GFR Non-African American 60 mL/min; Glucose 107 mg/dL (74-106); Magnesium 2.2 mg/dL (1.6-2.6)
[2020-04-01 23:50] LABS: Alanine Aminotransferase 24 U/L (13-56); Alkaline Phosphatase 116 U/L (45-117); Aspartate Aminotransferase 42 U/L (15-37); Bilirubin, Total 0.2 mg/dL (0.2-1.0); Total Protein 6.3 g/dL (6.4-8.2)
[2020-04-02] MEDS ORDERED: ACETAMINOPHEN 325 MG TAB PO PRN (00:45)
[2020-04-02] MEDS ORDERED: DEXTROSE (50%) 50ML SYRG IV PRN (00:45)
[2020-04-02] MEDS ORDERED: DOCUSATE SOD 100 MG CAP PO PRN (00:45)
[2020-04-02] MEDS ORDERED: NITROGLYCERIN 0.4 MG SL TAB SL PRN (00:45)
[2020-04-02] MEDS ORDERED: hydrALAZINE HCL 20 MG/ML VL IV PRN (00:45)
[2020-04-02] MEDS ORDERED: HYDROcodone-ACET 5/325MG TAB PO PRN (00:45)
[2020-04-02] MEDS: MORPHINE SULFATE 4 MG/ML SYR/VIAL IV PRN ×4 (01:28→21:08)
[2020-04-02] MEDS: ONDANSETRON HCL 4 MG/2 ML VIAL IV PRN ×4 (01:29→21:08)
[2020-04-02] MEDS ORDERED: LEVOTHYROXINE SODIUM 25 MCG TAB PO SCH (06:00)
[2020-04-02] MEDS ORDERED: LEVOTHYROXINE SODIUM 100 MCG TAB PO SCH (06:00)
[2020-04-02] MEDS: InsuLIN REG 1unit/0.01ml Soln (100units/ml) SC SCH ×4 (07:00→21:09)
[2020-04-02] MEDS: ACCU-CHEK COMFORT CURVE STRIP VI SCH ×4 (07:00→21:08)
[2020-04-02] MEDS ORDERED: LEVOTHYROXINE SODIUM 25 MCG TAB PO ONE (07:00)
[2020-04-02] MEDS: SODIUM CHLOR 0.9% PF (SALINE LOCK) 10ML VIAL/SYR IV SCH ×3 (07:01→21:07)
[2020-04-02] MEDS: LEVOTHYROXINE SODIUM 25 MCG TAB PO SCH (07:04)
[2020-04-02 07:14] LABS: Albumin 3.1 g/dL (3.4-5.0); Anion Gap 3 (5-15); Blood Urea Nitrogen 24 mg/dL (7-18); Calcium 8.4 mg/dL (8.5-10.1); Carbon Dioxide 28 mmol/L (21-32); Chloride 110 mmol/L (98-107); Glucose 101 mg/dL (74-106); Potassium 4.7 mmol/L (3.5-5.1); Sodium 141 mmol/L (136-145)
[2020-04-02 07:20] LABS: Alanine Aminotransferase 31 U/L (13-56); Alkaline Phosphatase 110 U/L (45-117); Aspartate Aminotransferase 53 U/L (15-37); BUN/Creatinine Ratio 24.2; Bilirubin, Total 0.3 mg/dL (0.2-1.0); GFR African American 73 mL/min; GFR Non-African American 60 mL/min; Total Protein 6.9 g/dL (6.4-8.2)
[2020-04-02 07:22] LABS: Basophils # (auto) 0 10 ^3/uL (0-0.2); Basophils % (auto) 0.6 % (0.0-2.0); Eosinophils # (auto) 0.1 10 ^3/uL (0-0.8); Eosinophils % (auto) 1.8 % (0.0-7.0); Hematocrit 29.8 % (36.0-46.0); Hemoglobin 9.8 g/dL (12.2-16.2); Lymphocytes # (auto) 1.6 10 ^3/uL (0.4-5.4); Lymphocytes % (auto) 30.8 % (10.0-50.0); Mean Corpuscular Hemoglobin 28.2 pg (28.0-32.0); Mean Corpuscular Hgb Conc. 32.8 g/dL (32.0-36.0); Monocytes # (auto) 0.6 10 ^3/uL (0-1.3); Neutrophils # (auto) 2.9 10 ^3/uL (1.6-8.6); Neutrophils % (auto) 55.8 % (37.0-80.0); Nucleated Red Blood Cells % 0.1 %; Red Blood Cells 3.47 10^6/uL (4.0-5.20); White Blood Cell 5.2 10^3/uL (4.4-10.8)
[2020-04-02] MEDS: ISOSORBIDE MONONITRATE ER 60 MG TAB PO SCH (08:21)
[2020-04-02] MEDS: FAMOTIDINE (10MG/ML) 2ML VL IV SCH ×2 (08:21→21:07)
[2020-04-02] MEDS: ASCORBIC ACID 500 MG TAB PO SCH ×2 (08:22→21:08)
[2020-04-02] MEDS: MULTIPLE VITAMIN TAB PO SCH (08:22)
[2020-04-02] MEDS: ENOXAPARIN SOD 40 MG/0.4 ML SYRINGE SC SCH (08:22)
[2020-04-02] MEDS: CLOPIDOGREL BISULFATE 75 MG TAB PO SCH (08:22)
[2020-04-02] MEDS ORDERED: ADENOSINE 58 MG in GIVE UN-DILUTED 0 ML IV STA (08:56)
[2020-04-02] MEDS: MORPHINE SULFATE INJECTION 2 MG/ML SYRG IV PRN ×2 (09:02→10:52)
[2020-04-02] MEDS ORDERED: diphenhdrAMINE HCL 25 MG CAP PO PRN (14:15)
[2020-04-02] MEDS: GABAPENTIN 400 MG CAP PO SCH ×2 (14:30→21:08)
[2020-04-02] MEDS ORDERED: [UNRECOGNIZED DRUG - CODE] IJ (16:51)
[2020-04-02] MEDS ORDERED: BUDE1AER4 IN (16:51)
[2020-04-02] MEDS ORDERED: TRIA0.1P17 TOP (16:51)
[2020-04-02] MEDS ORDERED: KETO2CRE4 TOP (16:51)
[2020-04-02 17:06] VITALS: BP 121/62
[2020-04-02 21:01] VITALS: BP 135/65
[2020-04-02] MEDS ORDERED: GABAPENTIN 400 MG CAP PO SCH (22:00)
[2020-04-02] MEDS ORDERED: ATORVASTATIN 20 MG TAB PO SCH (22:00)
[2020-04-02 22:25] VITALS: BP 116/69
[2020-04-02] MEDS: ZOLPIDEM TARTRATE 5 MG TAB PO PRN (22:42)
[2020-04-03 04:17] VITALS: BP 150/65
[2020-04-03] MEDS: SODIUM CHLOR 0.9% PF (SALINE LOCK) 10ML VIAL/SYR IV SCH ×3 (05:01→21:21)
[2020-04-03] MEDS: GABAPENTIN 400 MG CAP PO SCH ×3 (05:06→21:22)
[2020-04-03] MEDS: MORPHINE SULFATE 4 MG/ML SYR/VIAL IV PRN ×5 (05:07→23:30)
[2020-04-03] MEDS: ONDANSETRON HCL 4 MG/2 ML VIAL IV PRN ×4 (05:07→18:57)
[2020-04-03 05:55] VITALS: BP 130/61
[2020-04-03] MEDS: InsuLIN REG 1unit/0.01ml Soln (100units/ml) SC SCH ×4 (06:00→21:23)
[2020-04-03] MEDS: LEVOTHYROXINE SODIUM 25 MCG TAB PO SCH (06:00)
[2020-04-03] MEDS: ACCU-CHEK COMFORT CURVE STRIP VI SCH ×4 (06:00→21:23)
[2020-04-03 07:19] LABS: Basophils # (auto) 0 10 ^3/uL (0-0.2); Basophils % (auto) 0.8 % (0.0-2.0); Eosinophils # (auto) 0.1 10 ^3/uL (0-0.8); Eosinophils % (auto) 2.2 % (0.0-7.0); Hematocrit 31.4 % (36.0-46.0); Hemoglobin 10.4 g/dL (12.2-16.2); Lymphocytes # (auto) 1.1 10 ^3/uL (0.4-5.4); Lymphocytes % (auto) 24.7 % (10.0-50.0); Mean Corpuscular Hemoglobin 28.2 pg (28.0-32.0); Mean Corpuscular Volume 85.5 fL (80.0-100.0); Monocytes # (auto) 0.5 10 ^3/uL (0-1.3); Monocytes % (auto) 10.5 % (0.0-12.0); Neutrophils # (auto) 2.8 10 ^3/uL (1.6-8.6); Neutrophils % (auto) 61.8 % (37.0-80.0); Nucleated Red Blood Cells % 0.1 %; Red Blood Cells 3.67 10^6/uL (4.0-5.20); Red Cell Distribution Width 14.2 % (11.8-14.3); White Blood Cell 4.5 10^3/uL (4.4-10.8)
[2020-04-03 07:47] LABS: Albumin 3.1 g/dL (3.4-5.0); BUN/Creatinine Ratio 18.6; Calcium 8.7 mg/dL (8.5-10.1); Potassium 4.4 mmol/L (3.5-5.1)
[2020-04-03 07:50] LABS: Bilirubin, Total 0.3 mg/dL (0.2-1.0); Total Protein 6.7 g/dL (6.4-8.2)
[2020-04-03 09:00] VITALS: BP 152/73
[2020-04-03] MEDS: ASCORBIC ACID 500 MG TAB PO SCH ×2 (09:55→21:22)
[2020-04-03] MEDS: MULTIPLE VITAMIN TAB PO SCH (09:56)
[2020-04-03] MEDS: CLOPIDOGREL BISULFATE 75 MG TAB PO SCH (09:56)
[2020-04-03] MEDS: ISOSORBIDE MONONITRATE ER 60 MG TAB PO SCH (09:56)
[2020-04-03] MEDS: FAMOTIDINE (10MG/ML) 2ML VL IV SCH ×2 (09:57→21:21)
[2020-04-03] MEDS: ENOXAPARIN SOD 40 MG/0.4 ML SYRINGE SC SCH (09:58)
[2020-04-03] MEDS ORDERED: ENOXAPARIN SOD 100 MG/1 ML SYRINGE SC ONE (10:30)
[2020-04-03] MEDS ORDERED: ENOXAPARIN SOD 80 MG/0.8ML SYRINGE SC ONE (10:45)
[2020-04-03 13:00] VITALS: BP 117/49
[2020-04-03] MEDS ORDERED: ENOXAPARIN SOD 30 MG/0.3 ML SYRINGE SC ONE (13:00)
[2020-04-03 17:00] VITALS: BP 129/68
[2020-04-03] MEDS: ATORVASTATIN 20 MG TAB PO SCH (21:21)
[2020-04-03] MEDS: ENOXAPARIN SOD 80 MG/0.8ML SYRINGE SC SCH (21:22)
[2020-04-03] MEDS: ZOLPIDEM TARTRATE 5 MG TAB PO PRN (21:23)
[2020-04-03 22:00] VITALS: BP 146/76
[2020-04-04] MEDS: MORPHINE SULFATE 4 MG/ML SYR/VIAL IV PRN ×5 (03:33→22:40)
[2020-04-04 05:00] VITALS: BP 106/55
[2020-04-04] MEDS: SODIUM CHLOR 0.9% PF (SALINE LOCK) 10ML VIAL/SYR IV SCH ×3 (06:10→21:25)
[2020-04-04] MEDS: GABAPENTIN 400 MG CAP PO SCH ×3 (06:11→21:25)
[2020-04-04] MEDS: InsuLIN REG 1unit/0.01ml Soln (100units/ml) SC SCH ×4 (06:11→21:23)
[2020-04-04] MEDS: LEVOTHYROXINE SODIUM 25 MCG TAB PO SCH (06:11)
[2020-04-04] MEDS: ACCU-CHEK COMFORT CURVE STRIP VI SCH ×4 (06:11→21:29)
[2020-04-04] MEDS: FAMOTIDINE (10MG/ML) 2ML VL IV SCH ×2 (08:46→21:25)
[2020-04-04] MEDS: ONDANSETRON HCL 4 MG/2 ML VIAL IV PRN ×4 (08:46→22:48)
[2020-04-04 09:00] VITALS: BP 128/70
[2020-04-04] MEDS: ISOSORBIDE MONONITRATE ER 60 MG TAB PO SCH (09:04)
[2020-04-04] MEDS: MULTIPLE VITAMIN TAB PO SCH (09:05)
[2020-04-04] MEDS: ASCORBIC ACID 500 MG TAB PO SCH ×2 (09:05→21:25)
[2020-04-04] MEDS: CLOPIDOGREL BISULFATE 75 MG TAB PO SCH (09:05)
[2020-04-04] MEDS: ENOXAPARIN SOD 80 MG/0.8ML SYRINGE SC SCH ×2 (09:06→21:26)
[2020-04-04] MEDS ORDERED: diphenhdrAMINE HCL 25 MG CAP PO PRN (11:15)
[2020-04-04 12:05] VITALS: BP 130/73
[2020-04-04 14:32] VITALS: BP 133/70
[2020-04-04] MEDS: ATORVASTATIN 20 MG TAB PO SCH (21:24)
[2020-04-04] MEDS: ZOLPIDEM TARTRATE 5 MG TAB PO PRN (22:56)
[2020-04-04 23:30] VITALS: BP 127/59
[2020-04-05] MEDS: MORPHINE SULFATE 4 MG/ML SYR/VIAL IV PRN (04:53)
[2020-04-05] MEDS: ONDANSETRON HCL 4 MG/2 ML VIAL IV PRN (04:53)
[2020-04-05] MEDS: SODIUM CHLOR 0.9% PF (SALINE LOCK) 10ML VIAL/SYR IV SCH (06:01)
[2020-04-05] MEDS: GABAPENTIN 400 MG CAP PO SCH (06:02)
[2020-04-05] MEDS: LEVOTHYROXINE SODIUM 25 MCG TAB PO SCH (06:07)
[2020-04-05] MEDS: ACCU-CHEK COMFORT CURVE STRIP VI SCH (06:07)
[2020-04-05] MEDS: InsuLIN REG 1unit/0.01ml Soln (100units/ml) SC SCH (06:07)
[2020-04-05] MEDS: IPRATROPIUM BROM 0.5 MG/2.5ML INH SOL NEB PRN ×2 (06:15→08:32)
[2020-04-05] MEDS: ALBUTEROL SULF 2.5 MG/0.5ML(0.5%) NEB SOLN NEB PRN ×2 (06:15→08:32)
[2020-04-05 07:42] VITALS: BP 127/62
[2020-04-05] MEDS: MORPHINE SULFATE INJECTION 2 MG/ML SYRG IV PRN (08:15)
[2020-04-05] MEDS: ENOXAPARIN SOD 80 MG/0.8ML SYRINGE SC SCH (09:06)
[2020-04-05 09:30] VITALS: BP 127/62
== END 2020-04-05 09:08 | disposition short-term general hospital (02) | DRG 311 ==
LOC: ER 19:52 → EDBD 19:52 → TELE 19:53 → TELE-CENTR 04-02 15:15
PROVIDERS: ADMIT Nurse Practitioner Family; ATTEND Internal Medicine
DX: I24.9 Acute ischemic heart disease, unspecified (principal); I69.354 Hemiplegia and hemiparesis following cerebral infarction affecting left non-dominant side; J44.1 Chronic obstructive pulmonary disease with (acute) exacerbation; I25.119 Atherosclerotic heart disease of native coronary artery with unspecified angina pectoris; E11.9 Type 2 diabetes mellitus without complications; I11.0 Hypertensive heart disease with heart failure; K21.9 Gastro-esophageal reflux disease without esophagitis; E78.5 Hyperlipidemia, unspecified; E03.9 Hypothyroidism, unspecified; G89.29 Other chronic pain; Z95.1 Presence of aortocoronary bypass graft; Z88.6 Allergy status to analgesic agent; Z91.018 Allergy to other foods; Z79.899 Other long term (current) drug therapy; Z79.84 Long term (current) use of oral hypoglycemic drugs; Z79.52 Long term (current) use of systemic steroids; Z90.49 Acquired absence of other specified parts of digestive tract; Z90.710 Acquired absence of both cervix and uterus; Z98.51 Tubal ligation status; Z82.49 Family history of ischemic heart disease and other diseases of the circulatory system; Z80.3 Family history of malignant neoplasm of breast; Z82.3 Family history of stroke; Z83.3 Family history of diabetes mellitus; Z95.5 Presence of coronary angioplasty implant and graft; I50.9 Heart failure, unspecified
CPT/HCPCS: 36415; 71045; 78452; 80053; 81001; 82306; 82962; 83735; 83880; 84443; 84484; 85025; 93005; 93017; 93306; 94640; 96365; 96372; 96375; G0378; J0153; J1815; J2405; J3490

== ENCOUNTER 2020-05-19 10:29 | Emergency (ER) | payer MEDICARE, MEDICAID ==
[~2020-05-19] VITALS: Ht 157.5 cm; Wt 72.6 kg
[~2020-05-19 10:29] MED LIST changes: +BUDE1AER4 IN; -CYCL-839 PO; +CYCL10TA6 PO; +KETO2CRE4 TOP; +TRIA0.1P11 TOP; +[UNRECOGNIZED DRUG - CODE] IJ
[2020-05-19 11:23] VITALS: BP 141/64
== END 2020-05-19 12:20 | disposition home or self-care (01) ==
LOC: ER 10:29
DX: M25.572 Pain in left ankle and joints of left foot (principal); M25.571 Pain in right ankle and joints of right foot; E11.49 Type 2 diabetes mellitus with other diabetic neurological complication; I11.0 Hypertensive heart disease with heart failure; I50.9 Heart failure, unspecified; K21.9 Gastro-esophageal reflux disease without esophagitis; E78.5 Hyperlipidemia, unspecified; Z90.49 Acquired absence of other specified parts of digestive tract; Z90.710 Acquired absence of both cervix and uterus; Z79.899 Other long term (current) drug therapy; Z88.6 Allergy status to analgesic agent
CPT/HCPCS: 73610; 82962

== ENCOUNTER 2020-07-24 09:05 | Inpatient (IN) | payer MEDICARE, MEDICAID ==
[~2020-07-24] VITALS: Ht 167.6 cm; Wt 77.9 kg
[2020-07-24 10:25] LABS: Basophils # (auto) 0 10 ^3/uL (0-0.2); Mean Corpuscular Hgb Conc. 32.1 g/dL (32.0-36.0); Monocytes # (auto) 0.5 10 ^3/uL (0-1.3); Monocytes % (auto) 7.2 % (0.0-12.0); Platelet Count (auto) 383 10^3/uL (140-450)
[2020-07-24 10:27] LABS: Basophils % (auto) 0.6 % (0.0-2.0); Eosinophils # (auto) 0 10 ^3/uL (0-0.8); Eosinophils % (auto) 0.7 % (0.0-7.0); Hematocrit 36.2 % (36.0-46.0); Hemoglobin 11.6 g/dL (12.2-16.2); Lymphocytes # (auto) 1.4 10 ^3/uL (0.4-5.4); Lymphocytes % (auto) 23.1 % (10.0-50.0); Mean Corpuscular Hemoglobin 25.9 pg (28.0-32.0); Mean Corpuscular Volume 80.5 fL (80.0-100.0); Neutrophils # (auto) 4.3 10 ^3/uL (1.6-8.6); Neutrophils % (auto) 68.4 % (37.0-80.0); Nucleated Red Blood Cells % 0.2 %; Red Cell Distribution Width 16.6 % (11.8-14.3); White Blood Cell 6.2 10^3/uL (4.4-10.8)
[2020-07-24 10:38] LABS: Chloride 108 mmol/L (98-107); Potassium 4.2 mmol/L (3.5-5.1); Sodium 139 mmol/L (136-145)
[2020-07-24 10:48] LABS: Alanine Aminotransferase 20 U/L (13-56); Albumin 3.5 g/dL (3.4-5.0); Alkaline Phosphatase 154 U/L (45-117); Anion Gap 6 (5-15); Aspartate Aminotransferase 18 U/L (15-37); Bilirubin, Total 0.2 mg/dL (0.2-1.0); Blood Urea Nitrogen 16 mg/dL (7-18); Calcium 9.2 mg/dL (8.5-10.1); Carbon Dioxide 25 mmol/L (21-32); GFR African American 82 mL/min; GFR Non-African American 68 mL/min; Glucose 135 mg/dL (74-106); Total Protein 8.3 g/dL (6.4-8.2)
[2020-07-24 14:00] LABS: INR 0.98 (0.9-1.15); Partial Thromboplastin Time 24.6 sec (23.0-31.2)
[2020-07-24] MEDS ORDERED: MORPHINE SULF INJ 2 MG/ML SYRINGE 1ML IV PRN (17:00)
[2020-07-24] MEDS ORDERED: NITROGLYCERIN 0.4 MG SL TAB SL PRN (17:00)
[2020-07-24] MEDS ORDERED: TEMAZEPAM 15 MG CAP PO PRN (17:15)
[2020-07-24] MEDS ORDERED: FUROSEMIDE 20 MG TAB PO PRN (17:15)
[2020-07-24] MEDS ORDERED: DEXTROSE (50%) 50ML SYRG IV PRN (17:15)
[2020-07-24] MEDS ORDERED: ALBUTEROL SULF 2.5 MG/0.5ML(0.5%) NEB SOLN NEB PRN (17:15)
[2020-07-24] MEDS ORDERED: ACETAMINOPHEN 500 MG TAB PO PRN (17:15)
[2020-07-24] MEDS ORDERED: traMADol HCL 50 MG TAB PO PRN (17:15)
[2020-07-24] MEDS ORDERED: OXYCODONE W/ ACETAMINOPHEN 5/325MG TABLET PO PRN (18:00)
[2020-07-24 18:53] LABS: CRP High Sensitivity 0.215 mg/dL (< 0.3)
[2020-07-24] MEDS: IPRATROPIUM BROM 0.5 MG/2.5ML INH SOL NEB SCH ×2 (19:25→23:03)
[2020-07-24] MEDS: ALBUTEROL SULF 2.5 MG/0.5ML(0.5%) NEB SOLN NEB SCH ×2 (19:25→23:03)
[2020-07-24 20:04] VITALS: BP 154/63
[2020-07-24] MEDS: MORPHINE SULF INJ 2 MG/ML SYRINGE 1ML IV PRN (20:04)
[2020-07-24] MEDS: SODIUM CHLORIDE 0.9% 1,000 ML IV SCH ×2 (20:04→22:37)
[2020-07-24] MEDS: CYCLOBENZAPRINE HCL 10 MG TAB PO SCH (21:56)
[2020-07-24] MEDS: GABAPENTIN 400 MG CAP PO SCH (21:56)
[2020-07-24] MEDS: ZOLPIDEM TARTRATE 5 MG TAB PO SCH (21:58)
[2020-07-24 22:00] VITALS: BP 185/97
[2020-07-24] MEDS: InsuLIN REG 1unit/0.01ml Soln (100units/ml) SC SCH (22:00)
[2020-07-24] MEDS: KETOCONAZOLE 2 % TOPICAL CREAM 15GM TOP SCH (22:00)
[2020-07-24] MEDS: RANOLAZINE ER 500 MG TAB PO SCH (22:38)
[2020-07-24] MEDS: ACCU-CHEK COMFORT CURVE STRIP VI SCH (23:26)
[2020-07-25] VITALS: BP 185/97
[2020-07-25] MEDS: ONDANSETRON HCL 4 MG/2 ML VIAL IV PRN ×3 (00:58→22:03)
[2020-07-25 05:00] VITALS: BP 149/77
[2020-07-25] MEDS: CYCLOBENZAPRINE HCL 10 MG TAB PO SCH ×3 (06:30→22:04)
[2020-07-25] MEDS: LEVOTHYROXINE SODIUM 50 MCG TAB PO SCH (06:31)
[2020-07-25] MEDS: GABAPENTIN 400 MG CAP PO SCH ×3 (06:31→22:04)
[2020-07-25] MEDS: ACCU-CHEK COMFORT CURVE STRIP VI SCH ×4 (06:33→22:04)
[2020-07-25] MEDS: MORPHINE SULF INJ 2 MG/ML SYRINGE 1ML IV PRN ×3 (06:34→20:27)
[2020-07-25] MEDS: InsuLIN REG 1unit/0.01ml Soln (100units/ml) SC SCH ×4 (06:35→22:10)
[2020-07-25] MEDS: ALBUTEROL SULF 2.5 MG/0.5ML(0.5%) NEB SOLN NEB SCH ×3 (06:43→19:26)
[2020-07-25] MEDS: IPRATROPIUM BROM 0.5 MG/2.5ML INH SOL NEB SCH ×3 (06:43→19:26)
[2020-07-25 09:00] VITALS: BP 162/78
[2020-07-25] MEDS: LOSARTAN POTASSIUM 50 MG TAB PO SCH (10:39)
[2020-07-25] MEDS: ISOSORBIDE MONONITRATE ER 60 MG TAB PO SCH (10:40)
[2020-07-25] MEDS: PRAVASTATIN SODIUM 20 MG TAB PO SCH (10:40)
[2020-07-25] MEDS: CLOPIDOGREL BISULFATE 75 MG TAB PO SCH (10:40)
[2020-07-25] MEDS: PANTOPRAZOLE 40 MG TAB PO SCH (10:40)
[2020-07-25] MEDS: RANOLAZINE ER 500 MG TAB PO SCH ×2 (10:40→22:04)
[2020-07-25] MEDS: METOPROLOL SUCCINATE XL 50 MG TAB PO SCH (10:41)
[2020-07-25] MEDS: ENOXAPARIN SOD 40 MG/0.4 ML SYRINGE SC SCH (10:42)
[2020-07-25] MEDS: KETOCONAZOLE 2 % TOPICAL CREAM 15GM TOP SCH ×2 (10:42→22:04)
[2020-07-25 13:00] VITALS: BP 127/70
[2020-07-25 16:37] VITALS: BP 105/56
[2020-07-25] MEDS: ZOLPIDEM TARTRATE 5 MG TAB PO SCH (22:04)
[2020-07-25 22:19] VITALS: BP 104/57
[2020-07-26 05:30] VITALS: BP 148/64
[2020-07-26 06:19] LABS: Eosinophils # (auto) 0.1 10 ^3/uL (0-0.8); Hematocrit 31.5 % (36.0-46.0); Mean Corpuscular Hemoglobin 26.3 pg (28.0-32.0); Mean Corpuscular Hgb Conc. 32.6 g/dL (32.0-36.0); Nucleated Red Blood Cells % 0.1 %
[2020-07-26] MEDS: CYCLOBENZAPRINE HCL 10 MG TAB PO SCH ×3 (06:20→21:43)
[2020-07-26] MEDS: GABAPENTIN 400 MG CAP PO SCH ×3 (06:20→21:43)
[2020-07-26 06:21] LABS: Basophils # (auto) 0 10 ^3/uL (0-0.2); Basophils % (auto) 0.9 % (0.0-2.0); Eosinophils % (auto) 1.1 % (0.0-7.0); Hemoglobin 10.2 g/dL (12.2-16.2); Lymphocytes # (auto) 1.6 10 ^3/uL (0.4-5.4); Lymphocytes % (auto) 27.8 % (10.0-50.0); Mean Corpuscular Volume 80.9 fL (80.0-100.0); Monocytes # (auto) 0.5 10 ^3/uL (0-1.3); Monocytes % (auto) 8.7 % (0.0-12.0); Neutrophils # (auto) 3.5 10 ^3/uL (1.6-8.6); Neutrophils % (auto) 61.5 % (37.0-80.0); Platelet Count (auto) 324 10^3/uL (140-450); Red Blood Cells 3.89 10^6/uL (4.0-5.20); White Blood Cell 5.7 10^3/uL (4.4-10.8)
[2020-07-26] MEDS: InsuLIN REG 1unit/0.01ml Soln (100units/ml) SC SCH ×4 (06:21→21:47)
[2020-07-26] MEDS: LEVOTHYROXINE SODIUM 50 MCG TAB PO SCH (06:21)
[2020-07-26] MEDS: ACCU-CHEK COMFORT CURVE STRIP VI SCH ×4 (06:21→21:43)
[2020-07-26 06:39] LABS: BUN/Creatinine Ratio 22.1; Calcium 8.4 mg/dL (8.5-10.1); Potassium 4.8 mmol/L (3.5-5.1)
[2020-07-26] MEDS: MORPHINE SULF INJ 2 MG/ML SYRINGE 1ML IV PRN (06:43)
[2020-07-26] MEDS: ALBUTEROL SULF 2.5 MG/0.5ML(0.5%) NEB SOLN NEB SCH ×4 (07:06→18:58)
[2020-07-26] MEDS: IPRATROPIUM BROM 0.5 MG/2.5ML INH SOL NEB SCH ×4 (07:06→18:58)
[2020-07-26 09:00] VITALS: BP 144/76
[2020-07-26] MEDS: LOSARTAN POTASSIUM 50 MG TAB PO SCH (10:20)
[2020-07-26] MEDS: PRAVASTATIN SODIUM 20 MG TAB PO SCH (10:21)
[2020-07-26] MEDS: CLOPIDOGREL BISULFATE 75 MG TAB PO SCH (10:21)
[2020-07-26] MEDS: PANTOPRAZOLE 40 MG TAB PO SCH (10:21)
[2020-07-26] MEDS: ISOSORBIDE MONONITRATE ER 60 MG TAB PO SCH (10:21)
[2020-07-26] MEDS: RANOLAZINE ER 500 MG TAB PO SCH ×2 (10:21→21:52)
[2020-07-26] MEDS: METOPROLOL SUCCINATE XL 50 MG TAB PO SCH (10:21)
[2020-07-26] MEDS: KETOCONAZOLE 2 % TOPICAL CREAM 15GM TOP SCH ×2 (10:22→21:52)
[2020-07-26] MEDS: ENOXAPARIN SOD 40 MG/0.4 ML SYRINGE SC SCH (10:22)
[2020-07-26 12:56] VITALS: BP 93/52
[2020-07-26] MEDS: ONDANSETRON HCL 4 MG/2 ML VIAL IV PRN ×2 (16:29→21:30)
[2020-07-26 17:00] VITALS: BP 97/52
[2020-07-26] MEDS: ZOLPIDEM TARTRATE 5 MG TAB PO SCH (21:43)
[2020-07-26 22:00] VITALS: BP 90/55
[2020-07-27 05:00] VITALS: BP 102/52
[2020-07-27] MEDS: MORPHINE SULF INJ 2 MG/ML SYRINGE 1ML IV PRN ×2 (05:28→10:48)
[2020-07-27] MEDS: ONDANSETRON HCL 4 MG/2 ML VIAL IV PRN (05:29)
[2020-07-27] MEDS: CYCLOBENZAPRINE HCL 10 MG TAB PO SCH ×2 (06:32→15:06)
[2020-07-27] MEDS: ACCU-CHEK COMFORT CURVE STRIP VI SCH ×2 (06:33→11:30)
[2020-07-27] MEDS: InsuLIN REG 1unit/0.01ml Soln (100units/ml) SC SCH ×2 (06:33→11:30)
[2020-07-27] MEDS: LEVOTHYROXINE SODIUM 50 MCG TAB PO SCH (06:33)
[2020-07-27] MEDS: GABAPENTIN 400 MG CAP PO SCH ×2 (06:33→15:06)
[2020-07-27] MEDS: ALBUTEROL SULF 2.5 MG/0.5ML(0.5%) NEB SOLN NEB SCH ×3 (06:53→12:36)
[2020-07-27] MEDS: IPRATROPIUM BROM 0.5 MG/2.5ML INH SOL NEB SCH ×3 (06:53→12:36)
[2020-07-27 08:00] VITALS: BP 133/72
[2020-07-27 09:00] VITALS: BP 133/72
[2020-07-27] MEDS: METOPROLOL SUCCINATE XL 50 MG TAB PO SCH (10:00)
[2020-07-27] MEDS: ENOXAPARIN SOD 40 MG/0.4 ML SYRINGE SC SCH (10:53)
[2020-07-27] MEDS: LOSARTAN POTASSIUM 50 MG TAB PO SCH (10:54)
[2020-07-27] MEDS: PRAVASTATIN SODIUM 20 MG TAB PO SCH (10:54)
[2020-07-27] MEDS: CLOPIDOGREL BISULFATE 75 MG TAB PO SCH (10:54)
[2020-07-27] MEDS: RANOLAZINE ER 500 MG TAB PO SCH (10:55)
[2020-07-27] MEDS: PANTOPRAZOLE 40 MG TAB PO SCH (10:55)
[2020-07-27] MEDS: KETOCONAZOLE 2 % TOPICAL CREAM 15GM TOP SCH (10:56)
[2020-07-27] MEDS: ISOSORBIDE MONONITRATE ER 60 MG TAB PO SCH (10:57)
[2020-07-27 12:47] VITALS: BP 127/68
== END 2020-07-27 16:03 | disposition home or self-care (01) | DRG 303 ==
LOC: EDBD 09:05 → ER 09:05 → TELE 16:51 → TELE-WESTW 21:26 → WEST WING 07-27 12:03
PROVIDERS: ADMIT Internal Medicine; ATTEND Internal Medicine
DX: I25.110 Atherosclerotic heart disease of native coronary artery with unstable angina pectoris (principal); I24.9 Acute ischemic heart disease, unspecified; J96.11 Chronic respiratory failure with hypoxia; Z20.822 Contact with and (suspected) exposure to COVID-19; D63.8 Anemia in other chronic diseases classified elsewhere; E78.5 Hyperlipidemia, unspecified; J44.9 Chronic obstructive pulmonary disease, unspecified; K21.9 Gastro-esophageal reflux disease without esophagitis; E03.9 Hypothyroidism, unspecified; E11.9 Type 2 diabetes mellitus without complications; I11.0 Hypertensive heart disease with heart failure; Z82.49 Family history of ischemic heart disease and other diseases of the circulatory system; Z86.73 Personal history of transient ischemic attack (TIA), and cerebral infarction without residual deficits; Z90.710 Acquired absence of both cervix and uterus; Z95.1 Presence of aortocoronary bypass graft; Z95.5 Presence of coronary angioplasty implant and graft; Z98.84 Bariatric surgery status; Z88.8 Allergy status to other drugs, medicaments and biological substances; Z91.018 Allergy to other foods; Z79.899 Other long term (current) drug therapy; Z79.891 Long term (current) use of opiate analgesic; Z79.01 Long term (current) use of anticoagulants; Z90.49 Acquired absence of other specified parts of digestive tract; Z98.51 Tubal ligation status; Z87.891 Personal history of nicotine dependence; Z82.3 Family history of stroke; Z83.3 Family history of diabetes mellitus; Z80.3 Family history of malignant neoplasm of breast; I50.9 Heart failure, unspecified
CPT/HCPCS: 36415; 71045; 80048; 80053; 82306; 82550; 82962; 83036; 83735; 83880; 84443; 84484; 85025; 85379; 85610; 85730; 86141; 87426; 94640; 96360; 96361; G0378; J1815; J2405

== ENCOUNTER 2020-08-24 07:00 | Outpatient (CLI) | payer MEDICARE, MEDICAID | END 2020-08-24 07:09 | disposition home or self-care (01) | LOC: LAB 07:00 | PROVIDERS: ATTEND Physician Assistant | DX: Z20.822 Contact with and (suspected) exposure to COVID-19 (principal) | CPT/HCPCS: C9803; U0003 ==

== ENCOUNTER → 2020-12-23 | Day surgery (SDC) | payer MEDICARE, MEDICAID ==
[2020-12-21 11:12] LABS: Basophils # (auto) 0 10 ^3/uL (0-0.2); Eosinophils # (auto) 0 10 ^3/uL (0-0.8); Lymphocytes # (auto) 1.1 10 ^3/uL (0.4-5.4); Monocytes # (auto) 0.7 10 ^3/uL (0-1.3); Red Cell Distribution Width 16.4 % (11.8-14.3)
[2020-12-21 11:14] LABS: Basophils % (auto) 0.4 % (0.0-2.0); Eosinophils % (auto) 0.5 % (0.0-7.0); Hematocrit 31.8 % (36.0-46.0); Hemoglobin 10.1 g/dL (12.2-16.2); Lymphocytes % (auto) 12.5 % (10.0-50.0); Mean Corpuscular Hgb Conc. 31.8 g/dL (32.0-36.0); Mean Corpuscular Volume 81.7 fL (80.0-100.0); Monocytes % (auto) 8.1 % (0.0-12.0); Neutrophils # (auto) 6.9 10 ^3/uL (1.6-8.6); Neutrophils % (auto) 78.5 % (37.0-80.0); Red Blood Cells 3.89 10^6/uL (4.0-5.20); White Blood Cell 8.7 10^3/uL (4.4-10.8)
[2020-12-21 11:58] LABS: Potassium 4.2 mmol/L (3.5-5.1)
[2020-12-21 12:16] LABS: Albumin 3.1 g/dL (3.4-5.0); BUN/Creatinine Ratio 17.4; Bilirubin, Total 0.3 mg/dL (0.2-1.0); Calcium 8.4 mg/dL (8.5-10.1); Total Protein 6.9 g/dL (6.4-8.2)
[~2020-12-23] VITALS: Ht 157.5 cm; Wt 77.1 kg
[~2020-12-23] MED LIST changes: +CYCL-839 PO; -CYCL10TA6 PO; +LIDO5DIS21 TOP; +LIDOCAINE VISCOUS 2% 15ML UD ONE; +SODIUM CHLORIDE LOCK 10 ML ONE; +TRAZ1TAB12 PO; -TRIA0.1P11 TOP; +TRIA0.1P17 TOP; +diphenhdrAMINE HCL 50 MG/1 ML VL ONE
[2020-12-23] MEDS: MIDAZOLAM HCL 5 MG/ML-1ML VIAL ONE ×2 (09:58→10:01)
[2020-12-23] MEDS: fentaNYL CITRATE 100 MCG/2 ML VL ONE ×2 (09:58→10:01)
[2020-12-23 11:00] VITALS: BP 132/68
== END | disposition home or self-care (01) ==
LOC: GI 09:18
PROVIDERS: ATTEND Internal Medicine Gastroenterology
DX: R13.10 Dysphagia, unspecified (principal); K29.50 Unspecified chronic gastritis without bleeding; K31.89 Other diseases of stomach and duodenum; K21.9 Gastro-esophageal reflux disease without esophagitis; J43.9 Emphysema, unspecified; I25.810 Atherosclerosis of coronary artery bypass graft(s) without angina pectoris; E11.40 Type 2 diabetes mellitus with diabetic neuropathy, unspecified; E03.9 Hypothyroidism, unspecified; I11.0 Hypertensive heart disease with heart failure; Z90.710 Acquired absence of both cervix and uterus; Z20.822 Contact with and (suspected) exposure to COVID-19
CPT/HCPCS: 36415; 43239; 43450; 80053; 82962; 85025; 88305; 88342; J1200; J2250; J3010; J7030; U0003

== ENCOUNTER → 2021-01-24 | Outpatient (CLI) | payer MEDICARE, MEDICAID ==
[~2021-01-24] MED LIST changes: -LIDOCAINE VISCOUS 2% 15ML UD ONE; -SODIUM CHLORIDE LOCK 10 ML ONE; -diphenhdrAMINE HCL 50 MG/1 ML VL ONE
== END | disposition home or self-care (01) ==
LOC: LAB 13:03
PROVIDERS: ATTEND Nurse Practitioner Family
DX: Z20.822 Contact with and (suspected) exposure to COVID-19 (principal)
CPT/HCPCS: C9803; U0003

== ENCOUNTER 2021-04-03 13:11 | Inpatient (IN) | payer MEDICARE, MEDICAID ==
[~2021-04-03] VITALS: Ht 157.5 cm; Wt 80.5 kg
[2021-04-03] MEDS ORDERED: ONDANSETRON HCL 4 MG/2 ML VIAL IV ONE (15:15)
[2021-04-03 16:16] LABS: Basophils # (auto) 0.1 10 ^3/uL (0-0.2); Basophils % (auto) 1.3 % (0.0-2.0); Eosinophils # (auto) 0.1 10 ^3/uL (0-0.8); Eosinophils % (auto) 1.5 % (0.0-7.0); Hematocrit 26.2 % (36.0-46.0); Hemoglobin 8.5 g/dL (12.2-16.2); Lymphocytes # (auto) 1.6 10 ^3/uL (0.4-5.4); Lymphocytes % (auto) 19.3 % (10.0-50.0); Mean Corpuscular Hemoglobin 26.8 pg (28.0-32.0); Mean Corpuscular Hgb Conc. 32.3 g/dL (32.0-36.0); Mean Corpuscular Volume 82.9 fL (80.0-100.0); Monocytes # (auto) 0.6 10 ^3/uL (0-1.3); Monocytes % (auto) 6.9 % (0.0-12.0); Nucleated Red Blood Cells % 0.2 %; Red Blood Cells 3.16 10^6/uL (4.0-5.20); Red Cell Distribution Width 19.1 % (11.8-14.3); White Blood Cell 8.4 10^3/uL (4.4-10.8)
[2021-04-03 16:28] LABS: Albumin 2.6 g/dL (3.4-5.0); Calcium 8.2 mg/dL (8.5-10.1); Magnesium 2.4 mg/dL (1.6-2.6); Partial Thromboplastin Time < 20.0 sec (23.6-33.0); Potassium 4.5 mmol/L (3.5-5.1)
[2021-04-03 16:34] LABS: BUN/Creatinine Ratio 23.9; Bilirubin, Total 0.2 mg/dL (0.2-1.0); Total Protein 6.5 g/dL (6.4-8.2)
[2021-04-03] MEDS ORDERED: MORPHINE SULFATE 4 MG/ML SYR/VIAL IV ONE (16:45)
[2021-04-03] MEDS ORDERED: IOHEXOL 350 MG/ML 100ML IJ ONE (18:44)
[2021-04-03] MEDS ORDERED: DEXTROSE (50%) 50ML SYRG IV PRN (20:15)
[2021-04-03] MEDS ORDERED: DOCUSATE SOD 100 MG CAP PO PRN (20:15)
[2021-04-03] MEDS ORDERED: ACETAMINOPHEN 325 MG TAB PO PRN (20:15)
[2021-04-03] MEDS ORDERED: HYDROcodone-ACET 5/325MG TAB PO PRN (20:15)
[2021-04-03] MEDS ORDERED: hydrALAZINE HCL 20 MG/ML VL IV PRN (20:15)
[2021-04-03] MEDS ORDERED: CLOPIDOGREL BISULFATE 75 MG TAB PO ONE (20:15)
[2021-04-03] MEDS ORDERED: MORPHINE SULFATE INJECTION 2 MG/ML SYRG IV PRN (20:45)
[2021-04-03] MEDS ORDERED: NITROGLYCERIN 0.4 MG SL TAB SL PRN (20:45)
[2021-04-03] MEDS: MORPHINE SULFATE 4 MG/ML SYR/VIAL IV PRN (20:50)
[2021-04-03] MEDS: ONDANSETRON HCL 4 MG/2 ML VIAL IV PRN (21:58)
[2021-04-03] MEDS: METOPROLOL TARTRATE 50 MG TAB PO SCH (22:00)
[2021-04-03] MEDS: InsuLIN REG 1unit/0.01ml Soln (100units/ml) SC SCH (22:00)
[2021-04-03] MEDS: SODIUM CHLOR 0.9% PF (SALINE LOCK) 10ML VIAL/SYR IV SCH (22:06)
[2021-04-03] MEDS: ACCU-CHEK COMFORT CURVE STRIP VI SCH (22:07)
[2021-04-03] MEDS: FAMOTIDINE (10MG/ML) 2ML VL IV SCH (22:46)
[2021-04-04 00:15] VITALS: BP 139/75
[2021-04-04] MEDS: ONDANSETRON HCL 4 MG/2 ML VIAL IV PRN ×2 (02:11→11:48)
[2021-04-04] MEDS: MORPHINE SULFATE 4 MG/ML SYR/VIAL IV PRN ×3 (02:12→11:48)
[2021-04-04 05:00] VITALS: BP 124/77
[2021-04-04 06:58] LABS: Basophils # (auto) 0.1 10 ^3/uL (0-0.2); Eosinophils # (auto) 0.2 10 ^3/uL (0-0.8); Hemoglobin 8.3 g/dL (12.2-16.2); Lymphocytes # (auto) 1.7 10 ^3/uL (0.4-5.4); Mean Corpuscular Hgb Conc. 31.9 g/dL (32.0-36.0); Neutrophils # (auto) 5.6 10 ^3/uL (1.6-8.6); Neutrophils % (auto) 69.5 % (37.0-80.0); Nucleated Red Blood Cells % 0.1 %; Red Blood Cells 3.15 10^6/uL (4.0-5.20); White Blood Cell 8.1 10^3/uL (4.4-10.8)
[2021-04-04] MEDS: LEVOTHYROXINE SODIUM 50 MCG TAB PO SCH ×2 (06:59→07:08)
[2021-04-04] MEDS: SODIUM CHLOR 0.9% PF (SALINE LOCK) 10ML VIAL/SYR IV SCH ×3 (06:59→21:48)
[2021-04-04] MEDS: InsuLIN REG 1unit/0.01ml Soln (100units/ml) SC SCH ×4 (06:59→22:20)
[2021-04-04] MEDS: ACCU-CHEK COMFORT CURVE STRIP VI SCH ×4 (06:59→21:50)
[2021-04-04 07:00] LABS: Basophils % (auto) 0.6 % (0.0-2.0); Eosinophils % (auto) 2.1 % (0.0-7.0); Lymphocytes % (auto) 21.1 % (10.0-50.0); Mean Corpuscular Hemoglobin 26.4 pg (28.0-32.0); Mean Corpuscular Volume 82.6 fL (80.0-100.0); Monocytes # (auto) 0.5 10 ^3/uL (0-1.3); Monocytes % (auto) 6.7 % (0.0-12.0); Red Cell Distribution Width 18.4 % (11.8-14.3)
[2021-04-04 07:19] LABS: Potassium 4.4 mmol/L (3.5-5.1)
[2021-04-04 07:33] LABS: Albumin 2.4 g/dL (3.4-5.0); BUN/Creatinine Ratio 22.6; Bilirubin, Total 0.2 mg/dL (0.2-1.0); Calcium 8.4 mg/dL (8.5-10.1); Total Protein 6.2 g/dL (6.4-8.2)
[2021-04-04] MEDS: METOPROLOL TARTRATE 50 MG TAB PO SCH ×2 (10:00→21:49)
[2021-04-04] MEDS: FUROSEMIDE 20 MG/2 ML VIAL IV SCH (10:24)
[2021-04-04] MEDS: FAMOTIDINE (10MG/ML) 2ML VL IV SCH ×2 (10:24→21:48)
[2021-04-04] MEDS: CLOPIDOGREL BISULFATE 75 MG TAB PO SCH (10:25)
[2021-04-04] MEDS: ENOXAPARIN SOD 80 MG/0.8ML SYRINGE SC SCH ×2 (10:25→21:50)
[2021-04-04] MEDS ORDERED: ALBUTEROL SULF 2.5 MG/0.5ML(0.5%) NEB SOLN NEB SCH (18:00)
[2021-04-04] MEDS: ALBUTEROL SULF 2.5 MG/0.5ML(0.5%) NEB SOLN NEB SCH ×2 (18:41→22:30)
[2021-04-04] MEDS: traZODone HCL 50 MG TAB PO SCH (21:49)
[2021-04-04 22:00] VITALS: BP 143/47
[2021-04-05 05:00] VITALS: BP 136/65
[2021-04-05] MEDS: ALBUTEROL SULF 2.5 MG/0.5ML(0.5%) NEB SOLN NEB SCH ×5 (05:50→22:00)
[2021-04-05] MEDS: InsuLIN REG 1unit/0.01ml Soln (100units/ml) SC SCH ×4 (06:54→21:51)
[2021-04-05] MEDS: SODIUM CHLOR 0.9% PF (SALINE LOCK) 10ML VIAL/SYR IV SCH ×3 (06:54→21:10)
[2021-04-05] MEDS: LEVOTHYROXINE SODIUM 100 MCG TAB PO SCH (06:54)
[2021-04-05] MEDS: ACCU-CHEK COMFORT CURVE STRIP VI SCH ×4 (06:55→21:51)
[2021-04-05 08:15] VITALS: BP 153/69
[2021-04-05] MEDS: FUROSEMIDE 20 MG/2 ML VIAL IV SCH (09:27)
[2021-04-05] MEDS: FAMOTIDINE (10MG/ML) 2ML VL IV SCH ×2 (09:27→21:11)
[2021-04-05] MEDS: METOPROLOL TARTRATE 50 MG TAB PO SCH ×2 (09:27→21:12)
[2021-04-05] MEDS: MORPHINE SULFATE 4 MG/ML SYR/VIAL IV PRN ×2 (09:27→20:58)
[2021-04-05] MEDS: ONDANSETRON HCL 4 MG/2 ML VIAL IV PRN ×3 (09:27→20:59)
[2021-04-05] MEDS: ENOXAPARIN SOD 80 MG/0.8ML SYRINGE SC SCH ×2 (09:28→21:10)
[2021-04-05] MEDS: CLOPIDOGREL BISULFATE 75 MG TAB PO SCH (09:28)
[2021-04-05 12:20] VITALS: BP 126/73
[2021-04-05] MEDS: CLINDAMYCIN 300MG IV 50 ML IV SCH ×2 (14:30→21:10)
[2021-04-05 16:40] VITALS: BP 144/54
[2021-04-05] MEDS: traZODone HCL 50 MG TAB PO SCH (21:11)
[2021-04-05 22:00] VITALS: BP 137/72
[2021-04-05] MEDS ORDERED: ATORVASTATIN 20 MG TAB PO SCH (22:00)
[2021-04-06 05:00] VITALS: BP 137/82
[2021-04-06] MEDS: SODIUM CHLOR 0.9% PF (SALINE LOCK) 10ML VIAL/SYR IV SCH (06:47)
[2021-04-06] MEDS: LEVOTHYROXINE SODIUM 100 MCG TAB PO SCH (06:48)
[2021-04-06] MEDS: CLINDAMYCIN 300MG IV 50 ML IV SCH (06:48)
[2021-04-06] MEDS: InsuLIN REG 1unit/0.01ml Soln (100units/ml) SC SCH (06:48)
[2021-04-06] MEDS: ACCU-CHEK COMFORT CURVE STRIP VI SCH (07:00)
[2021-04-06] MEDS: ALBUTEROL SULF 2.5 MG/0.5ML(0.5%) NEB SOLN NEB SCH ×2 (07:31→10:48)
[2021-04-06] MEDS: ONDANSETRON HCL 4 MG/2 ML VIAL IV PRN (08:16)
[2021-04-06] MEDS: MORPHINE SULFATE 4 MG/ML SYR/VIAL IV PRN (08:17)
[2021-04-06 08:44] VITALS: BP 134/71
[2021-04-06] MEDS: FUROSEMIDE 20 MG/2 ML VIAL IV SCH (10:58)
[2021-04-06] MEDS: FAMOTIDINE (10MG/ML) 2ML VL IV SCH (10:58)
[2021-04-06] MEDS: METOPROLOL TARTRATE 50 MG TAB PO SCH (10:59)
[2021-04-06] MEDS: ENOXAPARIN SOD 80 MG/0.8ML SYRINGE SC SCH (11:00)
[2021-04-06] MEDS: CLOPIDOGREL BISULFATE 75 MG TAB PO SCH (11:00)
[2021-04-06 13:00] VITALS: BP 130/77
== END 2021-04-06 16:12 | disposition left against medical advice (07) | DRG 280 ==
LOC: ER 13:11 → EDBD 13:11 → TELE 20:37 → TELE-CENTR 23:57 → CENTRAL 04-05 12:20 → TELE-CENTR 04-06 04:14
PROVIDERS: ADMIT Nurse Practitioner Family; ATTEND Internal Medicine
DX: I21.4 Non-ST elevation (NSTEMI) myocardial infarction (principal); I50.43 Acute on chronic combined systolic (congestive) and diastolic (congestive) heart failure; E88.09 Other disorders of plasma-protein metabolism, not elsewhere classified; D63.8 Anemia in other chronic diseases classified elsewhere; E03.9 Hypothyroidism, unspecified; E11.51 Type 2 diabetes mellitus with diabetic peripheral angiopathy without gangrene; I11.0 Hypertensive heart disease with heart failure; J44.9 Chronic obstructive pulmonary disease, unspecified; K21.9 Gastro-esophageal reflux disease without esophagitis; E11.42 Type 2 diabetes mellitus with diabetic polyneuropathy; S30.1XXA Contusion of abdominal wall, initial encounter; E78.5 Hyperlipidemia, unspecified; I25.10 Atherosclerotic heart disease of native coronary artery without angina pectoris; Z20.822 Contact with and (suspected) exposure to COVID-19; I25.2 Old myocardial infarction; Z86.73 Personal history of transient ischemic attack (TIA), and cerebral infarction without residual deficits; Z82.49 Family history of ischemic heart disease and other diseases of the circulatory system; Z90.710 Acquired absence of both cervix and uterus; Z90.49 Acquired absence of other specified parts of digestive tract; Z95.1 Presence of aortocoronary bypass graft; Z95.5 Presence of coronary angioplasty implant and graft; Z98.51 Tubal ligation status; Z98.84 Bariatric surgery status; Z88.6 Allergy status to analgesic agent; Y93.89 Activity, other specified; Y92.89 Other specified places as the place of occurrence of the external cause; Y99.8 Other external cause status; Z79.84 Long term (current) use of oral hypoglycemic drugs
CPT/HCPCS: 36415; 71045; 71260; 74177; 80053; 82962; 83036; 83735; 83880; 84439; 84443; 84484; 85025; 85379; 85610; 85730; 87081; 87426; 93005; 93306; 93926; 94640; 96374; 96375; G0378; J1815; J2405; J3490

== ENCOUNTER 2021-09-20 12:50 | Day surgery (SDC) | payer MEDICARE, MEDICAID ==
[2021-09-19 16:05] LABS: Basophils # (auto) 0 10 ^3/uL (0-0.2); Eosinophils # (auto) 0.1 10 ^3/uL (0-0.8); Eosinophils % (auto) 1.5 % (0.0-7.0); Hematocrit 30.9 % (36.0-46.0); Hemoglobin 9.4 g/dL (12.2-16.2); Lymphocytes # (auto) 1.6 10 ^3/uL (0.4-5.4); Mean Corpuscular Hemoglobin 23.1 pg (28.0-32.0); Mean Corpuscular Hgb Conc. 30.3 g/dL (32.0-36.0); Mean Corpuscular Volume 76.2 fL (80.0-100.0); Monocytes # (auto) 0.5 10 ^3/uL (0-1.3); Neutrophils # (auto) 3.2 10 ^3/uL (1.6-8.6)
[2021-09-19 16:07] LABS: Basophils % (auto) 0.5 % (0.0-2.0); Lymphocytes % (auto) 29.7 % (10.0-50.0); Monocytes % (auto) 8.9 % (0.0-12.0); Neutrophils % (auto) 59.4 % (37.0-80.0); Red Blood Cells 4.05 10^6/uL (4.0-5.20); Red Cell Distribution Width 19.7 % (11.8-14.3); White Blood Cell 5.3 10^3/uL (4.4-10.8)
[2021-09-19 16:08] LABS: Urine Bacteria FEW /hpf (None Seen); Urine Blood Negative /uL (Negative); Urine Specific Gravity 1.014 (1.001-1.035); Urine WBC 15 /hpf (0 - 5)
[2021-09-19 16:30] LABS: Albumin 3.2 g/dL (3.4-5.0); Calcium 8.5 mg/dL (8.5-10.1); Potassium 4.5 mmol/L (3.5-5.1)
[2021-09-19 16:33] LABS: BUN/Creatinine Ratio 15.9; Bilirubin, Total 0.3 mg/dL (0.2-1.0); Total Protein 7.2 g/dL (6.4-8.2)
[2021-09-19 16:39] LABS: INR 0.97 (0.9-1.15); Partial Thromboplastin Time 25.8 sec (24.6-33.4)
[~2021-09-20] VITALS: Ht 157.5 cm; Wt 72.6 kg
[2021-09-20] MEDS ORDERED: LIDOCAINE VISCOUS 2% 15ML UD ONE (13:08)
[2021-09-20] MEDS ORDERED: MIDAZOLAM HCL 2MG/2ML 2ml VIAL (1mg/ml) ONE (14:15)
[2021-09-20] MEDS ORDERED: fentaNYL CITRATE 100 MCG/2 ML VL ONE (14:15)
[2021-09-20] MEDS ORDERED: PROPOFOL 10 MG/ML 20 ML IV ONE (14:42)
[2021-09-20] MEDS ORDERED: DexAMETHasone SOD PHOS 10MG/1ML VIAL INJ ONE (14:42)
[2021-09-20 14:45] VITALS: BP 137/63
== END 2021-09-20 15:00 | disposition home or self-care (01) ==
LOC: GI 12:50
PROVIDERS: ATTEND Internal Medicine Gastroenterology
DX: R13.10 Dysphagia, unspecified (principal); K29.50 Unspecified chronic gastritis without bleeding; I11.0 Hypertensive heart disease with heart failure; I50.9 Heart failure, unspecified; I25.10 Atherosclerotic heart disease of native coronary artery without angina pectoris; E11.40 Type 2 diabetes mellitus with diabetic neuropathy, unspecified; E78.5 Hyperlipidemia, unspecified; Z95.1 Presence of aortocoronary bypass graft; Z98.84 Bariatric surgery status; Z90.710 Acquired absence of both cervix and uterus; Z88.6 Allergy status to analgesic agent; Z20.822 Contact with and (suspected) exposure to COVID-19; I25.118 Atherosclerotic heart disease of native coronary artery with other forms of angina pectoris; Z95.5 Presence of coronary angioplasty implant and graft; J43.9 Emphysema, unspecified; G47.30 Sleep apnea, unspecified; Z98.51 Tubal ligation status; F41.9 Anxiety disorder, unspecified; Z86.2 Personal history of diseases of the blood and blood-forming organs and certain disorders involving the immune mechanism; F32.A Depression, unspecified; Z82.49 Family history of ischemic heart disease and other diseases of the circulatory system; Z83.3 Family history of diabetes mellitus; Z80.3 Family history of malignant neoplasm of breast
CPT/HCPCS: 36415; 43239; 43248; 80053; 81001; 82962; 85025; 85610; 85730; 88305; 88342; J1100; J2250; J2704; J3010; J7030; U0003; 99152

== ENCOUNTER 2022-10-05 09:32 | Inpatient (IN) | payer OTHER, MEDICAID ==
[~2022-10-05] VITALS: Ht 167.6 cm; Wt 71.0 kg
[~2022-10-05 09:32] MED LIST changes: +GABA-1251 PO; -GABA400C11 PO; -LOSA-39 PO; +LOSA100T58 PO; -MELO1TAB73 PO; +MELO7.5T7 PO; -TRIA0.1P17 TOP; +TRIA0.1P2 TOP
[2022-10-05 09:40] VITALS: PULSE 70; RESP 14; O2SAT 97
[2022-10-05] MEDS ORDERED: SODIUM CHLORIDE 0.9% 500 ML IVB ONE (10:00)
[2022-10-05] MEDS ORDERED: ONDANSETRON HCL 4 MG/2 ML VIAL IV ONE (10:00)
[2022-10-05 10:08] LABS: Basophils # (auto) 0 10 ^3/uL (0-0.2); Basophils % (auto) 0.5 % (0.0-2.0); Eosinophils # (auto) 0 10 ^3/uL (0-0.8); Hemoglobin 10.1 g/dL (12.2-16.2); Lymphocytes # (auto) 1.1 10 ^3/uL (0.4-5.4); Nucleated Red Blood Cells % 0.1 %
[2022-10-05 10:11] LABS: Eosinophils % (auto) 0.5 % (0.0-7.0); Hematocrit 32.4 % (36.0-46.0); Lymphocytes % (auto) 15.1 % (10.0-50.0); Mean Corpuscular Hemoglobin 23.5 pg (28.0-32.0); Mean Corpuscular Hgb Conc. 31.1 g/dL (32.0-36.0); Mean Corpuscular Volume 75.4 fL (80.0-100.0); Monocytes # (auto) 0.5 10 ^3/uL (0-1.3); Monocytes % (auto) 7.3 % (0.0-12.0); Neutrophils # (auto) 5.4 10 ^3/uL (1.6-8.6); Neutrophils % (auto) 76.6 % (37.0-80.0); Red Blood Cells 4.29 10^6/uL (4.0-5.20)
[2022-10-05 10:14] LABS: Red Cell Distribution Width 20.5 % (11.8-14.3)
[2022-10-05 10:24] LABS: Albumin 3.9 g/dL (3.4-5.0); Anion Gap 5 (5-15); Blood Alcohol < 3.0 mg/dL (<10); Blood Urea Nitrogen 21 mg/dL (7-18); Calcium 9.4 mg/dL (8.5-10.1); Carbon Dioxide 27 mmol/L (21-32); Chloride 108 mmol/L (98-107); Glucose 143 mg/dL (74-106); Magnesium 2.5 mg/dL (1.6-2.6); Potassium 4.4 mmol/L (3.5-5.1); Sodium 140 mmol/L (136-145)
[2022-10-05 10:27] LABS: Alanine Aminotransferase 22 U/L (13-56); Alkaline Phosphatase 170 U/L (45-117); Aspartate Aminotransferase 15 U/L (15-37); BUN/Creatinine Ratio 15.9 (10.0-20.0); Bilirubin, Total 0.2 mg/dL (0.2-1.0); GFR African American 52 mL/min; GFR Non-African American 43 mL/min; Total Protein 8.7 g/dL (6.4-8.2)
[2022-10-05 12:07] LABS: Urine Bacteria NONE SEEN /hpf (None Seen); Urine Blood Negative /uL (Negative); Urine Clarity Clear (Clear); Urine Color Yellow (Yellow); Urine Protein, UAD TRACE (Negative); Urine Specific Gravity 1.012 (1.001-1.035); Urine Urobilinogen Normal (Negative); Urine WBC <1 /hpf (0 - 5)
[2022-10-05 12:27] LABS: Alcohol, Urine < 3.0 mg/dL (0-10); Amphetamine Screen, Urine NEGATIVE (NEGATIVE); Barbiturate Scree,Urine NEGATIVE (NEGATIVE); Benzodiazephine Screen, Urine NEGATIVE (NEGATIVE); Cannabinoid Screen, Urine NEGATIVE (NEGATIVE); Cocaine Screen, Urine NEGATIVE (NEGATIVE); Phencyclidine Screen, Urine NEGATIVE (NEGATIVE)
[2022-10-05 12:35] LABS: Opiate Scree,Urine POSITIVE (NEGATIVE)
[2022-10-05] MEDS ORDERED: GABAPENTIN 400 MG CAP PO ONE (13:00)
[2022-10-05] MEDS ORDERED: OXYCODONE W/ ACETAMINOPHEN 5/325MG TABLET PO ONE (13:00)
[2022-10-05] MEDS ORDERED: CYCLOBENZAPRINE HCL 10 MG TAB PO ONE (13:00)
[2022-10-05] MEDS ORDERED: ACETAMINOPHEN 325 MG TAB PO PRN (13:30)
[2022-10-05] MEDS ORDERED: MORPHINE SULFATE INJ 2 MG/ml SYRG IV PRN (13:30)
[2022-10-05] MEDS ORDERED: NITROGLYCERIN 0.4 MG SL TAB SL PRN (13:30)
[2022-10-05] MEDS ORDERED: OXYCODONE PO PRN (13:45)
[2022-10-05] MEDS ORDERED: ALBUTEROL SULF 2.5 MG/0.5ML(0.5%) NEB SOLN NEB PRN (13:45)
[2022-10-05] MEDS ORDERED: FUROSEMIDE 20 MG TAB PO PRN (13:45)
[2022-10-05] MEDS ORDERED: CYANOCOBALAMIN 1000 MCG IJ SCH (13:45)
[2022-10-05] MEDS ORDERED: DEXTROSE (50%) 50ML SYRG IV PRN (13:45)
[2022-10-05] MEDS ORDERED: ACETAMINOPHEN PO PRN (13:45)
[2022-10-05] MEDS: CYCLOBENZAPRINE HCL 10 MG TAB PO SCH ×2 (14:00→21:41)
[2022-10-05] MEDS: GABAPENTIN 300 MG CAP PO SCH ×2 (14:00→21:41)
[2022-10-05 16:46] VITALS: BP 163/50; PULSE 59; RESP 10; TEMP 97.2; O2SAT 99
[2022-10-05 17:00] VITALS: BP 91/47; PULSE 79; TEMP 98.6; O2SAT 96
[2022-10-05] MEDS: InsuLIN REG 1unit/0.01ml Soln (100units/ml) SC SCH ×2 (17:00→21:36)
[2022-10-05] MEDS: ACCU-CHEK COMFORT CURVE STRIP VI SCH ×2 (17:03→21:35)
[2022-10-05 18:59] VITALS: PULSE 58; RESP 20; O2SAT 100
[2022-10-05 19:35] VITALS: PULSE 64; RESP 11; O2SAT 100
[2022-10-05] MEDS: RANOLAZINE ER 500 MG TAB PO SCH (21:42)
[2022-10-05] MEDS ORDERED: ZOLPIDEM TARTRATE 5 MG TAB PO SCH (22:00)
[2022-10-05] MEDS ORDERED: ONDANSETRON HCL 4 MG/2 ML VIAL IV PRN (22:15)
[2022-10-06] VITALS (13 sets, daily range): BP systolic 91–141; BP diastolic 46–62; PULSE 61–79; RESP 12–22; TEMP 97.6–98.8; O2SAT 95–100
[2022-10-06] MEDS ORDERED: NALOXONE HCL 0.4 MG/ML VIAL IV ONE (01:30)
[2022-10-06] MEDS ORDERED: TICA1TAB PO (05:25)
[2022-10-06 06:02] LABS: Basophils # (auto) 0 10 ^3/uL (0-0.2); Basophils % (auto) 0.6 % (0.0-2.0); Eosinophils # (auto) 0.1 10 ^3/uL (0-0.8); Hemoglobin 9.4 g/dL (12.2-16.2); Lymphocytes # (auto) 1.4 10 ^3/uL (0.4-5.4); Monocytes # (auto) 0.6 10 ^3/uL (0-1.3)
[2022-10-06 06:05] LABS: Eosinophils % (auto) 1.8 % (0.0-7.0); Hematocrit 30.4 % (36.0-46.0); Lymphocytes % (auto) 22.6 % (10.0-50.0); Mean Corpuscular Hemoglobin 23.3 pg (28.0-32.0); Mean Corpuscular Hgb Conc. 30.8 g/dL (32.0-36.0); Mean Corpuscular Volume 75.4 fL (80.0-100.0); Monocytes % (auto) 9.4 % (0.0-12.0); Neutrophils % (auto) 65.6 % (37.0-80.0); Nucleated Red Blood Cells % 0.2 %; Red Blood Cells 4.03 10^6/uL (4.0-5.20)
[2022-10-06] MEDS: CYCLOBENZAPRINE HCL 10 MG TAB PO SCH ×3 (06:09→22:06)
[2022-10-06] MEDS: LEVOTHYROXINE SODIUM 50 MCG TAB PO SCH (06:09)
[2022-10-06] MEDS: GABAPENTIN 300 MG CAP PO SCH ×3 (06:09→22:06)
[2022-10-06] MEDS: ACCU-CHEK COMFORT CURVE STRIP VI SCH ×4 (06:09→22:06)
[2022-10-06] MEDS: InsuLIN REG 1unit/0.01ml Soln (100units/ml) SC SCH ×4 (06:13→22:07)
[2022-10-06 06:32] LABS: Potassium 4.4 mmol/L (3.5-5.1)
[2022-10-06 06:47] LABS: BUN/Creatinine Ratio 16.7 (10.0-20.0); Bilirubin, Total 0.3 mg/dL (0.2-1.0); Calcium 8.7 mg/dL (8.5-10.1); Total Protein 6.8 g/dL (6.4-8.2)
[2022-10-06] MEDS: MELOXICAM PO SCH (10:00)
[2022-10-06] MEDS: ISOSORBIDE MONONITRATE ER 60 MG TAB PO SCH (11:26)
[2022-10-06] MEDS: LOSARTAN POTASSIUM 50 MG TAB PO SCH (11:27)
[2022-10-06] MEDS: CLOPIDOGREL BISULFATE 75 MG TAB PO SCH (11:28)
[2022-10-06] MEDS: PRAVASTATIN SODIUM 20 MG TAB PO SCH (11:30)
[2022-10-06] MEDS: PANTOPRAZOLE 40 MG TAB PO SCH (11:30)
[2022-10-06] MEDS: ENOXAPARIN SOD 40 MG/0.4 ML SYRINGE SC SCH (11:31)
[2022-10-06] MEDS: RANOLAZINE ER 500 MG TAB PO SCH ×2 (11:31→22:06)
[2022-10-06 12:55] LABS: Magnesium 2.6 mg/dL (1.6-2.6)
[2022-10-07 05:00] VITALS: BP 120/55; PULSE 63; RESP 20; TEMP 98; O2SAT 95
[2022-10-07] MEDS: GABAPENTIN 300 MG CAP PO SCH (05:52)
[2022-10-07] MEDS: CYCLOBENZAPRINE HCL 10 MG TAB PO SCH (05:52)
[2022-10-07] MEDS: LEVOTHYROXINE SODIUM 50 MCG TAB PO SCH (05:53)
[2022-10-07] MEDS: InsuLIN REG 1unit/0.01ml Soln (100units/ml) SC SCH ×2 (06:15→11:30)
[2022-10-07] MEDS: ACCU-CHEK COMFORT CURVE STRIP VI SCH ×2 (06:15→12:41)
[2022-10-07 07:00] LABS: Basophils # (auto) 0 10 ^3/uL (0-0.2); Basophils % (auto) 0.7 % (0.0-2.0); Eosinophils # (auto) 0.1 10 ^3/uL (0-0.8); Lymphocytes # (auto) 1.6 10 ^3/uL (0.4-5.4); Mean Corpuscular Hemoglobin 23.5 pg (28.0-32.0); Mean Corpuscular Hgb Conc. 31.7 g/dL (32.0-36.0); Nucleated Red Blood Cells % 0.1 %; White Blood Cell 6.8 10^3/uL (4.4-10.8)
[2022-10-07 07:02] LABS: Eosinophils % (auto) 1.3 % (0.0-7.0); Hematocrit 28.6 % (36.0-46.0); Hemoglobin 9.1 g/dL (12.2-16.2); Lymphocytes % (auto) 23.6 % (10.0-50.0); Mean Corpuscular Volume 74.2 fL (80.0-100.0); Monocytes # (auto) 0.7 10 ^3/uL (0-1.3); Monocytes % (auto) 9.7 % (0.0-12.0); Neutrophils # (auto) 4.4 10 ^3/uL (1.6-8.6); Neutrophils % (auto) 64.7 % (37.0-80.0); Red Blood Cells 3.86 10^6/uL (4.0-5.20); Red Cell Distribution Width 20.5 % (11.8-14.3)
[2022-10-07 07:32] LABS: Albumin 2.9 g/dL (3.4-5.0); Potassium 4.7 mmol/L (3.5-5.1)
[2022-10-07 07:36] LABS: BUN/Creatinine Ratio 19.5 (10.0-20.0); Bilirubin, Total 0.3 mg/dL (0.2-1.0); Total Protein 6.8 g/dL (6.4-8.2)
[2022-10-07 08:00] VITALS: BP 130/69; PULSE 50; PULSE 70; RESP 20; TEMP 97.5; O2SAT 95; O2SAT 96
[2022-10-07 10:00] VITALS: O2SAT 100
[2022-10-07] MEDS: MELOXICAM PO SCH (10:00)
[2022-10-07] MEDS: CLOPIDOGREL BISULFATE 75 MG TAB PO SCH (10:00)
[2022-10-07] MEDS: RANOLAZINE ER 500 MG TAB PO SCH (10:18)
[2022-10-07] MEDS: ISOSORBIDE MONONITRATE ER 60 MG TAB PO SCH (10:19)
[2022-10-07] MEDS: PRAVASTATIN SODIUM 20 MG TAB PO SCH (10:19)
[2022-10-07] MEDS: PANTOPRAZOLE 40 MG TAB PO SCH (10:19)
[2022-10-07] MEDS: LOSARTAN POTASSIUM 50 MG TAB PO SCH (10:19)
[2022-10-07] MEDS: ENOXAPARIN SOD 40 MG/0.4 ML SYRINGE SC SCH (10:20)
[2022-10-07 13:00] VITALS: BP 107/60; PULSE 60; RESP 20; TEMP 97.6; O2SAT 78
[2022-10-07 13:12] VITALS: BP 130/69; TEMP 36.4
== END 2022-10-07 14:55 | disposition hospice, home (50) | DRG 917 ==
LOC: EDBD 09:32 → ER 09:32 → TELE 13:30 → TELE-WESTW 23:05
PROVIDERS: ADMIT Internal Medicine; ATTEND Internal Medicine
PROC: 05HA33Z Insertion of Infusion Device into Left Brachial Vein, Percutaneous Approach (ICD-10-PCS; principal; 2022-10-05)
PROC: B54NZZA Ultrasonography of Left Upper Extremity Veins, Guidance (ICD-10-PCS; 2022-10-05)
DX: T40.2X1A Poisoning by other opioids, accidental (unintentional), initial encounter (principal); G92.8 Other toxic encephalopathy; J96.00 Acute respiratory failure, unspecified whether with hypoxia or hypercapnia; I50.42 Chronic combined systolic (congestive) and diastolic (congestive) heart failure; E11.9 Type 2 diabetes mellitus without complications; E78.5 Hyperlipidemia, unspecified; I11.0 Hypertensive heart disease with heart failure; J43.9 Emphysema, unspecified; I25.10 Atherosclerotic heart disease of native coronary artery without angina pectoris; K21.9 Gastro-esophageal reflux disease without esophagitis; Z51.5 Encounter for palliative care; Z82.49 Family history of ischemic heart disease and other diseases of the circulatory system; Z86.73 Personal history of transient ischemic attack (TIA), and cerebral infarction without residual deficits; Z88.6 Allergy status to analgesic agent; Z90.710 Acquired absence of both cervix and uterus; Z95.1 Presence of aortocoronary bypass graft; Z99.81 Dependence on supplemental oxygen; Z98.51 Tubal ligation status; Z90.49 Acquired absence of other specified parts of digestive tract; Y92.89 Other specified places as the place of occurrence of the external cause
CPT/HCPCS: 36415; 36600; 70450; 71045; 80053; 80061; 80307; 80320; 81001; 82306; 82607; 82805; 82962; 83036; 83735; 83880; 84443; 85025; 93005; 93306; 94640; 96374; G0378; J1815; J2405

== ENCOUNTER 2023-02-03 19:39 | Emergency (ER) | payer OTHER ==
[~2023-02-03] VITALS: Ht 160 cm; Wt 70.0 kg
[~2023-02-03 19:39] MED LIST changes: -CLOP75TA70 PO; +METH4PAK PO; +TICA1TAB PO; -TRAZ1TAB12 PO
[2023-02-03 20:32] LABS: Basophils # (auto) 0.1 10 ^3/uL (0-0.2); Basophils % (auto) 0.8 % (0.0-2.0); Eosinophils # (auto) 0.1 10 ^3/uL (0-0.8); Eosinophils % (auto) 1.7 % (0.0-7.0); Hemoglobin 10.1 g/dL (12.2-16.2); Lymphocytes # (auto) 2.5 10 ^3/uL (0.4-5.4); Mean Corpuscular Hemoglobin 24.4 pg (28.0-32.0); Mean Corpuscular Hgb Conc. 30.5 g/dL (32.0-36.0); Monocytes # (auto) 0.5 10 ^3/uL (0-1.3); Monocytes % (auto) 6.6 % (0.0-12.0); Neutrophils # (auto) 4.8 10 ^3/uL (1.6-8.6); Neutrophils % (auto) 59.9 % (37.0-80.0); Nucleated Red Blood Cells % 0.1 %; Red Blood Cells 4.13 10^6/uL (4.0-5.20); Red Cell Distribution Width 21.5 % (11.8-14.3)
[2023-02-03 20:54] LABS: Alanine Aminotransferase 11 U/L (7-40); Albumin 4.5 g/dL (3.2-4.8); Alkaline Phosphatase 153 U/L (46-116); Anion Gap 7 (5-15); Aspartate Aminotransferase 15 U/L (13-40); BUN/Creatinine Ratio 12.2 (10.0-20.0); Bilirubin, Total 0.3 mg/dL (0.2-1.0); Blood Urea Nitrogen 15 mg/dL (9-23); Calcium 9.1 mg/dL (8.7-10.4); Carbon Dioxide 23 mmol/L (20-30); Chloride 110 mmol/L (98-107); Glucose 132 mg/dL (74-106); Magnesium 2.2 mg/dL (1.6-2.6); Potassium 4.7 mmol/L (3.5-5.1); Sodium 140 mmol/L (136-145); Total Protein 7.7 g/dL (5.7-8.2)
[2023-02-03 21:07] LABS: CRP High Sensitivity 0.14 mg/dL (<1.0)
[2023-02-03 21:29] LABS: Erythrocyte Sedimentation Rate 33 mm/hr (0-20)
[2023-02-03] MEDS ORDERED: HYDROmorphone HCL 2 MG/ML VL/or syr IM ONE (22:00)
[2023-02-03] MEDS ORDERED: HYDROmorphone HCL 2 MG/ML VL/or syr ONE (22:44)
[2023-02-03 22:52] LABS: Urine Bacteria FEW /hpf (None Seen); Urine Blood Negative /uL (Negative); Urine Clarity Clear (Clear); Urine Color Yellow (Yellow); Urine Protein, UAD Negative (Negative); Urine Specific Gravity 1.015 (1.001-1.035); Urine WBC 2 /hpf (0 - 5); Urine pH 5.5 (5.0-8.0)
[2023-02-04] MEDS ORDERED: ACE3T PO (01:13)
[2023-02-04] MEDS ORDERED: CEPH500C PO (01:13)
[2023-02-04 01:32] VITALS: BP 151/73; PULSE 57; RESP 18; TEMP 98.4; O2SAT 100
== END 2023-02-04 01:33 | disposition home or self-care (01) ==
LOC: ER 19:39
DX: L03.115 Cellulitis of right lower limb (principal); R06.02 Shortness of breath; R07.89 Other chest pain; I11.0 Hypertensive heart disease with heart failure; I50.9 Heart failure, unspecified; I25.10 Atherosclerotic heart disease of native coronary artery without angina pectoris; I25.2 Old myocardial infarction; J44.9 Chronic obstructive pulmonary disease, unspecified; K21.9 Gastro-esophageal reflux disease without esophagitis; E78.5 Hyperlipidemia, unspecified; E11.9 Type 2 diabetes mellitus without complications; E03.9 Hypothyroidism, unspecified; Z86.73 Personal history of transient ischemic attack (TIA), and cerebral infarction without residual deficits; Z95.1 Presence of aortocoronary bypass graft; Z90.49 Acquired absence of other specified parts of digestive tract; Z90.710 Acquired absence of both cervix and uterus; Z87.891 Personal history of nicotine dependence; Z79.899 Other long term (current) drug therapy; Z88.6 Allergy status to analgesic agent; Z91.018 Allergy to other foods
CPT/HCPCS: 36415; 73700; 80053; 81001; 83735; 83880; 84484; 85025; 85652; 86141; 93005; 96372; 99285; J1170

== ENCOUNTER 2023-02-07 10:35 | Inpatient (IN) | payer OTHER ==
[~2023-02-07] VITALS: Ht 157.5 cm; Wt 62.0 kg
[~2023-02-07 10:35] MED LIST changes: +ACE3T PO; +CEPH500C PO
[2023-02-07 12:40] LABS: Alanine Aminotransferase 23 U/L (7-40); Albumin 4.5 g/dL (3.2-4.8); Alkaline Phosphatase 156 U/L (46-116); Anion Gap 10 (5-15); Aspartate Aminotransferase 38 U/L (13-40); BUN/Creatinine Ratio 16.5 (10.0-20.0); Bilirubin, Total 0.2 mg/dL (0.2-1.0); Blood Urea Nitrogen 16 mg/dL (9-23); CRP High Sensitivity 0.29 mg/dL (<1.0); Calcium 9.4 mg/dL (8.5-10.1); Carbon Dioxide 24 mmol/L (20-30); Chloride 107 mmol/L (98-107); Glucose 146 mg/dL (74-106); Potassium 4.5 mmol/L (3.5-5.1); Sodium 141 mmol/L (136-145); Total Protein 7.3 g/dL (5.7-8.2)
[2023-02-07 12:53] LABS: Erythrocyte Sedimentation Rate 28 mm/hr (0-20)
[2023-02-07 13:06] LABS: Basophils # (auto) 0.1 10 ^3/uL (0-0.2); Basophils % (auto) 0.9 % (0.0-2.0); Eosinophils # (auto) 0.1 10 ^3/uL (0-0.8); Eosinophils % (auto) 1.4 % (0.0-7.0); Hemoglobin 10.2 g/dL (12.2-16.2); Lymphocytes # (auto) 1.6 10 ^3/uL (0.4-5.4); Lymphocytes % (auto) 19.7 % (10.0-50.0); Mean Corpuscular Hemoglobin 24.6 pg (28.0-32.0); Mean Corpuscular Volume 79.4 fL (80.0-100.0); Monocytes # (auto) 0.3 10 ^3/uL (0-1.3); Monocytes % (auto) 4.3 % (0.0-12.0); Neutrophils # (auto) 5.8 10 ^3/uL (1.6-8.6); Neutrophils % (auto) 73.7 % (37.0-80.0); Nucleated Red Blood Cells % 0.1 %; Red Blood Cells 4.15 10^6/uL (4.0-5.20); White Blood Cell 7.9 10^3/uL (4.4-10.8)
[2023-02-07 13:08] LABS: Red Cell Distribution Width 20.7 % (11.8-14.3)
[2023-02-07] MEDS ORDERED: VANCOMYCIN PER PHARMACY 0 MG IV SCH (14:00)
[2023-02-07] MEDS ORDERED: ONDANSETRON HCL 4 MG/2 ML VIAL IV PRN (14:00)
[2023-02-07] MEDS ORDERED: MORPHINE SULFATE INJ 2 MG/ml SYRG IV PRN (14:00)
[2023-02-07] MEDS ORDERED: ACETAMINOPHEN 325 MG TAB PO PRN (14:00)
[2023-02-07] MEDS: VANCOMYCIN 1GM/200ML 250 ML IV ONE ×2 (14:06→16:32)
[2023-02-07] MEDS ORDERED: DEXTROSE (50%) 50ML SYRG IV PRN (15:00)
[2023-02-07] MEDS: HYDROcodone-ACET 5/325MG TAB PO PRN (16:50)
[2023-02-07 18:20] VITALS: PULSE 82; RESP 18; O2SAT 98
[2023-02-07] MEDS: IPRATROPIUM BROM 0.5 MG/2.5ML INH SOL NEB PRN (18:37)
[2023-02-07] MEDS: BUDESONIDE (INHALATION) 0.5 MG/2 ML NEB NEB SCH (18:37)
[2023-02-07] MEDS: ALBUTEROL SULF 2.5 MG/0.5ML(0.5%) NEB SOLN NEB PRN (18:38)
[2023-02-07 20:19] VITALS: BP 168/54; PULSE 82; RESP 18; TEMP 97.2; O2SAT 98
[2023-02-07] MEDS: InsuLIN REG 1unit/0.01ml Soln (100units/ml) SC SCH ×2 (22:18→23:40)
[2023-02-07] MEDS: ACCU-CHEK COMFORT CURVE STRIP VI SCH ×2 (22:18→23:40)
[2023-02-07] MEDS: CEFEPIME 1GM/ 50ML 50 ML IV SCH ×2 (22:19→23:58)
[2023-02-07 23:30] VITALS: PULSE 77; RESP 20; O2SAT 96
[2023-02-07] MEDS: TICAGRELOR 60 MG TAB PO SCH (23:51)
[2023-02-07] MEDS: traZODone HCL 50 MG TAB PO SCH (23:57)
[2023-02-07] MEDS: MORPHINE SULFATE INJ 2 MG/ml SYRG IV PRN (23:58)
[2023-02-07] MEDS: ATORVASTATIN 20 MG TAB PO SCH (23:58)
[2023-02-08] VITALS (14 sets, daily range): BP systolic 102–201; BP diastolic 69–87; PULSE 69–90; RESP 16–21; TEMP 97.9–98.7; O2SAT 94–100
[2023-02-08] MEDS ORDERED: hydrALAZINE HCL 20 MG/ML VL IV ONE (01:45)
[2023-02-08] MEDS: NITROGLYCERIN 0.4 MG SL TAB SL PRN ×3 (03:44→04:01)
[2023-02-08 04:12] LABS: Basophils # (auto) 0 10 ^3/uL (0-0.2); Eosinophils # (auto) 0.1 10 ^3/uL (0-0.8); Hemoglobin 10.1 g/dL (12.2-16.2); Monocytes # (auto) 0.6 10 ^3/uL (0-1.3)
[2023-02-08 04:14] LABS: Basophils % (auto) 0.5 % (0.0-2.0); Eosinophils % (auto) 1.3 % (0.0-7.0); Lymphocytes # (auto) 1.7 10 ^3/uL (0.4-5.4); Lymphocytes % (auto) 20.9 % (10.0-50.0); Mean Corpuscular Hemoglobin 25.5 pg (28.0-32.0); Mean Corpuscular Hgb Conc. 31.6 g/dL (32.0-36.0); Mean Corpuscular Volume 80.8 fL (80.0-100.0); Monocytes % (auto) 7.4 % (0.0-12.0); Neutrophils # (auto) 5.6 10 ^3/uL (1.6-8.6); Neutrophils % (auto) 69.9 % (37.0-80.0); Red Blood Cells 3.96 10^6/uL (4.0-5.20); Red Cell Distribution Width 20.9 % (11.8-14.3)
[2023-02-08 04:28] LABS: INR 1.01 (0.9-1.15); Partial Thromboplastin Time 25.6 SEC (24.5-34.5); Prothrombin Time 10.6 sec (9.3-11.8)
[2023-02-08 04:30] LABS: Alanine Aminotransferase 22 U/L (7-40); Albumin 4.3 g/dL (3.2-4.8); Alkaline Phosphatase 147 U/L (46-116); Anion Gap 8 (5-15); Aspartate Aminotransferase 36 U/L (13-40); BUN/Creatinine Ratio 16.9 (10.0-20.0); Bilirubin, Total 0.3 mg/dL (0.2-1.0); Blood Urea Nitrogen 15 mg/dL (9-23); Calcium 9.2 mg/dL (8.7-10.4); Carbon Dioxide 23 mmol/L (20-30); Chloride 109 mmol/L (98-107); Glucose 161 mg/dL (74-106); Potassium 4.4 mmol/L (3.5-5.1); Sodium 140 mmol/L (136-145)
[2023-02-08] MEDS ORDERED: MORPHINE SULFATE INJ 2 MG/ml SYRG IV ONE (05:15)
[2023-02-08] MEDS: InsuLIN REG 1unit/0.01ml Soln (100units/ml) SC SCH ×4 (06:11→22:00)
[2023-02-08] MEDS: LEVOTHYROXINE SODIUM 25 MCG TAB PO SCH (06:17)
[2023-02-08] MEDS: LEVOTHYROXINE SODIUM 100 MCG TAB PO SCH (06:18)
[2023-02-08] MEDS: ACCU-CHEK COMFORT CURVE STRIP VI SCH ×4 (06:18→23:27)
[2023-02-08] MEDS: CEFEPIME 1GM/ 50ML 50 ML IV SCH ×2 (06:39→14:05)
[2023-02-08] MEDS: IPRATROPIUM BROM 0.5 MG/2.5ML INH SOL NEB PRN ×2 (07:41→22:34)
[2023-02-08] MEDS: PANTOPRAZOLE 40 MG TAB PO SCH (09:24)
[2023-02-08] MEDS: METOPROLOL SUCCINATE XL 50 MG TAB PO SCH (09:25)
[2023-02-08] MEDS: FUROSEMIDE 40 MG TAB PO SCH (09:27)
[2023-02-08] MEDS ORDERED: ERGOCALCIFEROL 50,000 UNIT(1.25MG) CAP PO SCH ×2 (09:30→09:45)
[2023-02-08] MEDS: LOSARTAN POTASSIUM 50 MG TAB PO SCH (09:30)
[2023-02-08] MEDS: TICAGRELOR 60 MG TAB PO SCH ×2 (10:00→22:00)
[2023-02-08] MEDS ORDERED: VANCOMYCIN 750mg/250ml 250 ML IV SCH ×2 (14:00→23:30)
[2023-02-08] MEDS ORDERED: ANGIOMAX 250 MG VIAL IV ONE ×2 (16:08→19:17)
[2023-02-08] MEDS ORDERED: fentaNYL CITRATE 100 MCG/2 ML VL ONE ×2 (16:08→19:59)
[2023-02-08] MEDS ORDERED: SODIUM CHL 0.9% 50 ML ONE ×2 (16:09→19:17)
[2023-02-08] MEDS ORDERED: IODIXANOL 320MG/ML 100ML BTL IV ONE (16:09)
[2023-02-08] MEDS ORDERED: MIDAZOLAM HCL 2MG/2ML 2ml VIAL (1mg/ml) ONE (16:09)
[2023-02-08] MEDS ORDERED: LIDOCAINE 2%HCL (LOCAL ANESTH.) INJ 20ML MDV ONE (16:09)
[2023-02-08] MEDS ORDERED: TICAGRELOR 90 MG TAB ONE (17:14)
[2023-02-08] MEDS ORDERED: ASPirin 81 mg TAB ONE (20:57)
[2023-02-08] MEDS ORDERED: ASPirin 81 mg TAB PO ONE (21:00)
[2023-02-08] MEDS: TICAGRELOR 90 MG TAB PO SCH (22:00)
[2023-02-08] MEDS: BUDESONIDE (INHALATION) 0.5 MG/2 ML NEB NEB SCH ×2 (22:34→22:54)
[2023-02-08] MEDS: ALBUTEROL SULF 2.5 MG/0.5ML(0.5%) NEB SOLN NEB PRN (22:34)
[2023-02-08] MEDS: ATORVASTATIN 20 MG TAB PO SCH (23:27)
[2023-02-08] MEDS: HYDROcodone-ACET 5/325MG TAB PO PRN (23:29)
[2023-02-09] VITALS (8 sets, daily range): BP systolic 131–147; BP diastolic 58–85; PULSE 80–97; RESP 18–19; TEMP 37.4; O2SAT 93–100
[2023-02-09] MEDS: traZODone HCL 50 MG TAB PO SCH (01:30)
[2023-02-09] MEDS: CEFEPIME 1GM/ 50ML 50 ML IV SCH ×2 (02:42→13:49)
[2023-02-09] MEDS: LEVOTHYROXINE SODIUM 100 MCG TAB PO SCH (06:43)
[2023-02-09] MEDS: LEVOTHYROXINE SODIUM 25 MCG TAB PO SCH (06:43)
[2023-02-09] MEDS: ACCU-CHEK COMFORT CURVE STRIP VI SCH ×2 (06:43→12:10)
[2023-02-09 07:35] LABS: Alanine Aminotransferase 21 U/L (7-40); Albumin 4.2 g/dL (3.2-4.8); Alkaline Phosphatase 147 U/L (46-116); Anion Gap 10 (5-15); Aspartate Aminotransferase 31 U/L (13-40); BUN/Creatinine Ratio 8.5 (10.0-20.0); Bilirubin, Total 0.3 mg/dL (0.2-1.0); Blood Urea Nitrogen 7 mg/dL (9-23); Calcium 9.5 mg/dL (8.5-10.1); Carbon Dioxide 23 mmol/L (20-30); Chloride 107 mmol/L (98-107); Glucose 108 mg/dL (74-106); Potassium 4.4 mmol/L (3.5-5.1); Sodium 140 mmol/L (136-145)
[2023-02-09 07:36] LABS: Total Protein 7.1 g/dL (5.7-8.2)
[2023-02-09 07:50] LABS: Basophils # (auto) 0 10 ^3/uL (0-0.2); Basophils % (auto) 0.5 % (0.0-2.0); Eosinophils # (auto) 0.1 10 ^3/uL (0-0.8); Eosinophils % (auto) 1.1 % (0.0-7.0); Hemoglobin 10.4 g/dL (12.2-16.2); Lymphocytes # (auto) 0.7 10 ^3/uL (0.4-5.4); Lymphocytes % (auto) 9.4 % (10.0-50.0); Mean Corpuscular Hgb Conc. 30.7 g/dL (32.0-36.0); Mean Corpuscular Volume 81.4 fL (80.0-100.0); Monocytes # (auto) 0.6 10 ^3/uL (0-1.3); Monocytes % (auto) 8.2 % (0.0-12.0); Neutrophils # (auto) 5.9 10 ^3/uL (1.6-8.6); Neutrophils % (auto) 80.8 % (37.0-80.0); Nucleated Red Blood Cells % 0.2 %; Red Blood Cells 4.18 10^6/uL (4.0-5.20); Red Cell Distribution Width 20.1 % (11.8-14.3); White Blood Cell 7.2 10^3/uL (4.4-10.8)
[2023-02-09] MEDS ORDERED: amLODIPine BESYLATE 5 MG TAB PO SCH (10:00)
[2023-02-09] MEDS: FUROSEMIDE 40 MG TAB PO SCH (10:00)
[2023-02-09] MEDS ORDERED: ASPirin 81 mg TAB PO SCH (10:00)
[2023-02-09] MEDS: MORPHINE SULFATE INJ 2 MG/ml SYRG IV PRN (10:17)
[2023-02-09] MEDS: PANTOPRAZOLE 40 MG TAB PO SCH (10:19)
[2023-02-09] MEDS: LOSARTAN POTASSIUM 50 MG TAB PO SCH (10:20)
[2023-02-09] MEDS: TICAGRELOR 90 MG TAB PO SCH (10:21)
[2023-02-09] MEDS: METOPROLOL SUCCINATE XL 50 MG TAB PO SCH (10:23)
[2023-02-09] MEDS: ALBUTEROL SULF 2.5 MG/0.5ML(0.5%) NEB SOLN NEB PRN (10:59)
[2023-02-09] MEDS: BUDESONIDE (INHALATION) 0.5 MG/2 ML NEB NEB SCH (11:00)
[2023-02-09] MEDS ORDERED: ERGO1CAP23 PO (11:02)
[2023-02-09] MEDS ORDERED: CLIN-203 PO (11:02)
[2023-02-09] MEDS ORDERED: TICA1TAB PO (11:02)
[2023-02-09] MEDS: InsuLIN REG 1unit/0.01ml Soln (100units/ml) SC SCH (12:13)
[2023-02-09] MEDS ORDERED: RIVA2.5T PO (15:21)
[2023-02-09] MEDS ORDERED: RIVAROXABAN 2.5 MG TAB PO SCH (22:00)
[2023-02-09] MEDS ORDERED: VANCOMYCIN 750mg/250ml 250 ML IV SCH (23:00)
== END 2023-02-09 17:47 | disposition hospice, home (50) | DRG 253 ==
LOC: ER 10:35 → OVERFLOW 14:00 → WEST WING 02-08 02:38 → TELE-WESTW 02-08 02:40
PROVIDERS: ADMIT Internal Medicine; ATTEND Internal Medicine
PROC: 047K3Z1 Dilation of Right Femoral Artery using Drug-Coated Balloon, Percutaneous Approach (ICD-10-PCS; principal; 2023-02-08)
PROC: B41GYZZ Fluoroscopy of Left Lower Extremity Arteries using Other Contrast (ICD-10-PCS; 2023-02-08)
PROC: B41FYZZ Fluoroscopy of Right Lower Extremity Arteries using Other Contrast (ICD-10-PCS; 2023-02-08)
DX: T82.856A Stenosis of peripheral vascular stent, initial encounter (principal); I50.32 Chronic diastolic (congestive) heart failure; E11.51 Type 2 diabetes mellitus with diabetic peripheral angiopathy without gangrene; L03.031 Cellulitis of right toe; I11.0 Hypertensive heart disease with heart failure; Z95.1 Presence of aortocoronary bypass graft; I25.10 Atherosclerotic heart disease of native coronary artery without angina pectoris; E78.5 Hyperlipidemia, unspecified; L97.519 Non-pressure chronic ulcer of other part of right foot with unspecified severity; E11.621 Type 2 diabetes mellitus with foot ulcer; E11.40 Type 2 diabetes mellitus with diabetic neuropathy, unspecified; G89.29 Other chronic pain; K21.9 Gastro-esophageal reflux disease without esophagitis; E03.9 Hypothyroidism, unspecified; E55.9 Vitamin D deficiency, unspecified; J43.9 Emphysema, unspecified; Y83.8 Other surgical procedures as the cause of abnormal reaction of the patient, or of later complication, without mention of misadventure at the time of the procedure; Z80.3 Family history of malignant neoplasm of breast; Z82.3 Family history of stroke; Z82.49 Family history of ischemic heart disease and other diseases of the circulatory system; Z83.3 Family history of diabetes mellitus; Z86.73 Personal history of transient ischemic attack (TIA), and cerebral infarction without residual deficits; Z90.710 Acquired absence of both cervix and uterus; Z95.5 Presence of coronary angioplasty implant and graft; Z98.84 Bariatric surgery status; Z90.49 Acquired absence of other specified parts of digestive tract; Z98.51 Tubal ligation status; Z88.6 Allergy status to analgesic agent; Y92.89 Other specified places as the place of occurrence of the external cause
CPT/HCPCS: 36415; 37224; 73630; 73718; 75716; 76937; 80053; 82306; 82607; 82962; 83036; 83605; 83880; 84443; 84484; 85025; 85610; 85652; 85730; 86141; 87040; 93926; 93971; 94640; 96365; 96367; 96375; 99152; C1725 ×2; C1769; C2623; G0378; J1815; J2250; J2405; Q9967